=== PATIENT | female | born 1980 | race Caucasian/White ===

== ENCOUNTER 2024-01-09 08:47 | Outpatient (CLI) | payer OTHER, SELFPAY ==
--- NOTE | ~2024-01-09 | XR_ITS ---
XR wrist RT min 3V Ordering provider: Kboe Lyons, REFRIGERATING ENGINEER History: . Pain in right wrist . Comparison: None. FINDINGS: BONES: No acute fracture or dislocation. No definite scaphoid fracture. JOINT SPACES: Normal. SOFT TISSUES: Normal. IMPRESSION: No acute osseous abnormality right wrist. Reviewed, dictated and finalized at location A.
== END 2024-01-09 08:48 ==
LOC: MICIMG 08:50
PROVIDERS: PCP Nurse Practitioner Family; Visit Provider Nurse Practitioner Family
DX: M25.531 Pain in right wrist (principal)
CPT/HCPCS: 73110

== ENCOUNTER 2024-04-14 10:05 | Outpatient (CLI) | payer OTHER, SELFPAY ==
--- NOTE | 2024-04-14 10:20 | NEURO_ITS ---
Impression: # Complains of Right forearm discomfort # Normal Nerve Conduction Study. # Normal needle/EMG exam. # No Carpal Tunnel Syndrome # No Ulnar Neuropathy Nerve Conduction Studies Anti Sensory Summary Table Stim Site NR Peak (ms) P-T Amp (?V) Site1 Site2 Delta-P (ms) Dist (cm) Hari (m/s) Right Median Anti Sensory (2-3nd Digit) Wrist 3.2 57.4 Wrist 2-3nd Digit 3.2 14.0 44 Wrist 3.3 35.0 Wrist 2-3nd Digit 3.2 14.0 44 Right Radial Anti Sensory (Base 1st Digit) Wrist 2.1 28.9 Wrist Base 1st Digit 2.1 0.0 Right Ulnar Anti Sensory (5th Digit) Wrist 2.3 62.3 Wrist 5th Digit 2.3 14.0 61 Motor Summary Table Stim Site NR Onset (ms) O-P Amp (mV) Site1 Site2 Delta-0 (ms) Dist (cm) Hari (m/s) Right Median Motor (Abd Poll Brev) Wrist 3.2 10.0 Elbow Wrist 4.8 26.0 54 Elbow 8.0 8.8 Right Ulnar Motor (Abd Dig Minimi) Wrist 2.7 7.6 A Elbow Wrist 4.8 29.0 60 A Elbow 7.5 6.3 F Wave Studies NR F-Lat (ms) L-R F-Lat (ms) Right Median (Mrkrs) (Abd Poll Brev) 26.77 Right Ulnar (Mrkrs) (Abd Dig Min) 27.18 EMG Side Muscle Nerve Root Ins Act Fibs Amp Dur Recrt Comment Right 1stDorInt Ulnar C8-T1 Nml Nml Nml Nml Nml Right Ext Indicis Radial (Post Int) C7-8 Nml Nml Nml Nml Nml Right Ext Digitorum Radial (Post Int) C7-8 Nml Nml Nml Nml Nml Right BrachioRad Radial C5-6 Nml Nml Nml Nml Nml Right PronatorTeres Median C6-7 Nml Nml Nml Nml Nml Right Abd Poll Brev Median C8-T1 Nml Nml Nml Nml Nml Right ABD Dig Min Ulnar C8-T1 Nml Nml Nml Nml Nml MTDD
== END 2024-04-14 10:06 | disposition home or self-care (01) ==
LOC: ANHNEURO 10:07
PROVIDERS: PCP Nurse Practitioner Family; Visit Provider Nurse Practitioner Family
DX: R20.2 Paresthesia of skin (principal)
CPT/HCPCS: 95886; 95909

== ENCOUNTER 2024-07-08 08:46 | Outpatient (CLI) | payer OTHER, SELFPAY ==
--- NOTE | ~2024-07-08 | XR_ITS ---
XR wrist LT min 3V 07/08/2024 08:59 Indication: Carpal tunnel syndrome. Procedure: 4 views left wrist Comparison: 11/19/2018 Findings: There is a side plate and screws transfixing a healed distal radial fracture. One of the di stal screws extends posterior to the radius into the soft tissue. No acute fracture or traumatic zoey lignment. Impression: 1: No acute bone or joint abnormality. Reviewed, dictated and finalized at location A. A REPORTER Impression: 1: No acute bone or joint abnormality.
--- OUTSIDE RECORDS SUMMARY | 2024-07-09 22:00 | XMS_ITS | Encounter Summary ---
Author Organization [facility] Address [address] [place] [address] Care Team Providers Care Wholesale And Retail Merchant Name Role Phone Nava Mckeon MD Primary Care Prov ider Unavailable Encounter Details Date Type Department Care Team (Late st Contact Info) Description 10/03/2000 Outpatient Historical [facility] Internal Medicine [place] [address] [place] [address] Ruben De LaO MD [address] [place] [address] Social History Tobacco Use Types Packs/Day Years Used Date Smoking Tobacco: Never Assessed Comments Unknown Sex and Gender Information Value Date Recorded Sex Assigned at Not on file Legal Sex Female 4:46 AM SOFTWARE QUALITY 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
--- OUTSIDE RECORDS SUMMARY | 2024-07-09 22:00 | XMS_ITS | Encounter Summary ---
Author Organization [facility] Address [address] [place] [address] Care Team Providers Care Simplex Printer Installer Name Role Phone Nava Mckeon MD Primary Care Prov ider Unavailable Encounter Details Date Type Department Care Team (Late st Contact Info) Description 09/17/2002 Outpatient Historical [facility] Internal Medicine [place] [address] [place] [address] Ruben De La O MD [address] [place] [address] Social History Tobacco Use Types Packs/Day Years Used Date Smoking Tobacco: Never Assessed Comments Unknown Sex and Gender Information Value Date Recorded Sex Assigned at Not on file Legal Sex Female 4:46 AM COMMERCIAL LINES ASSISTANT Gender Identity Not on file Sexual Orientation Not on file documented as of this encounter Plan of Treatment Not on file documented as of this encounter Visit Diagnoses Not on filedocumented in this encounter Care Teams Simplex Printer Installer Relationship Specialty Start Date End Date Naav Mckeon MD PCP - General 11/10/08 06/24/11 documented as of this encounter
--- OUTSIDE RECORDS SUMMARY | 2024-07-09 22:00 | XMS_ITS | Continuity of Care Document ---
Author Organization [facility] Address [address] [place] [address] Phone Care Team Providers Care Toolmaker Helper Name Role Phone Administrative, Provider Unavailable Unavail able Procedures Procedure Date Medical Record Copy Medical Record Copy Per Page Office/outpatient visit,est, mod 2007 Disability Form Office/outpatient visit,new, mod 2007 X-ray exam of pelvis, 1-2 views 008 Advance Directives Directive Yes / No Effective Date File Name No Information Encounters Encounter Description Practice Location Reason(s) For Visit Diagnoses Date Provider Providers Copied on Encounter [facility], [address] [place] [address], [id number], [place] tel:[phone] [employer] No Information [address] [place] [address], [address], [id number], [place]. tel:[phone] Office/outpa tient visit,est, mod [facility], [address] [place] [address], [id number], [place] tel:[phone] [facility] No Information 2 8 Amaury Montez. [address] [facility], [facility] [address], [place], [place], [id number], [place]. tel:[phone] [facility], [address] [place] [address], [id number], [place] tel:[phone] [facility] No Information 0200 8 Amaury Montez. [address] [facility], [address], [place], [place], [id number], [place]. tel:[phone] Office[facility]outpa [facility]ient visit,[facility], [address] [facility] [address], [id number], tel:[phone] [facility] No Information 8 Amaury Montez. [address] [facility], [address], [place], [place], [id number], [place]. tel:[phone] Family History Family Member Type Diagnosis Age At Onset No Information Payers Payer name Insurance type Covered constitution party ID Authoriza tion(s) No Information Social History Type Description Quantity Date Captured Comments Sex Female Smoking Status No Information Chief Complaint And Reason For Visit No Information Reason For Referral Reason For Referral No Information History Of Present Illness Encounter Date Complaint History Of Prese nt Illness No Information Functional Status Date Functional Assessmen t No Information Instructions Date Instruction Additional Infor mation No Information Assessments Type Assessment Date No Information Patient Care Teams Name Effective Dates (start - stop) Status Members No Information
--- OUTSIDE RECORDS SUMMARY | 2024-07-09 22:00 | XMS_ITS | Encounter Summary ---
Author Organization [facility] Address [address] [place] [address] Care Team Providers Care Library Circulation Technician Name Role Phone Unavailable Primary Care Provider Unavailabl e Encounter Details Date Type Department Care Team (Late st Contact Info) Description 07/28/2018 Lab Requisition [facility] Care DermPath Lab [address] [facility], [place] [address] Catalina Rueda MD [address] [facility] [address] [place] [address] Social History Tobacco Use Types Packs/Day Years Used Date Smoking Tobacco: Never Assessed Sex and Gender Information Value Date Recorded Sex Assigned at Not on file Gender Identity Not on file Sexual Orientation Not on file documented as of this encounter Plan of Treatment Not on file documented as of this encounter Procedures Procedure Name Priority Date/Time Associated Diagnosis Comments DERMATOPATH TECHNICAL REPORT Routine 07/25/2018 12:00 AM AIR DRIER MACHINE OPERATOR documented in this encounter Results * DERMATOPATH TECHNICAL REPORT (07/25/2018 12:00 AM AIR DRIER MACHINE OPERATOR) Case Report Dermatopathology Report ? Case: [id number] ? Authorizing Provider: ??Catalina Rueda MD ? Collected: ? 07/25/2018 12:00 AM ? Pathologist: ? Urbano Mac MD ? Received: ?07/28/2018 07:05 AM ? Specimen: ?Skin, right post ear ? 6:14 PM [facility] DERMATOPATHOLOGY [facility]ORATORY Addendum 1 At the request of the diagnosing physician, the technical component for CD3, CD20 and CD68 was performed by [facility] Dermatopathology Laboratory. 6:14 PM [facility] DERMATOPATHOLOGY [facility]OR[facility] Addendum electronically signed by Urbano Mac MD on 07/31/2018 at 6:14 PM Clinical History BCC. Non-healing. Check margins. 6:14 PM [facility] DERMATOPATHOLOGY [facility]ORAT[facility] Gross Description Specimen A: Received is one formalin filled container labeled with the patient's name and designated right post ear. The specimen consists of a shave measuring [id number]. Jar 0. [facility] Dermatopathology Laboratory performed the technical component only. 6:14 PM [facility] DERMATOPATHOLOGY [facility]ORAT[facility] Embedded Images 6:14 PM [facility] DERMATOPATHOLOGY [facility]ORAT[facility] DISCLAIMER An external and internal positive and negative controls are appropriate for the histochemical, immunohistochemical and immunofluorescence stain(s) in this case (if any), except where stated explicitly. The performance characteristics of the stain(s) cited in this report were developed and its performance characteristic determined by the Dermatopathology Laboratory at [facility], directed by Dr. Rima Mac. These tests need not be, and therefore are not, approved by the [place] Food and Drug Administration. The tests are used for clinical purposes. 6:14 PM [facility] DERMATOPATHOLOGY [facility]ORATORY Pathology/Cytolog y TISSUE SPECIMEN FROM SKIN / Unknown 07/25/2018 07/28/2018 7:05 AM AIR DRIER MACHINE OPERATOR Catalina Rueda MD LAB - PATHOLOGY/CYT OLOGY ORDERABLES DERMATOPATHOLOGY LABORATORY [facility] - Department of Dermatology [address] [facility], [address] [place] [address], [facility] [phone] documented in this encounter Visit Diagnoses Not on filedocumented in this encounter
--- OUTSIDE RECORDS SUMMARY | 2024-07-09 22:00 | XMS_ITS | Encounter Summary ---
Author Organization [facility] Address [address] [place] [address] Care Team Providers Care Lamp Shades Supervisor Name Role Phone Nava Mckeon MD Primary Care Prov ider Unavailable Encounter Details Date Type Department Care Team (Late st Contact Info) Description 04/16/2007 Outpatient Historical [facility] Internal Medicine [place] [address] [place] [address] Ruben De La O MD [address] [place] [address] Social History Tobacco Use Types Packs/Day Years Used Date Smoking Tobacco: Never Assessed Comments No Sex and Gender Information Value Date Recorded Sex Assigned at Not on file Legal Sex Female 4:46 AM COMMUNITY EDUCATION SPECIALIST Gender Identity Not on file Sexual Orientation Not on file documented as of this encounter Plan of Treatment Not on file documented as of this encounter Visit Diagnoses Not on filedocumented in this encounter Care Teams Lamp Shades Supervisor Relationship Specialty Start Date End Date Nava Mckeon MD PCP - General 11/10/08 06/24/11 documented as of this encounter
--- OUTSIDE RECORDS SUMMARY | 2024-07-09 22:00 | XMS_ITS | Encounter Summary ---
Author Organization [facility] Address [address] [place] [address] Care Team Providers Care Board Worker Name Role Phone Nava Mckeon MD Primary Care Prov ider Unavailable Encounter Details Date Type Department Care Team (Late st Contact Info) Description 04/20/2005 Outpatient Historical [facility] Internal Medicine [place] [address] [place] [address] Ruben De La O MD [address] [place] [address] Social History Tobacco Use Types Packs/Day Years Used Date Smoking Tobacco: Never Assessed Comments Unknown Sex and Gender Information Value Date Recorded Sex Assigned at Not on file Legal Sex Female 4:46 AM TREASURY SPECIALIST Gender Identity Not on file Sexual Orientation Not on file documented as of this encounter Plan of Treatment Not on file documented as of this encounter Visit Diagnoses Not on filedocumented in this encounter Care Teams Board Worker Relationship Specialty Start Date End Date Nava Mckeon MD PCP - General 11/10/08 06/24/11 documented as of this encounter
--- OUTSIDE RECORDS SUMMARY | 2024-07-09 22:00 | XMS_ITS | Encounter Summary ---
Author Organization [facility] Address [address] [place] [address] Care Team Providers Care Aircraft Ordnance Technician Name Role Phone Nava Mckeon MD Primary Care Prov ider Unavailable Encounter Details Date Type Department Care Team (Late st Contact Info) Description 10/12/2003 Outpatient Historical [facility] Internal Medicine [place] [address] [place] [address] Ruben De La O MD [address] [place] [address] Social History Tobacco Use Types Packs/Day Years Used Date Smoking Tobacco: Never Assessed Comments Unknown Sex and Gender Information Value Date Recorded Sex Assigned at Not on file Legal Sex Female 4:46 AM VA UNDERWRITER Gender Identity Not on file Sexual Orientation Not on file documented as of this encounter Plan of Treatment Not on file documented as of this encounter Visit Diagnoses Not on filedocumented in this encounter Care Teams Aircraft Ordnance Technician Relationship Specialty Start Date End Date Nava Mckeon MD PCP - General 11/10/08 06/24/11 documented as of this encounter
--- OUTSIDE RECORDS SUMMARY | 2024-07-09 22:00 | XMS_ITS | Encounter Summary ---
Author Organization [facility] Address [address] [place] [address] Care Team Providers Care Marine Oiler Name Role Phone Nava Mckeon MD Primary Care Prov ider Unavailable Encounter Details Date Type Department Care Team (Late st Contact Info) Description 12/27/1999 Outpatient Historical [facility] Internal Medicine [place] [address] [place] [address] Ruben De La O MD [address] [place] [address] Social History Tobacco Use Types Packs/Day Years Used Date Smoking Tobacco: Never Assessed Comments Unknown Sex and Gender Information Value Date Recorded Sex Assigned at Not on file Legal Sex Female 4:46 AM CATALOG LIBRARY ASSISTANT Gender Identity Not on file Sexual Orientation Not on file documented as of this encounter Plan of Treatment Not on file documented as of this encounter Visit Diagnoses Not on filedocumented in this encounter Care Teams Marine Oiler Relationship Specialty Start Date End Date Nava Mckeon MD PCP - General 11/10/08 06/24/11 documented as of this encounter
--- OUTSIDE RECORDS SUMMARY | 2024-07-09 22:00 | XMS_ITS | Referral Summary ---
Author Organization [facility] Address [address] [place] [address] Care Team Providers Care Panman Name Role Phone Kobe Lyons NP Primary Care Provider [phone] Encounters Date Type Department Care Team Description 04/09/2024 3:23 PM CDT - 04/09/2024 11:59 PM CDT Hospital Encounter [facility] - Imaging [address] [place] [address] Screening mammogram, encounter for Discharge Disposition: Discharge to home or self care from Last 3 Months Allergies Active Allergy Reactions Criticality Noted Date Comments Adhesive Rash Medium Paper tape is ok Latex Rash Medium 01/19/2015 FROM LATEX BANDAIDS SKIN PEELING Oxycodone Vomiting Low Percocet -vomiting Medications cetirizine (ZyrTEC) 10 mg tabletIndicatio ns:Seasonal Allergic Rhinitis Take 10 mg by mouth nightly Active valACYclovir (VALTREX) 1 gram tablet TK 2 TS PO Q 12 H FOR 1 DAY PRN for cold sores 2 8 Active ipratropium (ATROVENT) 0.03 % nasal spray U 2 SPRAYS IEN TID PRN 5 8 Active PROAIR RESPICLICK 90 mcg/actuation aerosol powdr breath activated INL 2 PFS PO Q 4 H PRN 0 9 Active multivitamin with minerals (HAIR,SKIN AND NAILS ORAL) Take 1 tablet by mouth every morning Active Lactobacillus acidophilus (PROBIOTIC ORAL) Take 1 capsule by mouth nightly Active gluc wheatley/chondro wheatley A/vit C/Mn (GLUCOSAMINE 1500 COMPLEX ORAL)Indication s:arthritis Take 1 tablet by mouth 2 (two) times a day Active levonorgestreL (Mirena) IUD Mirena 20 mcg/24 hours (5 yrs) 52 mg intrauterine device Take by intrauterine route. 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 Dysuria 02/17/2021 Fracture of pelvis (CMS/HCC) 02/17/2021 Lower urinary tract infectious disease Neuropathy 02/17/2021 Otalgia 02/17/2021 Seasonal allergies 02/17/2021 Secondary peripheral neuropathy 02/17/2021 Shoulder pain 02/17/2021 Ulcerative lesion 02/17/2021 Upper respiratory infection 02/17/2021 Injury of left wrist 11/21/2018 Closed fracture of left distal radius 11/21/2018 Overview (11/21/2018): Added automatically from request for surgery [id number] Acne 10/22/2014 Overview (09/20/2016): Acne Immunizations Name Administration Dates Next Due Flucelvax Influenza Quad 03/25/2017,06/08/2013 Influenza, Quadrivalent, Spl it, Preservative Free, Intramuscular 03/28/2018 Influenza, Trivalent, IM (MDV) 04/25/2014,2012,04/25/2010 Influenza, Trivalent, Preser vative Free, Intramuscular 03/22/2016,04/05/2015 Tdap 10/14/2017,11/20/2007 Social History Tobacco Use Types Packs/Day Years Used Date Smoking Tobacco: Never Smokeless Tobacco: Never Alcohol Use Standard Drinks/Week Comments Yes 0 (1 standard drink = 0.6 oz pur e alcohol) SOCIAL Humiliation, Afraid, Rape, and Kick questionnair e Answer Date Recorded Fear of Current or Ex-Partner Patient declined 0 01/14/2019 Emotionally Abused Patient declined 01/14/2019 Physically Abused Patient declined 01/14/2019 Sexually Abused Patient declined 01/14/2019 Social Connection and Isolation Panel [NHANES] A nswer Date Recorded Frequency of Communication with Friends and Fami ly Patient declined 01/14/2019 Frequency of Social Gatherings with Friends and Family Patient declined 01/14/2019 Attends Buddhist Services Patient declined 12/17 Active Member of Clubs or Organizations Patient declined 01/14/2019 Attends Club or Organization Meetings Patient de clined 01/14/2019 Marital Status Patient declined 01/14/2019 AUDIT-C Answer Date Recorded Frequency of Alcohol Consumption Monthly or less 11/24/2018 Average Number of Drinks Not on file 019 Frequency of Binge Drinking Not on file 11/15 Overall Financial Resource Strain (CARDIA) Answe r Date Recorded Difficulty of Paying Living Expenses Patient dec lined 01/14/2019 [facility] - Occupational Stress Questionnaire Answer Date Recorded Feeling of Stress Patient declined 01/14/2019 Exercise Vital Sign Answer Date Recorde d Days of Exercise per Week Patient declined 01/14 Minutes of Exercise per Session Patient declined 01/14/2019 Hunger Vital Sign Answer Date Recorded Worried About Running Out of Food in the Last Ye ar Patient declined 01/14/2019 Ran Out of Food in the Last Year Patient decline d 01/14/2019 PRAPARE - Transportation Answer Date Re corded Lack of Transportation (Medical) Patient decline d 01/14/2019 Lack of Transportation (Non-Medical) Patient dec lined 01/14/2019 Comments No Sex and Gender Information Value Date Recorded Sex Assigned at Not on file Legal Sex Female 2:09 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 Gender Identity Female 02/16/2020 7:54 PM CDT Sexual Orientation Straight 02/16/2020 7: 54 PM CDT Last Filed Vital Signs Vital Sign Reading Time Taken Comments Blood Pressure 114/70 02/17/2021 1:22 PM CDT Pulse 82 11/27/2018 2:30 PM CDT Temperature 36.7 ??C (98.1 ??F) 11/27/2018 2:17 PM CD T Respiratory Rate 16 11/27/2018 2:17 PM CDT Oxygen Saturation 95% 11/27/2018 2:30 PM CDT Inhaled Oxygen Concentration - - Weight 54.9 kg (121 lb) 02/17/2021 1:22 PM CDT Height 160 cm (5' 3 ) 02/17/2021 1:22 PM CDT Body Mass Index 21.43 02/17/2021 1:22 PM CDT Plan of Treatment Not on file Medical Devices Implanted Type Area Electrical Maintenance Mechanic Device Identifier Shelf Expiration Date Model / Serial / Lot Trimed 3 Hole Bearing - Left Implanted:Qty: 1 on 11/27/2018 by Ro Mcdowell MD at [facility] Plate Left: [employer] Description:Ref#[id number] [employer] Trx2.3-18 2.3mm 18mm Ankle Cortical Screw Bone - [id number] Implanted:Qty: 2 on 11/27/2018 by Ro Mcdowell MD at [facility] Left: [employer] TRX2.3-18 / / [employer] Tpeg-16 16mm Thread Lock Torx Wrist Volar Peg Fixation - [id number] Implanted:Qty: 3 on 11/27/2018 by Ro Mcdowell MD at [facility] Left: [employer] TPEG-16 / / [employer] Tpeg-18 18mm Thread Lock Torx Wrist Volar Peg Fixation - [id number] Implanted:Qty: 2 on 11/27/2018 by Ro Mcdowell MD at [facility] Left: [employer] TPEG-18 / / [employer] Hex3.2-10 3.2mm 10mm Hexagonal Cortical Screw Bone Ankle Fixation System - [id number] Implanted:Qty: 2 on 11/27/2018 by Ro Mcdowell MD at [facility] Left: [employer] HEX3.2-10 / / [employer] Hex 3212 3.2mm 12mm Hexagonal Cortical Screw Bone Ankle Fixation System - [id number] Implanted:Qty: 1 on 11/27/2018 by Ro Mcdowell MD at [facility] Left: [employer] HEX 3212 / / Explanted Type Area Electrical Maintenance Mechanic Device Identifier Shelf Expiration Date Model / Serial / Lot Trim[employer] Trx2.3-18 2.3mm 18mm Ankle Cortical Screw Bone - [id number] Explanted:Qty: 1 on 11/27/2018 at [facility] [employer] TRX2.3-18 / / [employer] Hex 3214 3.2mm 14mm Hexagonal Cortical Screw Bone Ankle Fixation System - [id number] Implanted:Qty: 1 Explanted:Qty: 1 on 11/27/2018 at [facility] Left: [employer] HEX 3214 / / Procedures Procedure Name Priority Date/Time Associated Diagnosis Comments SCREENING MAMMOGRAM BILATERAL W ANTOINE Schedule Routine, Read Routine (OP Routine) 04/09/2024 3:45 PM CDT Screening mammogram, encounter for PAP WITH REFLEX TO HIGH RISK HPV Routine 02/17/2021 5:34 PM CDT Screening for malignant neoplasm of the cervix from Last 3 Months or Most Recently Relevant to Health Maintenance Results * Screening Mammogram Bilateral W Antoine (04/09/2024 3:45 PM CDT) Anatomical Region Laterality Modality Breast Bilateral Mammography Narrative 04/09/2024 5:20 PM CDT Examination: Screening Mammogram Bilateral W Antoine: 04/09/24 Clinical: Screening mammogram, encounter for. Prior Study Comparisons: Comparison was made to the prior available relevant studies at the time of interpretation. Findings: Screening Mammogram Bilateral W Antoine Bilateral No significant masses, malignant type calcifications, skin thickening, nipple retraction, or significant lymphadenopathy is noted in either breast. Computer Aided Detection was utilized for the interpretation of this study. The breasts are extremely dense, which lowers the sensitivity of mammography. The patient will be notified of results by letter. Impression: BI-RADS?? ATLAS category (overall): 2 - Benign ?? There is no mammographic evidence of malignancy. Routine Screening Mammogram in 1 Yr is recommended for bilateral Overall Assessment: 2 - Benign us Self Screening Mammogram IMG MAMMO PROCEDURES Fi nal Result * Pap with reflex to High Risk HPV (02/17/2021 5:34 PM CDT) Swab (Pap test) 02/17/2021 5 :34 PM CDT 02/25/2021 12:12 PM CDT Narrative PATHOLOGY [facility] - 03/02/2021 10:19 AM CDT EPIC results best viewed via link to PDF [address] ??[id number] Tele: ?? Tiarra Grigsby MD - Oral Surgery Physician CYTOLOGY REPORT Note to Patients: This report may contain a detailed description of human tissue sent by a health care provider to the laboratory for pathologic evaluation. The content of this report is essential for diagnosis and may provide important critical findings. This information may be unfamiliar to patients to review without a medical professional present. It is advised that the patient review this report in the presence of a health care provider who can answer questions and explain the details. Patient Name: ??RONEY SEWELL Address: ??[address] [place] [address] Gender: ??F : ??1980 (Age: 40) Service: ?? Location: ?? Hospital #: ??[id number] Patient Type: ??[facility] SPECIMEN Taken: ??02/17/2021 Reported: ??03/02/2021 Physician(s): ? Kirsten Zazueta M.D. FINAL DIAGNOSIS: Specimen Type: ?- ThinPrep Pap w/ reflex HPV Statement of Specimen Adequacy: Source: ??Cervical/Endocervical ?- Satisfactory for interpretation ?- Endocervical /Transformation Zone component present ?- Case screened using computer assisted imaging technology General Categorization: ?- Negative for intraepithelial lesion or malignancy ?? tgates/03/02/2021 10:19 GINGER Wolff (ASCP) ?? Report Reviewed and Electronically Signed By ??GINGER Wolff (ASCP) Clerical Data Follow A; [id number] CLINICAL DIAGNOSIS AND HISTORY Menstrual History: Amenorrhea Contraceptive History: IUD REPORT IMAGES AND/OR SCANNED DOCUMENTS ONLY VIEWABLE IN PDF FORMAT The Pap test is a screening test used to aid in the detection of cervical cancer and its precursors. It should not be the sole means by which malignant and premalignant lesions are diagnosed. ??Both false negative and false positive results may occur. ??It also has poor sensitivity for the detection of endometrial lesions and should not be used to evaluate suspected endometrial abnormalities. ??For these reasons it is most important to obtain Pap tests at regular intervals, as recommended by your physician or nurse practitioner. us Kirsten Zazueta MD LAB CYTOLOGY ORDERABLES Fin al Result PATHOLOGY [facility] Laboratory Receiving [address] [place] [address] from Last 3 Months or Most Recently Relevant to Health Maintenance Insurance [facility] HMO/PPO Address: [address] [address] [place] [address] [facility] CHOICE PLUS [facility] HMO/PPO Address: [address] [address] [place] [address] Advance Directives For more information, please contact: [phone] Documents on File Type Date Recorded Patient Poured Wall Foreman Expl anation ADVANCE DIRECTIVE 12/03/2018 1:32 PM POWER OF HOSPITAL AIDE-FINANCIAL/MEDICAL ADVANCE DIRECTIVE 11/28/2018 8:05 PM ADVANCE DIRECTIVE 11/27/2018 9:53 AM POWER OF HOSPITAL AIDE-MEDICAL ADVANCE DIRECTIVE 11/27/2018 9:50 AM POWER OF HOSPITAL AIDE-MEDICAL ADVANCE DIRECTIVE 01/21/2015 12:00 AM POWER OF HOSPITAL AIDE FINANCIAL/MEDICAL Care Teams Panman Relationship Specialty Start Date End Date Kobe Lyons, SHIPPING TECHNICIAN [address] [place] [address] PCP - General Family Medicine 01/22/24
--- OUTSIDE RECORDS SUMMARY | 2024-07-09 22:00 | XMS_ITS | Encounter Summary ---
Author Organization [facility] Address 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 Gender Identity Not on file Sexual Orientation Not on file documented as of this encounter Plan of Treatment Not on file documented as of this encounter Procedures Procedure Name Priority Date/Time Associated Diagnosis Comments TSH REFLEXIVE Routine 03/15/2006 12:40 PM CDT CBC WITH DIFFERENTIAL Routine 03/15/2006 12:40 PM CDT CBC WITH DIFFERENTIAL Routine 03/15/2006 12:40 PM CDT BASIC METABOLIC PANEL Routine 03/15/2006 12:40 PM CDT documented in this encounter Results * (ABNORMAL) CBC WITH DIFFERENTIAL (03/15/2006 12:40 PM CDT) NEUTROPHILS 40(L) 45 - 70 % INTERFAC E SYSTEM LYMPHOCYTES 48(H) 16 - 45 % INTERFAC E SYSTEM MONOCYTES 8 3 - 13 % INTERFACE SYSTEM EOSINOPHILS 3 0 - 7 % INTERFAC E SYSTEM BASOPHILS 1 0 - 2 % INTERFACE SYSTEM NEUTROPHIL ABSOLUTE 1.98 1.90 - 7.00 K/uL INTERFACE SYSTEM LYMPHOCYTE ABSOLUTE 2.41 0.70 - 4.50 K/uL INTERFACE SYSTEM MONOCYTE ABSOLUTE 0.41 0.10 - 1.30 K/uL INTERFACE SYSTEM EOSINOPHIL ABSOLUTE 0.14 0.00 - 0.70 K/uL INTERFACE SYSTEM BASOPHILS ABSOLUTE 0.04 0.00 - 0.20 K/uL INTERFACE SYSTEM 03/15/2006 12:4 0 PM CDT Ruben De La O MD HEMATOLOGY ORDERABLES Final R esult Performing Organization Address [facility] de Phone Number INTERFACE SYSTEM Refer to clinic/hospital department * (ABNORMAL) CBC WITH DIFFERENTIAL (03/15/2006 12:40 PM CDT) [facility] WBC 5.0 4.0 - 9.8 K/uL INTERFACE SYSTEM RBC 4.63 3.90 - 4.90 M/uL INTERFACE SYSTEM HEMOGLOBIN 13.4 11.8 - 14.8 g/dL INTERFACE SYSTEM HEMATOCRIT 39.6 35.5 - 44.0 % INTERFACE SYSTEM MCV 85.5 82.0 - 99.0 fL INTERFACE SYSTEM MCH 28.9 27.2 - 32.6 pg INTERFACE SYSTEM MCHC 33.8 31.5 - 35.5 % INTERFACE SYSTEM RDW 11.7 11.5 - 14.5 % INTERFACE SYSTEM RDW-STDEV 36.3(L) 37.1 - 48.7 fL INTERFACE SYSTEM PLATELETS 239 140 - 350 K/uL INTERFACE SYSTEM MPV 11.0 9.3 - 12.4 fL INTERFACE SYSTEM 03/15/2006 12:4 0 PM CDT Ruben De La O MD HEMATOLOGY ORDERABLES Final R esult Performing Organization Address [facility] Co de Phone Number INTERFACE SYSTEM Refer to clinic/hospital department * TSH REFLEXIVE (03/15/2006 12:40 PM CDT) TSH 1.02 0.27 - 4.20 uU/mL INTERFACE SYSTEM 03/15/2006 12:4 0 PM CDT Ruben De La O MD CHEMISTRY ORDERABLES Final Re sult Performing Organization Address [facility] de Phone Number INTERFACE SYSTEM Refer to clinic/hospital department * BASIC METABOLIC PANEL (03/15/2006 12:40 PM CDT) GLUCOSE 88 65 - 99 mg/dL INTERFACE SYSTEM CREATININE 0.8 0.4 - 1.2 mg/dL INTERFACE SYSTEM CALCIUM 9.2 8.4 - 10.2 mg/dL INTERFACE SYSTEM BUN 12 6 - 20 mg/dL INTERFACE SYSTEM SODIUM 140 135 - 145 mmol/L INTERFACE SYSTEM POTASSIUM 4.0 3.5 - 4.9 mmol/L INTERFACE SYSTEM CHLORIDE 103 96 - 108 mmol/L INTERFACE SYSTEM CO2 26 22 - 30 mmol/L INTERFACE SYSTEM 03/15/2006 12:4 0 PM CDT Ruben De La O MD CHEMISTRY ORDERABLES Final Re sult Performing Organization Address [place]/[facility] Phone Number INTERFACE SYSTEM Refer to clinic/hospital department documented in this encounter Visit Diagnoses Diagnosis Routine general medical examination at a health care facility- Primary documented in this encounter Care Teams Research Recruiter Relationship Specialty Start Date End Date Nava Mckeon MD PCP - General 11/10/08 06/24/11 documented as of this encounter
--- OUTSIDE RECORDS SUMMARY | 2024-07-09 22:00 | XMS_ITS | Encounter Summary ---
Author Organization [facility] Address 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
--- OUTSIDE RECORDS SUMMARY | 2024-07-09 22:00 | XMS_ITS | Encounter Summary ---
Author Organization Address 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
--- OUTSIDE RECORDS SUMMARY | 2024-07-09 22:00 | XMS_ITS | Encounter Summary ---
Author Organization [facility] Address 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
--- OUTSIDE RECORDS SUMMARY | 2024-07-09 22:00 | XMS_ITS | Encounter Summary ---
Author Organization [facility] Address 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
--- OUTSIDE RECORDS SUMMARY | 2024-07-09 22:00 | XMS_ITS | Encounter Summary ---
Author Organization [facility] Address 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
--- OUTSIDE RECORDS SUMMARY | 2024-07-09 22:00 | XMS_ITS | Encounter Summary ---
Author Organization [facility] Address [address] [place] [address] Care Team Providers Care Thumb Sewer Name Role Phone Nava Mckeon MD Primary Care Prov ider Unavailable Encounter Details Date Type Department Care Team (Late st Contact Info) Description 03/29/1998 Outpatient Historical [facility] Internal Medicine [place] [address] [place] [address] Ruben De La O MD [address] [place] [address] Social History Tobacco Use Types Packs/Day Years Used Date Smoking Tobacco: Never Assessed Comments Unknown Sex and Gender Information Value Date Recorded Sex Assigned at Not on file 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
--- OUTSIDE RECORDS SUMMARY | 2024-07-09 22:00 | XMS_ITS | Encounter Summary ---
Author Organization [facility] Address 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
--- OUTSIDE RECORDS SUMMARY | 2024-07-09 22:00 | XMS_ITS | Encounter Summary ---
Author Organization [facility] Address 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
--- OUTSIDE RECORDS SUMMARY | 2024-07-09 22:00 | XMS_ITS | Encounter Summary ---
Author Organization [facility] Address [address] [place] [address] Care Team Providers Care Community Center Coordinator Name Role Phone Nava Mckeon MD Primary Care Prov ider Unavailable Encounter Details Date Type Department Care Team (Late st Contact Info) Description 04/02/2008 Outpatient Historical [facility] Ruben De La O MD [address] [place] [address] Other Malaise and Fatigue Social History Tobacco Use Types Packs/Day Years Used Date Smoking Tobacco: Never Alcohol Use Standard Drinks/Week Comments Not Asked 0 (1 standard drink = 0.6 oz pur e alcohol) Comments No Sex and Gender Information Value Date Recorded Sex Assigned at Not on file 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
--- OUTSIDE RECORDS SUMMARY | 2024-07-09 22:00 | XMS_ITS | Encounter Summary ---
Author Organization [email or web address] Address 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
--- OUTSIDE RECORDS SUMMARY | 2024-07-09 22:00 | XMS_ITS | Encounter Summary ---
Author Organization [facility] Address [address] [place] [address] Care Team Providers Care Electrician Constructor Supervisor Name Role Phone Nava Mckeon MD Primary Care Prov ider Unavailable Encounter Details Date Type Department Care Team (Late st Contact Info) Description 09/24/2001 Outpatient Historical [facility] Internal Medicine [place] [address] [place] [address] Ruben De La O MD [address] [place] [address] Social History Tobacco Use Types Packs/Day Years Used Date Smoking Tobacco: Never Assessed Comments Unknown Sex and Gender Information Value Date Recorded Sex Assigned at Not on file 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
--- OUTSIDE RECORDS SUMMARY | 2024-07-09 22:00 | XMS_ITS | Encounter Summary ---
Author Organization [facility] Address [address] [place] [address] Care Team Providers Care Battery Assembler Plastic Name Role Phone Nava Mckeon MD Primary Care Prov ider Unavailable Encounter Details Date Type Department Care Team (Late st Contact Info) Description 12/11/2002 Outpatient Historical [facility] Internal Medicine [place] [address] [place] [address] Ruben De La O MD [address] [place] [address] Social History Tobacco Use Types Packs/Day Years Used Date Smoking Tobacco: Never Assessed Comments Unknown Sex and Gender Information Value Date Recorded Sex Assigned at Not on file 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
--- OUTSIDE RECORDS SUMMARY | 2024-07-09 22:00 | XMS_ITS | Referral Summary ---
Author Organization [facility] Address [address] [place] [address] Care Team Providers Care Rn Advice Name Role Phone Unavailable Primary Care Provider Unavailabl e Source Comments [facility],non-owned Affiliates and Associated Physician Practices is amultiple site organization consisting of ambulatory clinics and hospital sitesin [place], [place], [place] and [place]. This disclosure is being madepursuant to the Care Everywhere program and may not contain all information available regarding this patient. Last updated 18.[facility] Social History Tobacco Use Types Packs/Day Years Used Date Smoking Tobacco: Never Assessed Sex and Gender Information Value Date Recorded Sex Assigned at Not on file Gender Identity Not on file Sexual Orientation Not on file Plan of Treatment [place] [address]
--- OUTSIDE RECORDS SUMMARY | 2024-07-09 22:00 | XMS_ITS | Encounter Summary ---
Author Organization [facility] Address 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
--- OUTSIDE RECORDS SUMMARY | 2024-07-09 22:00 | XMS_ITS | Encounter Summary ---
Author Organization [facility] Address 

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
--- OUTSIDE RECORDS SUMMARY | 2024-07-09 22:00 | XMS_ITS | Encounter Summary ---
Author Organization [facility] Address 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
--- OUTSIDE RECORDS SUMMARY | 2024-07-09 22:00 | XMS_ITS | Encounter Summary ---
Author Organization [facility] Address [address] [place] [address] Care Team Providers Care Manager Immunology Name Role Phone Nava Mckeon MD Primary Care Prov ider Unavailable Encounter Details Date Type Department Care Team (Late st Contact Info) Description 10/04/[address] 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
--- OUTSIDE RECORDS SUMMARY | 2024-07-09 22:00 | XMS_ITS | Encounter Summary ---
Author Organization [facility] Address [address] [place] [address] Care Team Providers Care On Site Construction Superintendent Name Role Phone Nava Mckeon MD Primary Care Prov ider Unavailable Encounter Details Date Type Department Care Team (Late st Contact Info) Description 12/30/2003 Outpatient Historical [facility] Internal Medicine [place] [address] [place] [address] Ruben De La O MD [address] [place] [address] Social History Tobacco Use Types Packs/Day Years Used Date Smoking Tobacco: Never Assessed Comments Unknown Sex and Gender Information Value Date Recorded Sex Assigned at Not on file 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
--- OUTSIDE RECORDS SUMMARY | 2024-07-09 22:00 | XMS_ITS | Clinical Summary ---
Author Organization [facility] Address [address] [place] [address] Care Team Providers Care Second Rigger Name Role Phone Unavailable Primary Care Provider Unavailabl e Source Comments [facility],non-owned Affiliates and Associated Physician Practices is amultiple site organization consisting of ambulatory clinics and hospital sitesin [place], [place], [place] and [place]. This disclosure is being madepursuant to the Care Everywhere program and may not contain all information available regarding this patient. Last updated 18.[facility] [employer] Social History Tobacco Use Types Packs/Day Years Used Date Smoking Tobacco: Never Assessed Sex and Gender Information Value Date Recorded Sex Assigned at Not on file Gender Identity Not on file Sexual Orientation Not on file Plan of Treatment Health Maintenance Due Date Last Done Comments LIPID TESTING 1979 MAMMOGRAM 1979 PAP SMEAR 1979 HIV SCREENING 1994 HEPATITIS C SCREENING 08/09/1997 DTAP/TDAP/TD VACCINES (1 - Tdap) 1998 HEPATITIS B VACCINE (1 of 3 - 19+ 3-dose series) 1998 COVID-19 VACCINE (2023-2 5 season) 2024 INFLUENZA VACCINE (#1) 2024 DEPRESSION SCREENING 06/17/2024 ZOSTER VACCINE (1 of 2) 2029 HIB VACCINE Aged Out No longer eligi ble based on patient's age to complete this topic HPV VACCINE Aged Out No longer eligi ble based on patient's age to complete this topic MENINGOCOCCAL (Group B) VACCINE Aged Out No longer eligible based on patient's age to complete this topic MENINGOCOCCAL VACCINE Aged Out No patricia nithya eligible based on patient's age to complete this topic PNEUMOCOCCAL VACCINE Aged Out No long er eligible based on patient's age to complete this topic
--- OUTSIDE RECORDS SUMMARY | 2024-07-09 22:00 | XMS_ITS | Encounter Summary ---
Author Organization [facility] Address 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
--- OUTSIDE RECORDS SUMMARY | 2024-07-09 22:00 | XMS_ITS | Encounter Summary ---
Author Organization [facility] Address 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
--- OUTSIDE RECORDS SUMMARY | 2024-07-09 22:00 | XMS_ITS | Patient Health Summary ---
Author Organization [facility] Address [address] [place] [address] Care Team Providers Care Supervisor Winding Department Name Role Phone Unavailable Primary Care Provider Unavailabl e Note from [facility],non-owned Affiliates and Associated Physician Practices is amultiple site organization consisting of ambulatory clinics and hospital sitesin [place], [place] and [place]. This disclosure is being madepursuant to the Care Everywhere program and may not contain all information available regarding this patient. Last updated 18.[facility] Social History Tobacco Use Types Packs/Day Years Used Date Smoking Tobacco: Never Assessed Sex and Gender Information Value Date Recorded Sex Assigned at Not on file Gender Identity Not on file Sexual Orientation Not on file Procedures * DERMATOPATH TECHNICAL REPORT(Performed 07/25/2018) Results * DERMATOPATH TECHNICAL REPORT (07/25/2018 12:00 AM SENIOR RISK ANALYST) Case Report Dermatopathology Report ? Case: [id number] ? Authorizing Provider: ??Catalina Rueda MD ? Collected: ? 07/25/2018 12:00 AM ? Pathologist: ? Urbano Mac MD ? Received: ?07/28/2018 07:05 AM ? Specimen: ?Skin, right post ear ? 6:14 PM [facility] Addendum 1 At the request of the diagnosing physician, the technical component for CD3, CD20 and CD68 was performed by [facility] Dermatopathology [facility]. 6:14 PM [facility] Addendum electronically signed by Urbano Mac MD on 07/31/2018 at 6:14 PM Clinical History BCC. Non-healing. Check margins. 6:14 PM [facility] Gross Description Specimen A: Received is one formalin filled container labeled with the patient's name and designated right post ear. The specimen consists of a shave measuring [id number]. Jar 0. [facility]at[facility] performed the technical component only. 6:14 PM [facility] Embedded Images 6:14 PM [facility] DISCLAIMER An external and internal positive and negative controls are appropriate for the histochemical, immunohistochemical and immunofluorescence stain(s) in this case (if any), except where stated explicitly. The performance characteristics of the stain(s) cited in this report were developed and its performance characteristic determined by the Dermatopathology Laboratory at [facility], directed by Dr. Rima Mac. These tests need not be, and therefore are not, approved by the [place] Food and Drug Administration. The tests are used for clinical purposes. 6:14 PM [facility] Pathology/Cytolog y TISSUE SPECIMEN FROM SKIN / Unknown 07/25/2018 07/28/2018 7:05 AM SENIOR RISK ANALYST Catalian Rueda MD LAB - PATHOLOGY/CYT OLOGY ORDERABLES DERMATOPATHOLOGY LABORATORY [facility] - Department of Dermatology [address] [place] [address] 5th Floor Lab [address] [place], [place] [id number] [place] [address]
--- OUTSIDE RECORDS SUMMARY | 2024-07-09 22:00 | XMS_ITS | Clinical Summary ---
Author Organization [facility] Address [address] [place] [address] Care Team Providers Care Manager Placement Name Role Phone Kobe Lyons NP Primary Care Provider Allergies Active Allergy Reactions Criticality Noted Date [...] Take by intrauterine route. Active vit D3-vit Y-rtkedizcy-dgp s [id number] klfc-pju-ju-mg tablet Take by mouth Active pregabalin (LYRICA) [...] (11/21/2018): Added automatically from request for surgery [id number] Acne 10/22/2014 Overview (09/20/2016): Acne Encounters Date Type Department Care Team Description 04/09/2024 3:23 PM CDT - 04/09/2024 11:59 PM CDT Hospital Encounter [facility] - Imaging [address] [place] [address] Screening mammogram, encounter for Discharge Disposition: Discharge to home or self care from Last 3 Months Immunizations Name Administration Dates Next Due Flucelvax Influenza Quad 03/25/2017,06/08/2013 Influenza, Quadrivalent, Spl it, Preservative Free, Intramuscular 03/28/2018 Influenza, Trivalent, IM (MDV) 04/25/2014,2012,04/25/2010 Influenza, Trivalent, Preser vative Free, Intramuscular 03/22/2016,04/05/2015 Tdap 10/14/2017,11/20/2007 Surgical History Surgery Date Site/Laterality Comments TONSILLECTOMY OTHER SURGICAL HISTORY [place] Correction PILONIDAL CYSTECTOMY WISDOM TOOTH EXTRACTION Medical History Medical History Date Comments Hx Other Medical Acne; Comments: 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 sores Asthma Bronchitis Family History Medical History Relation Name Comments No Known Problems Father Breast cancer Maternal Grandmother recurr ed same breast Breast cancer Mother Cancer, breast ; Hypertension Mother Hypertension; Anesthesia problems Sister Relation Name Status Comments Father Father's Sister (Age 57) Maternal Grandmother Alive Mother Alive Mother's Sister 1 Alive Mother's Sister 2 Alive Mother's Sister 3 Alive Paternal Grandmother (Age 70) Sister Alive Social History Tobacco Use Types Packs/Day Years [...] Friends and Family Patient declined 01/14/2019 Attends Gnostic[employer] Services Patient declined 12/17 Active Member of [...] Paying Living Expenses Patient dec lined 01/14/2019 [facility] [place] [facility] Occupat ional Health - Occupational Stress [...] on file Legal Sex Female 2:[address] 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 Gender Identity Female 02/16/2020 7:54 PM CDT Sexual Orientation Straight 02/16/2020 7: 54 PM CDT Obstetrics History Last Filed Vital Signs Vital Sign Reading [...] 02/17/2021 1:22 PM CDT Plan of Treatment Health Maintenance Due Date Last Done Comments Depression Screening 1980 Hepatitis C Screening 1980 Varicella Vaccines (1 of 2 - 13+ 2-dose series) 1992 Hepatitis B Screening 1997 Cervical Cancer Screening 02/17/20222020, 02/17/2020, 02/08/2017, Additional history exists Regular Well Visit/Exam 18-64 02/17/2022 02/17/2021, 02/17/2020, 02/13/2019, Additional history exists Influenza Vaccine (#1) 2024 , 03/28/2018, 03/25/2017, Additional history exists Breast Cancer Screening-Mammogram 04/09/2025 04/09/2024, 02/28/2023, 02/20/2022, Additional history exists DTaP/Tdap/Td Vaccine (3 - Td or Tdap) 10/15/2027 10/14/2017, 11/20/2007 HPV Vaccines Aged Out No longer eligi ble based on patient's age to complete this topic Pneumococcal vaccine <65 Aged Out No longer eligible based on patient's age to complete this topic Medical Devices Implanted Type Area Machine Carton Marker Device Identifier Shelf Expiration Date Model / Serial / Lot Trimed 3 Hole Bearing - Left Implanted:Qty: 1 on 11/27/2018 by Ro Mcdowell MD at [facility] Plate Left: [employer] Description:Ref#[id number] [employer] Trx2.3-18 2.3mm 18mm Ankle Cortical Screw Bone - [id number] Implanted:Qty: 2 on 11/27/2018 by Ro Mcdowell MD at [facility] Left: [employer] TRX2.3-18 / / [employer] Tpeg-16 16mm Thread Lock Torx Wrist Volar Peg Fixation - [id number] Implanted:Qty: 3 on 11/27/2018 by Ro Mcdowell MD at [facility] Left: [employer] TPEG-16 / / [employer] Tpeg-18 18mm Thread Lock Torx Wrist Volar Peg Fixation - [id number] Implanted:Qty: 2 on 11/27/2018 by Ro Mcdowell MD at [facility] Left: [employer] TPEG-18 / / [employer] Hex3.2-10 3.2mm 10mm Hexagonal Cortical Screw Bone Ankle Fixation System - [id number] Implanted:Qty: 2 on 11/27/2018 by Ro Mcdowell MD at [facility] Left: [employer] HEX3.2-10 / / [employer] Hex 3212 3.2mm 12mm Hexagonal Cortical Screw Bone Ankle Fixation System - [id number] Implanted:Qty: 1 on 11/27/2018 by Ro Mcdowell MD at [facility] Left: [employer] HEX 3212 / / Explanted Type Area Machine Carton Marker Device Identifier Shelf Expiration Date Model / Serial / Lot Trimed Inc Trx2.3-18 2.3mm 18mm Ankle Cortical Screw Bone - [id number] Explanted:Qty: 1 on 11/27/2018 at [facility] [employer] TRX2.3-18 / / [employer] Hex 3214 3.2mm 14mm Hexagonal Cortical Screw Bone Ankle Fixation System - [id number] Implanted:Qty: 1 Explanted:Qty: 1 on 11/27/2018 at [facility] Left: [employer] HEX 3214 / / Procedures Procedure [...] CDT 02/25/2021 12:12 PM CDT Narrative PATHOLOGY [facility] - 03/02/2021 10:19 AM CDT EPIC results best viewed via link to PDF [address] ??[id number] Tele: ?? Tiarra Grigsby MD - Central Processing Technician CYTOLOGY REPORT Note to Patients: This report [...] the details. Patient Name: ??RONEY SEWELL Address: ??[address] [place] [address], [place], [place] [address] Gender: ??F : ??1980 (Age: 40) Service: ?? Location: ?? Hospital #: ??[id number] Patient Type: ??[facility] SPECIMEN Taken: ??02/17/2021 Reported: ??03/02/2021 Physician(s): ? [...] LAB CYTOLOGY ORDERABLES Fin al Result PATHOLOGY [facility] Laboratory Receiving [address] [place] [address] from Last 3 Months or Most Recently Relevant to Health Maintenance Insurance [employer] [place] [facility] CHOICE PLUS [facility] CHOICE PLUS Advance Directives For more information, please contact: [phone] Documents on File Type Date Recorded Patient Business Analyst Project Manager Expl anation ADVANCE DIRECTIVE 12/03/2018 1:32 PM POWER OF TEXTILE CHEMIST-FINANCIAL/MEDICAL ADVANCE DIRECTIVE 11/28/2018 8:05 PM ADVANCE DIRECTIVE 11/27/2018 9:53 AM POWER OF TEXTILE CHEMIST-MEDICAL ADVANCE DIRECTIVE 11/27/2018 9:50 AM POWER OF TEXTILE CHEMIST-MEDICAL ADVANCE DIRECTIVE 01/21/2015 12:00 AM POWER OF TEXTILE CHEMIST FINANCIAL/MEDICAL Care Teams Manager Placement Relationship Specialty Start Date End Date Kobe Lyons NP [address] [place] [id number] PCP - General Family Medicine 01/22/24
--- OUTSIDE RECORDS SUMMARY | 2024-07-09 22:00 | XMS_ITS | Encounter Summary ---
Author Organization [facility] Address [address] [place] [address] Care Team Providers Care Juvenile Detention Officer Name Role Phone Nava Mckeon MD Primary Care Prov ider Unavailable Encounter Details Date Type Department Care Team (Late st Contact Info) Description 12/25/1999 Outpatient Historical [facility] Internal Medicine [place] [address] [place] [address] Ruben De La O MD [address] [place] [address] Social History Tobacco Use Types Packs/Day Years Used Date Smoking Tobacco: Never Assessed Comments Unknown Sex and Gender Information Value Date Recorded Sex Assigned at Not on file Legal Sex Female 4:46 AM SLAG DUMPER Gender Identity Not on file Sexual Orientation Not on file documented as of this encounter Plan of Treatment Not on file documented as of this encounter Visit Diagnoses Not on filedocumented in this encounter Care Teams Juvenile Detention Officer Relationship Specialty Start Date End Date Nava Mckeon MD PCP - General 11/10/08 06/24/11 documented as of this encounter
--- OUTSIDE RECORDS SUMMARY | 2024-07-09 22:00 | XMS_ITS | Encounter Summary ---
Author Organization [facility] Address [address] [place] [address] Care Team Providers Care Special Agent Name Role Phone Nava Mckeon MD Primary Care Prov ider Unavailable Encounter Details Date Type Department Care Team (Late st Contact Info) Description 03/18/2000 Outpatient Historical [facility] Internal Medicine [place] [address] [place] [address] Ruben De La O MD [address] [place] [address] Social History Tobacco Use Types Packs/Day Years Used Date Smoking Tobacco: Never Assessed Comments Unknown Sex and Gender Information Value Date Recorded Sex Assigned at Not on file Legal Sex Female 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
== END 2024-07-08 08:47 | disposition home or self-care (01) ==
PROVIDERS: PCP Nurse Practitioner Family; Visit Provider Plastic Surgery
DX: G56.02 Carpal tunnel syndrome, left upper limb (principal)
CPT/HCPCS: 73110

== ENCOUNTER 2024-10-05 07:22 | Outpatient (CLI) | payer OTHER, SELFPAY ==
--- NOTE | ~2024-10-05 | XR_ITS ---
Lumbosacral Spine: AP and lateral views Clinical History: Pain Findings: The normal lordotic curve is maintained. The vertebral bodies and posterior elements are i ntact. The intervertebral disc spaces are preserved. The sacroiliac joints are normally outlined. Impression: No significant abnormality. Reviewed, dictated and finalized at [facility]. Impression: No significant abnormality.
== END 2024-10-05 07:23 | disposition home or self-care (01) ==
PROVIDERS: PCP Nurse Practitioner Family; Visit Provider Nurse Practitioner Family
DX: M54.50 Low back pain, unspecified (principal)
CPT/HCPCS: 72100

== ENCOUNTER 2024-10-06 10:47 | Outpatient (CLI) | payer OTHER, SELFPAY ==
--- NOTE | 2024-10-06 12:00 | NEURO_ITS ---
Impression: # Complains of numbness of left hand. Non-diabetic. ? # Ulnar neuropathy across the elbow. ? # No Carpal Tunnel Syndrome. ? # Needle/EMG exam mildly abnormal in 1st DI. Nerve Conduction Studies Anti Sensory Summary Table ?Stim Site NR Peak (ms) P-T Amp (?V) Site1 Site2 Delta-P (ms) Dist (cm) Hari (m/s) Left Median Anti Sensory (2-3nd Digit) Wrist ? 3.0 59.1 Wrist 2-3nd Digit 3.0 14.0 47 Wrist ? 3.3 65.8 Wrist 2-3nd Digit 3.0 14.0 47 Left Radial Anti Sensory (Base 1st Digit) Wrist ? 2.1 35.6 Wrist Base 1st Digit 2.1 0.0 Left Ulnar Anti Sensory (5th Digit) Wrist ? 2.8 39.4 Wrist 5th Digit 2.8 14.0 50 Motor Summary Table ?Stim Site NR Onset (ms) O-P Amp (mV) Site1 Site2 Delta-0 (ms) Dist (cm) Hari (m/s) Left Median Motor (Abd Poll Brev) Wrist ? 3.4 3.8 Elbow Wrist 4.8 28.0 58 Elbow ? 8.2 8.3 Left Ulnar Motor (Abd Dig Minimi) Wrist ? 2.8 6.0 A Elbow Wrist 5.4 28.0 52 A Elbow ? 8.2 5.5 B Elbow Wrist 3.1 20.0 65 B Elbow ? 5.9 5.5 F Wave Studies ?NR F-Lat (ms) L-R F-Lat (ms) Left Median (Mrkrs) (Abd Poll Brev) ? 27.72 Left Ulnar (Mrkrs) (Abd Dig Min) ? 27.13 EMG ?Side Muscle Nerve Root Ins Act Fibs Amp Dur Recrt Comment Left 1stDorInt Ulnar C8-T1 Nml Nml Incr >12ms +1 Left Ext Indicis Radial (Post Int) C7-8 Nml Nml Nml Nml Nml Left Ext Digitorum Radial (Post Int) C7-8 Nml Nml Nml Nml Nml Left BrachioRad Radial C5-6 Nml Nml Nml Nml Nml Left PronatorTeres Median C6-7 Nml Nml Nml Nml Nml Left Abd Poll Brev Median C8-T1 Nml Nml Nml Nml Nml Left ABD Dig Min Ulnar C8-T1 Nml Nml Nml Nml Nml Left FlexPolLong Median (Ant Int) C7-8 Nml Nml Nml Nml Nml Left Abd Poll Long Radial (Post Int) C7-8 Nml Nml Nml Nml Nml ? MTDD
--- OUTSIDE RECORDS SUMMARY | 2024-10-06 12:28 | XMS_ITS | Encounter Summary ---
Author Organization [facility] Address [address] [place] [address] Care Team Providers Care Residential Gas Heat Technician Name Role Phone Nava Mckeon MD Primary Care Prov ider Unavailable Encounter Details Date Type Department Care Team (Late st Contact Info) Description 12/25/1999 Outpatient Historical [facility] Internal Medicine [place] [address] [place] [address] Ruben De La O MD [address] [place] [address] Social History Tobacco Use Types Packs/Day Years Used Date Smoking Tobacco: Never Assessed Comments Unknown Sex and Gender Information Value Date Recorded Sex Assigned at Not on file Legal Sex Female 4:46 AM 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
--- OUTSIDE RECORDS SUMMARY | 2024-10-06 12:28 | XMS_ITS | Encounter Summary ---
Author Organization [facility] Address [address] [place] [address] Care Team Providers Care Traffic Control Officer Name Role Phone Nava Mckeon MD Primary Care Prov ider Unavailable Encounter Details Date Type Department Care Team (Late st Contact Info) Description 03/06/2000 Outpatient Historical [facility] Internal Medicine [place] [address] [place] [address] Ruben De La O MD [address] [place] [address] Social History Tobacco Use Types Packs/Day Years Used Date Smoking Tobacco: Never Assessed Comments Unknown Sex and Gender Information Value Date Recorded Sex Assigned at Not on file Legal Sex Female 4:46 AM PRODUCT DEVELOPMENT CARPENTER Gender Identity Not on file Sexual Orientation Not on file documented as of this encounter Plan of Treatment Not on file documented as of this encounter Visit Diagnoses Not on filedocumented in this encounter Care Teams Traffic Control Officer Relationship Specialty Start Date End Date Nava Mckeon MD PCP - General 11/10/08 06/24/11 documented as of this encounter
--- OUTSIDE RECORDS SUMMARY | 2024-10-06 12:28 | XMS_ITS | Encounter Summary ---
Author Organization [facility] Address [address] [place] [address] Care Team Providers Care Substation Operator Transforming Name Role Phone Nava Mckeon MD Primary Care Prov ider Unavailable Encounter Details Date Type Department Care Team (Late st Contact Info) Description 08/24/2005 Outpatient Historical [facility] Internal Medicine [place] [address] [place] [address] Ruben De La O MD [address] [place] [address] Social History Tobacco Use Types Packs/Day Years Used Date Smoking Tobacco: Never Assessed Comments Unknown Sex and Gender Information Value Date Recorded Sex Assigned at Not on file Legal Sex Female 4:46 AM EMAIL MARKETER Gender Identity Not on file Sexual Orientation Not on file documented as of this encounter Plan of Treatment Not on file documented as of this encounter Visit Diagnoses Not on filedocumented in this encounter Care Teams Substation Operator Transforming Relationship Specialty Start Date End Date Nava Mckeon MD PCP - General 11/10/08 06/24/11 documented as of this encounter
--- OUTSIDE RECORDS SUMMARY | 2024-10-06 12:28 | XMS_ITS | Encounter Summary ---
Author Organization [email or web address] Address [address] [place] [address] Care Team Providers Care Gas Operation Manager Name Role Phone Nava Mckeon MD Primary Care Prov ider Unavailable Encounter Details Date Type Department Care Team (Late st Contact Info) Description 03/15/2006 Outpatient Historical [facility] Ruben De La O MD [address] [place] [address] Routine General Medical Examination at a Health Care Facility (Primary Dx) Social History Tobacco Use Types Packs/Day Years Used Date Smoking Tobacco: Never Assessed Comments Unknown Sex and Gender Information Value Date Recorded Sex Assigned at Not on file Legal Sex Female 4:46 AM RECEPTION MANAGER Gender Identity Not on file Sexual Orientation [...] ORDERABLES Final R esult Performing Organization Address [facility] de Phone Number INTERFACE SYSTEM Refer to clinic/hospital department * (ABNORMAL) CBC WITH DIFFERENTIAL (03/15/2006 12:40 PM CDT) [facility] WBC 5.0 4.0 - 9.8 K/uL [...] ORDERABLES Final R esult Performing Organization Address [facility] Co de Phone Number INTERFACE SYSTEM Refer to clinic/hospital department * TSH REFLEXIVE (03/15/2006 12:40 PM CDT) TSH 1.02 0.27 - 4.20 uU/mL INTERFACE SYSTEM 03/15/2006 12:4 0 PM CDT Ruben De La O MD CHEMISTRY ORDERABLES Final Re sult Performing Organization Address [facility] de Phone Number INTERFACE SYSTEM Refer to [...] ORDERABLES Final Re sult Performing Organization Address [facility] Phone Number INTERFACE SYSTEM Refer to clinic/hospital department documented in this encounter Visit Diagnoses Diagnosis Routine general medical examination at a health care facility- Primary documented in this encounter Care Teams Gas Operation Manager Relationship Specialty Start Date End Date Nava Mckeon MD PCP - General 11/10/08 06/24/11 documented as of this encounter
--- OUTSIDE RECORDS SUMMARY | 2024-10-06 12:28 | XMS_ITS | Encounter Summary ---
Author Organization [facility] Address [address] [place] [address] Care Team Providers Care Ballistician Name Role Phone Nava Mckeon MD Primary Care Prov ider Unavailable Encounter Details Date Type Department Care Team (Late st Contact Info) Description 03/29/1998 Outpatient Historical [facility] Internal Medicine [place] [address] [place] [address] Ruben De La O MD [address] [place] [address] Social History Tobacco Use Types Packs/Day Years Used Date Smoking Tobacco: Never Assessed Comments Unknown Sex and Gender Information Value Date Recorded Sex Assigned at Not on file Legal Sex Female 4:46 AM TAPPER HAND Gender Identity Not on file Sexual Orientation Not on file documented as of this encounter Plan of Treatment Not on file documented as of this encounter Visit Diagnoses Not on filedocumented in this encounter Care Teams Ballistician Relationship Specialty Start Date End Date Nava Mckeon MD PCP - General 11/10/08 06/24/11 documented as of this encounter
--- OUTSIDE RECORDS SUMMARY | 2024-10-06 12:28 | XMS_ITS | Encounter Summary ---
Author Organization [facility] Address [address] [place] [address] Care Team Providers Care Motion Picture Equipment Supervisor Name Role Phone Nava Mckeon MD Primary Care Prov ider Unavailable Encounter Details Date Type Department Care Team (Late st Contact Info) Description 02/15/2000 Outpatient Historical [facility] Internal Medicine [place] [address] [place] [address] Ruben De La O MD [address] [place] [address] Social History Tobacco Use Types Packs/Day Years Used Date Smoking Tobacco: Never Assessed Comments Unknown Sex and Gender Information Value Date Recorded Sex Assigned at Not on file Legal Sex Female 4:46 AM 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
--- OUTSIDE RECORDS SUMMARY | 2024-10-06 12:28 | XMS_ITS | Encounter Summary ---
Author Organization [facility] Address [address] [place] [address] Care Team Providers Care Banquet Steward Name Role Phone Nava Mckeon MD Primary Care Prov ider Unavailable Encounter Details Date Type Department Care Team (Late st Contact Info) Description 04/25/1999 Outpatient Historical [facility] Internal Medicine [place] [address] [place] [address] Ruben De La O MD [address] [place] [address] Social History Tobacco Use Types Packs/Day Years Used Date Smoking Tobacco: Never Assessed Comments Unknown Sex and Gender Information Value Date Recorded Sex Assigned at Not on file Legal Sex Female 4:46 AM SPEECH AND LANGUAGE CLINICIAN Gender Identity Not on file Sexual Orientation Not on file documented as of this encounter Plan of Treatment Not on file documented as of this encounter Visit Diagnoses Not on filedocumented in this encounter Care Teams Banquet Steward Relationship Specialty Start Date End Date Nava Mckeon MD PCP - General 11/10/08 06/24/11 documented as of this encounter
--- OUTSIDE RECORDS SUMMARY | 2024-10-06 12:28 | XMS_ITS | Encounter Summary ---
Author Organization [facility] Address [address] [place] [address] Care Team Providers Care Proc Tech Name Role Phone Nava Mckeon MD Primary Care Prov ider Unavailable Encounter Details Date Type Department Care Team (Late st Contact Info) Description 03/15/[address] 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
--- OUTSIDE RECORDS SUMMARY | 2024-10-06 12:28 | XMS_ITS | Encounter Summary ---
Author Organization [facility] Address [address] [place] [address] Care Team Providers Care Commercial Construction Project Manager Name Role Phone Nava Mckeon MD Primary Care Prov ider Unavailable Encounter Details Date Type Department Care Team (Late st Contact Info) Description 11/18/2000 Outpatient Historical [facility] Internal Medicine [place] [address] [place] [address] Ruben De La O MD [address] [place] [address] Social History Tobacco Use Types Packs/Day Years Used Date Smoking Tobacco: Never Assessed Comments Unknown Sex and Gender Information Value Date Recorded Sex Assigned at Not on file Legal Sex Female 4:46 AM STICK WELDER Gender Identity Not on file Sexual Orientation Not on file documented as of this encounter Plan of Treatment Not on file documented as of this encounter Visit Diagnoses Not on filedocumented in this encounter Care Teams Commercial Construction Project Manager Relationship Specialty Start Date End Date Nava Mckeon MD PCP - General 11/10/08 06/24/11 documented as of this encounter
--- OUTSIDE RECORDS SUMMARY | 2024-10-06 12:28 | XMS_ITS | Encounter Summary ---
Author Organization [facility] Address [address] [place] [address] Care Team Providers Care Stock Tracer Name Role Phone Nava Mckeon MD Primary Care Prov ider Unavailable Encounter Details Date Type Department Care Team (Late st Contact Info) Description 12/27/1999 Outpatient Historical [facility] Internal Medicine [place] [address] [place] [address] Ruben De La O MD [address] [place] [address] Social History Tobacco Use Types Packs/Day Years Used Date Smoking Tobacco: Never Assessed Comments Unknown Sex and Gender Information Value Date Recorded Sex Assigned at Not on file Legal Sex Female 4:46 AM SOCIAL WORK FACULTY MEMBER Gender Identity Not on file Sexual Orientation Not on file documented as of this encounter Plan of Treatment Not on file documented as of this encounter Visit Diagnoses Not on filedocumented in this encounter Care Teams Stock Tracer Relationship Specialty Start Date End Date Nava Mckeon MD PCP - General 11/10/08 06/24/11 documented as of this encounter
--- OUTSIDE RECORDS SUMMARY | 2024-10-06 12:28 | XMS_ITS | Encounter Summary ---
Author Organization [facility] Address [address] [place] [address] Care Team Providers Care Superintendent Production Name Role Phone Nava Mckeon MD Primary Care Prov ider Unavailable Encounter Details Date Type Department Care Team (Late st Contact Info) Description 07/11/1998 Outpatient Historical [facility] Internal Medicine [place] [address] [place] [address] Ruben De La O MD [address] [place] [address] Social History Tobacco Use Types Packs/Day Years Used Date Smoking Tobacco: Never Assessed Comments Unknown Sex and Gender Information Value Date Recorded Sex Assigned at Not on file Legal Sex Female 4:46 AM 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
--- OUTSIDE RECORDS SUMMARY | 2024-10-06 12:28 | XMS_ITS | Encounter Summary ---
Author Organization [facility] Address 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
--- OUTSIDE RECORDS SUMMARY | 2024-10-06 12:28 | XMS_ITS | Encounter Summary ---
Author Organization [facility] Address [address] [place] [address] Care Team Providers Care Stock Shaper Name Role Phone Nava Mckeon MD Primary Care Prov ider Unavailable Encounter Details Date Type Department Care Team (Late st Contact Info) Description 04/02/2008 Outpatient Historical [facility] Ruben De La O MD [address] [place] [address] Other Malaise and Fatigue Social History Tobacco Use Types Packs/Day Years Used Date Smoking Tobacco: Never Alcohol Use Standard Drinks/Week Comments Not Asked 0 (1 standard drink = 0.6 oz pur e alcohol) Comments No Sex and Gender Information Value Date Recorded Sex Assigned at Not on file Legal Sex Female 4:46 AM SCHOOL EXAMINER Gender Identity Not on file Sexual Orientation Not on file documented as of this encounter Plan of Treatment Not on file documented as of this encounter Visit Diagnoses Diagnosis Other malaise and fatigue documented in this encounter Care Teams Stock Shaper Relationship Specialty Start Date End Date Nava Mckeon MD PCP - General 11/10/08 06/24/11 documented as of this encounter
--- OUTSIDE RECORDS SUMMARY | 2024-10-06 12:28 | XMS_ITS | Continuity of Care Document ---
[facility] Address [address] [place] [address] Organization Unknown Address [address] [place] [address] Medications No known medications Problems No known problems
--- OUTSIDE RECORDS SUMMARY | 2024-10-06 12:28 | XMS_ITS | Encounter Summary ---
Author Organization [facility] Address 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
--- OUTSIDE RECORDS SUMMARY | 2024-10-06 12:28 | XMS_ITS | Encounter Summary ---
Author Organization [facility] Address [address] [place] [address] Care Team Providers Care Care Professional Name Role Phone Nava Mckeon MD Primary Care Prov ider Unavailable Encounter Details Date Type Department Care Team (Late st Contact Info) Description 03/18/2000 Outpatient Historical [facility] Internal Medicine [place] [address] [place] [address] Ruben De La O MD [address] [place] [address] Social History Tobacco Use Types Packs/Day Years Used Date Smoking Tobacco: Never Assessed Comments Unknown Sex and Gender Information Value Date Recorded Sex Assigned at Not on file Legal Sex Female 4:46 AM DENTAL INTERN Gender Identity Not on file Sexual Orientation Not on file documented as of this encounter Plan of Treatment Not on file documented as of this encounter Visit Diagnoses Not on filedocumented in this encounter Care Teams Care Professional Relationship Specialty Start Date End Date Nava Mckeon MD PCP - General 11/10/08 06/24/11 documented as of this encounter
--- OUTSIDE RECORDS SUMMARY | 2024-10-06 12:28 | XMS_ITS | Referral Summary ---
Author Organization [facility] Address [address] [place] [address] Care Team Providers Care Manager Call Name Role Phone Kobe Lyons NP Primary [...] Take by intrauterine route. 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/17/2021 Shoulder pain 02/17/2021 Ulcerative lesion 02/17/2021 Upper respiratory infection 02/17/2021 Injury of left wrist 11/21/2018 Closed fracture of left distal radius 11/21/2018 Overview (11/21/2018): Added automatically from request for surgery [id number] Acne 10/22/2014 Overview (09/20/2016): Acne Immunizations Immunization Administration Dates Next Due Flucelvax Influenza Quad [...] Friends and Family Patient declined 01/14/2019 Attends [employer] [facility] Patient declined 12/17 Active Member of [...] Paying Living Expenses Patient dec lined 01/14/2019 [facility] Occup[facility] - Occupational Stress [...] on file Legal 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 Female 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 Gender Identity Female 02/16/2020 7:54 PM CDT Sexual Orientation Straight 02/16/2020 7: 54 PM CDT Last Filed Vital Signs Vital Sign Reading Time Taken Comments Blood Pressure 114/70 02/17/2021 1:22 PM CDT Pulse 82 11/27/2018 2:30 PM CDT Temperature 36.7 C (98.1 F) 11/27/2018 2:17 PM CDT Respiratory Rate 16 11/27/2018 2:17 PM CDT Oxygen Saturation 95% 11/27/2018 2:30 PM CDT Inhaled Oxygen Concentration - - Weight 54.9 kg (121 lb) 02/17/2021 1:22 PM CDT Height 160 cm (5' 3 ) 02/17/2021 1:22 PM CDT Body Mass Index 21.43 02/17/2021 1:22 PM CDT Plan of Treatment Not on file Medical Devices Implanted Type Area Draughtsman Device Identifier Shelf Expiration Date Model / Serial / Lot Trimed 3 Hole Bearing - Left Implanted:Qty: 1 on 11/27/2018 by Ro Mcdowell MD at [facility] Plate Left: [employer] Description:Ref#[id number] Tr[employer] Trx2.3-18 2.3mm 18mm Ankle Cortical Screw Bone - [id number] Implanted:Qty: 2 on 11/27/2018 by Ro Mcdowell MD at [facility] Left: [employer] TRX2.3-18 / / Tr[employer] Tpeg-16 16mm Thread Lock Torx Wrist Volar Peg Fixation - [id number] Implanted:Qty: 3 on 11/27/2018 by Ro Mcdowell MD at [facility] Left: [employer] TPEG-16 / / [employer] Tpeg-18 18mm Thread Lock Torx Wrist Volar Peg Fixation - [id number] Implanted:Qty: 2 on 11/27/2018 by Ro Mcdowell MD at [facility] Left: [employer] TPEG-18 / / [employer] Hex3.2-10 3.2mm 10mm Hexagonal Cortical Screw Bone Ankle Fixation System - [id number] Implanted:Qty: 2 on 11/27/2018 by Ro Mcdowell MD at [facility] Left: [employer] HEX3.2-10 / / [employer] Hex 3212 3.2mm 12mm Hexagonal Cortical Screw Bone Ankle Fixation System - [id number] Implanted:Qty: 1 on 11/27/2018 by Ro Mcdowell MD at [facility] Left: [employer] HEX 3212 / / Explanted Type Area Draughtsman Device Identifier Shelf Expiration Date Model / Serial / Lot Trimed Inc Trx2.3-18 2.3mm 18mm Ankle Cortical Screw Bone - [id number] Explanted:Qty: 1 on 11/27/2018 at [facility] Tr[employer] TRX2.3-18 / / [employer] Hex 3214 3.2mm 14mm Hexagonal Cortical Screw Bone Ankle Fixation System - [id number] Implanted:Qty: 1 Explanted:Qty: 1 on 11/27/2018 at [facility] Left: [employer] HEX 3214 [...] be notified of results by letter. Impression: BI-RADS ATLAS category (overall): 2 - Benign There is no mammographic evidence of malignancy. Routine Screening Mammogram in 1 Yr is recommended for bilateral Overall Assessment: 2 - Benign us Self Screening Mammogram IMG MAMMO PROCEDURES Fi nal Result * Pap with reflex to High Risk HPV (02/17/2021 5:34 PM CDT) Swab (Pap test) 02/17/2021 5 :34 PM CDT 02/25/2021 12:12 PM CDT Narrative PATHOLOGY [facility] - 03/02/2021 10:19 AM CDT EPIC results best viewed via link to PDF [address] [address] Tele: Tiarra Grigsby MD - Electric Operator CYTOLOGY REPORT Note to Patients: This report [...] questions and explain the details. Patient Name: RONEY SEWELL Address: [address] [place] [address] Gender: F : 1980 (Age: 40) Service: Location: N : [id number] [facility] #: [id number] Patient Type: [facility] SPECIMEN Taken: 02/17/2021 Reported: 03/02/2021 Physician(s): Kirsten Zazueta M.D. FINAL DIAGNOSIS: Specimen Type: - ThinPrep Pap w/ reflex HPV Statement of Specimen Adequacy: Source: Cervical/Endocervical - Satisfactory for interpretation - Endocervical /Transformation Zone component present - Case screened using computer assisted imaging technology General Categorization: - Negative for intraepithelial lesion or malignancy tgates/03/02/2021 10:19 GINGER Wolff (ASCP) Report Reviewed and Electronically Signed By GINGER Wolff (ASCP) Clerical Data Follow A; G0145 CLINICAL DIAGNOSIS AND HISTORY Menstrual History: Amenorrhea Contraceptive History: IUD REPORT IMAGES AND/OR SCANNED DOCUMENTS ONLY VIEWABLE IN PDF FORMAT The Pap test is a screening test used to aid in the detection of cervical cancer and its precursors. It should not be the sole means by which malignant and premalignant lesions are diagnosed. Both false negative and false positive results may occur. It also has poor sensitivity for the detection of endometrial lesions and should not be used to evaluate suspected endometrial abnormalities. For these reasons it is most important to obtain Pap tests at regular intervals, as recommended by your physician or nurse practitioner. us Kirsten Zazueta MD LAB CYTOLOGY ORDERABLES Fin al Result PATHOLOGY [facility] Laboratory Receiving [address] [place] [address] from Last 3 Months or Most Recently Relevant to Health Maintenance Insurance BLUE [facility] CHOICE [facility]US [facility] HMO/PPO Address: [address] [address] [place] [address] [place] [facility] CHOICE PLUS [facility] H[facility]/PPO Address: [address] [address] [place] [address] Advance Directives For more information, please contact: [phone] Documents on File Type Date Recorded Patient General Matcher Expl anation ADVANCE DIRECTIVE 12/03/2018 1:32 PM POWER OF FRONT DESK RECEPTIONIST-FINANCIAL/MEDICAL ADVANCE DIRECTIVE 11/28/2018 8:05 PM ADVANCE DIRECTIVE 11/27/2018 9:53 AM POWER OF FRONT DESK RECEPTIONIST-MEDICAL ADVANCE DIRECTIVE 11/27/2018 9:50 AM POWER OF FRONT DESK RECEPTIONIST-MEDICAL ADVANCE DIRECTIVE 01/21/2015 12:00 AM POWER OF FRONT DESK RECEPTIONIST FINANCIAL/MEDICAL Care Teams Manager Call Relationship Specialty Start Date End Date Kobe [place]ons NP [address] [place] [address] PCP - General Family Medicine 01/22/24
--- OUTSIDE RECORDS SUMMARY | 2024-10-06 12:28 | XMS_ITS | Encounter Summary ---
Author Organization [facility] Address 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
--- OUTSIDE RECORDS SUMMARY | 2024-10-06 12:28 | XMS_ITS | Continuity of Care Document ---
Author Organization [facility] Address [address] [place] [address] Phone Care Team Providers Care Paperback Machine Operator Name Role Phone Administrative, Provider Unavailable Unavail [...] Date Provider Providers Copied on Encounter [facility], [address] [place] [address], [id number], [place] tel:[phone] [place] No Information 9 Administrative Provider. [address] [place] [address], [address], [id number], [place]. tel:[phone] Office/outpa tient visit,est, mod [facility], [address] [place] [address], [id number], [place] tel:[phone] [facility] No Information 2 8 Amaury Montez. [address] [facility], [facility], [place], [place], [id number], [place]. tel:[phone] [facility], [address] [place] [address], [id number], [place] tel:[phone] [facility] No Information 0200 8 Amaury Montez. [address] [facility], [address], [place], [place], [id number], [place]. tel:[phone] Office/outpa tient visit,[facility], [address], [id number], tel:[phone] [facility] No Information 8 Amaury Montez. [address] [facility], [address], [place], [place], [id number], [place]. tel:[phone] Family History Family Member Type Diagnosis Age At Onset No Information Payers Payer name Insurance type Covered libertarian ID Authoriza tion(s) No Information Social History [...]
--- OUTSIDE RECORDS SUMMARY | 2024-10-06 12:28 | XMS_ITS | Clinical Summary ---
Author Organization [facility] Address [address] [place] [address] Care Team Providers Care Yarn Tester Name Role Phone Kobe Lyons NP Primary Care Provider [phone] Allergies Active Allergy Reactions Criticality Noted Date [...] Take by intrauterine route. Active vit D3-vit H-khklaiohr-oxb s [id number] wxzc-jdd-xb-mg tablet Take by mouth Active pregabalin (LYRICA) [...] (11/21/2018): Added automatically from request for surgery [id number] Acne 10/22/2014 Overview (09/20/2016): Acne Immunizations Immunization [...] Friends and Family Patient declined 01/14/2019 Attends [employer] Patient declined 12/17 Active Member of [...] Paying Living Expenses Patient dec lined 01/14/2019 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 Gender Identity Female 02/16/2020 7:54 PM CDT [...] Health Maintenance Due Date Last Done Comments Colon Cancer Screening-Colonoscopy 1979 Depression Screening 1979 Hepatitis C Screening 1979 [...] this topic Medical Devices Implanted Type Area Cant Hooker Device Identifier Shelf Expiration Date Model / Serial / Lot Trimed 3 Hole Bearing - Left Implanted:Qty: 1 on 11/27/2018 by Ro Mcdowell MD at [facility] Plate Left: [employer] Description:Ref#[id number] [employer] Trx2.3-18 2.3mm 18mm Ankle Cortical Screw Bone - [id number] Implanted:Qty: 2 on 11/27/2018 by Ro Mcdowell MD at [facility] Left: [employer] TRX2.3-18 / / [employer] Tpeg-16 16mm Thread Lock Torx Wrist Volar Peg Fixation - [id number] Implanted:Qty: 3 on 11/27/2018 by Ro Mcdowell MD at [facility] Left: [employer] TPEG-16 / / [employer] Tpeg-18 18mm Thread Lock Torx Wrist Volar Peg Fixation - [id number] Implanted:Qty: 2 on 11/27/2018 by Ro Mcdowell MD at [facility] Left: [employer] TPEG-18 / / [employer] Hex3.2-10 3.2mm 10mm Hexagonal Cortical Screw Bone Ankle Fixation System - [id number] Implanted:Qty: 2 on 11/27/2018 by Ro Mcdowell MD at [facility] Left: [employer] HEX3.2-10 / / [employer] Hex 3212 3.2mm 12mm Hexagonal Cortical Screw Bone Ankle Fixation System - [id number] Implanted:Qty: 1 on 11/27/2018 by Ro Mcdowell MD at [facility] Left: [employer] HEX 3212 / / Explanted Type Area Cant Hooker Device Identifier Shelf Expiration Date Model / Serial / Lot Trimed Inc Trx2.3-18 2.3mm 18mm Ankle Cortical Screw Bone - [id number] Explanted:Qty: 1 on 11/27/2018 at [facility] [employer] TRX2.3-18 / / [employer] Hex 3214 3.2mm 14mm Hexagonal Cortical Screw Bone Ankle Fixation System - [id number] Implanted:Qty: 1 Explanted:Qty: 1 on 11/27/2018 at [facility] Left: [employer] HEX 3214 / [...] CDT 02/25/2021 12:12 PM CDT Narrative PATHOLOGY [facility] - 03/02/2021 10:19 AM CDT EPIC results best viewed via link to PDF [address] [address] Tele: Tiarra Grigsby MD - Wafer Cleaner CYTOLOGY REPORT Note to Patients: This report [...] the details. Patient Name: RONEY SEWELL Address: [address] [place] [address] 61 Gender: F : 1980 (Age: 40) Service: Location: Hospital #: [id number] Patient Type: [facility] [place] Taken: 02/17/2021 Reported: 03/02/2021 Physician(s): Kirsten [...] recommended by your physician or nurse practitioner. Kirsten Zazueta MD LAB CYTOLOGY ORDERABLES [facility] al Result PATHOLOGY [facility] Laboratory Receiving [address] [place] [address] from Last 3 Months or Most Recently Relevant to Health Maintenance Insurance [place] [place] [facility] CHO[facility] PLUS Advance Directives For more information, please contact: [phone] Documents on File Type Date Recorded Patient Phlebotomist Medical Lab Assistant Expl anation ADVANCE DIRECTIVE 12/03/2018 1:32 PM POWER OF ELEMENTARY SUBSTITUTE TEACHER-FINANCIAL/MEDICAL ADVANCE DIRECTIVE 11/28/2018 8:05 PM ADVANCE DIRECTIVE 11/27/2018 9:53 AM POWER OF ELEMENTARY SUBSTITUTE TEACHER-MEDICAL ADVANCE DIRECTIVE 11/27/2018 9:50 AM POWER OF ELEMENTARY SUBSTITUTE TEACHER-MEDICAL ADVANCE DIRECTIVE 01/21/2015 12:00 AM POWER OF ELEMENTARY SUBSTITUTE TEACHER FINANCIAL/MEDICAL Care Teams Yarn Tester Relationship Specialty Start Date End Date Kobe Lyons NP [address] [place] [address] [place] [address] PCP - General Family Medicine 01/22/24
--- OUTSIDE RECORDS SUMMARY | 2024-10-06 12:28 | XMS_ITS | Encounter Summary ---
Author Organization [facility] Address 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
--- OUTSIDE RECORDS SUMMARY | 2024-10-06 12:28 | XMS_ITS | Encounter Summary ---
Author Organization [facility] Address 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
--- OUTSIDE RECORDS SUMMARY | 2024-10-06 12:29 | XMS_ITS | Encounter Summary ---
Author Organization [facility] Address [address] [place] [address] Care Team Providers Care Final Inspector Name Role Phone Unavailable Primary Care Provider Unavailabl e Encounter Details Date Type Department Care Team (Late st Contact Info) Description 07/28/2018 Lab Requisition [facility] [address] [facility], [place] [address] Catalina Rueda MD [address] [facility] [address] [place] [address] Social History Tobacco Use Types Packs/Day Years Used Date Smoking Tobacco: Never Assessed Comments Unknown Sex and Gender Information Value Date Recorded Sex Assigned at Not on file Legal Sex Female 5:28 AM EXTRACORPOREAL TECHNICIAN Gender Identity Not on file Sexual Orientation Not on file documented as of this encounter Plan of Treatment Not on file documented as of this encounter Procedures Procedure Name Priority Date/Time Associated Diagnosis Comments DERMATOPATH TECHNICAL REPORT Routine 07/25/2018 12:00 AM EXTRACORPOREAL TECHNICIAN documented in this encounter Results * DERMATOPATH TECHNICAL REPORT (07/25/2018 12:00 AM EXTRACORPOREAL TECHNICIAN) Case Report Dermatopathology Report Case: [id number] Authorizing Provider: Catalina Rueda MD Collected: 07/25/2018 12:00 AM Pathologist: Urbano Mac MD Received: 07/28/2018 07:05 AM Specimen: Skin, right post ear 9 6:14 PM EXTRACORPOREAL TECHNICIAN DERMATOPATHOLOGY LABORATORY Addendum 1 At the request of the diagnosing physician, the technical component for CD3, CD20 and CD68 was performed by [facility] Dermatopathology Laboratory. 9 6:14 PM EXTRACORPOREAL TECHNICIAN DERMATOPATHOLOGY LABORATORY Addendum electronically signed by Urbano Mac MD on 07/31/2018 at 6:14 PM Clinical History BCC. Non-healing. Check margins. 9 6:14 PM [facility] DERMATOPATHOLOGY LABORATORY Gross Description Specimen A: Received is one formalin filled container labeled with the patient's name and designated right post ear. The specimen consists of a shave measuring [id number]. Jar 0. [facility] Dermatopathology Laboratory performed the technical component only. 9 6:14 PM [facility] DERMATOPATHOLOGY LABORATORY Embedded Images 6:14 PM [facility] DERMATOPATHOLOGY LABORATORY DISCLAIMER An external and internal positive and negative controls are appropriate for the histochemical, immunohistochemical and immunofluorescence stain(s) in this case (if any), except where stated explicitly. The performance characteristics of the stain(s) cited in this report were developed and its performance characteristic determined by the Dermatopathology Laboratory at [facility], directed by Dr. Rima Mac. These tests need not be, and therefore are not, approved by the [place] Food and Drug Administration. The tests are used for clinical purposes. 9 6:14 PM [facility] DERMATOPATHOLOGY LABORATORY Pathology/Cytolog y TISSUE SPECIMEN FROM SKIN / Unknown 07/25/2018 07/28/2018 7:05 AM EXTRACORPOREAL TECHNICIAN Catalina Rueda MD LAB - PATHOLOGY/CYTOLOGY OR DERABLES Edited Result - Final DERMATOPATHOLOGY LABORATORY [facility] - Department of Dermatology [address] [place] [address] 5th [place] [address], [facility] [phone] documented in this encounter Visit Diagnoses Not on filedocumented in this encounter
--- OUTSIDE RECORDS SUMMARY | 2024-10-06 12:29 | XMS_ITS | Encounter Summary ---
Author Organization [facility] Address [address] [place] [address] Care Team Providers Care Target Aircraft Technician Name Role Phone Nava Mckeon MD Primary Care Prov ider Unavailable Encounter Details Date Type Department Care Team (Late st Contact Info) Description 11/07/2001 Outpatient Historical [facility] Internal Medicine [place] [address] [place] [address] Ruben De La O MD [address] [place] [address] Social History Tobacco Use Types Packs/Day Years Used Date Smoking Tobacco: Never Assessed Comments Unknown Sex and Gender Information Value Date Recorded Sex Assigned at Not on file Legal Sex Female 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
--- OUTSIDE RECORDS SUMMARY | 2024-10-06 12:29 | XMS_ITS | Encounter Summary ---
Author Organization [facility] Address [address] [place] [address] Care Team Providers Care Sql Consultant Name Role Phone Nava Mckeon MD Primary Care Prov ider Unavailable Encounter Details Date Type Department Care Team (Late st Contact Info) Description 12/11/2002 Outpatient Historical [facility] Internal Medicine [place] [address] [place] [address] Ruben De La O MD [address] [place] [address] Social History Tobacco Use Types Packs/Day Years Used Date Smoking Tobacco: Never Assessed Comments Unknown Sex and Gender Information Value Date Recorded Sex Assigned at Not on file Legal Sex Female 4:46 AM IMAGING SPECIALIST Gender Identity Not on file Sexual Orientation Not on file documented as of this encounter Plan of Treatment Not on file documented as of this encounter Visit Diagnoses Not on filedocumented in this encounter Care Teams Sql Consultant Relationship Specialty Start Date End Date Nava Mckeon MD PCP - General 11/10/08 06/24/11 documented as of this encounter
--- OUTSIDE RECORDS SUMMARY | 2024-10-06 12:29 | XMS_ITS | Encounter Summary ---
Author Organization [facility] Address [address] [place] [address] Care Team Providers Care Go Go Dancer Name Role Phone Nava Mckeon MD Primary Care Prov ider Unavailable Encounter Details Date Type Department Care Team (Late st Contact Info) Description 10/12/2003 Outpatient Historical [facility] Internal Medicine [place] [address] [place] [address] Ruben De La O MD [address] [place] [address] Social History Tobacco Use Types Packs/Day Years Used Date Smoking Tobacco: Never Assessed Comments Unknown Sex and Gender Information Value Date Recorded Sex Assigned at Not on file Legal Sex Female 4:46 AM QUILTER FIXER Gender Identity Not on file Sexual Orientation Not on file documented as of this encounter Plan of Treatment Not on file documented as of this encounter Visit Diagnoses Not on filedocumented in this encounter Care Teams Go Go Dancer Relationship Specialty Start Date End Date Nvaa Mckeon MD PCP - General 11/10/08 06/24/11 documented as of this encounter
--- OUTSIDE RECORDS SUMMARY | 2024-10-06 12:29 | XMS_ITS | Encounter Summary ---
Author Organization [facility] Address [address] [place] [address] Care Team Providers Care Choir Leader Name Role Phone Nava Mckeon MD Primary Care Prov ider Unavailable Encounter Details Date Type Department Care Team (Late st Contact Info) Description 04/20/2005 Outpatient Historical [facility] Internal Medicine [place] [address] [place] [address] Ruben De La O MD [address] [place] [address] Social History Tobacco Use Types Packs/Day Years Used Date Smoking Tobacco: Never Assessed Comments Unknown Sex and Gender Information Value Date Recorded Sex Assigned at Not on file Legal Sex Female 4:46 AM LARD MIXER Gender Identity Not on file Sexual Orientation Not on file documented as of this encounter Plan of Treatment Not on file documented as of this encounter Visit Diagnoses Not on filedocumented in this encounter Care Teams Choir Leader Relationship Specialty Start Date End Date Nava Mckeon MD PCP - General 11/10/08 06/24/11 documented as of this encounter
--- OUTSIDE RECORDS SUMMARY | 2024-10-06 12:29 | XMS_ITS | Encounter Summary ---
Author Organization [facility] Address [address] [place] [address] Care Team Providers Care Furnace Attendant Name Role Phone Nava Mckeon MD Primary Care Prov ider Unavailable Encounter Details Date Type Department Care Team (Late st Contact Info) Description 09/17/2002 Outpatient Historical [facility] Internal Medicine [place] [address] [place] [address] Ruben De La O MD [address] [place] [address] Social History Tobacco Use Types Packs/Day Years Used Date Smoking Tobacco: Never Assessed Comments Unknown Sex and Gender Information Value Date Recorded Sex Assigned at Not on file Legal Sex Female 4:46 AM CONTINUITY MANAGER Gender Identity Not on file Sexual Orientation Not on file documented as of this encounter Plan of Treatment Not on file documented as of this encounter Visit Diagnoses Not on filedocumented in this encounter Care Teams Furnace Attendant Relationship Specialty Start Date End Date Nava Mckeon MD PCP - General 11/10/08 06/24/11 documented as of this encounter
--- OUTSIDE RECORDS SUMMARY | 2024-10-06 12:29 | XMS_ITS | Clinical Summary ---
Author Organization [facility] Address [address] [place] [address] Care Team Providers Care Circuit Manager Name Role Phone Unavailable Primary Care Provider [...] 1 Tab by mouth daily. Active Calcium Czsn-T4-Uimwkeaf m jostin (CORAL CALCIUM) 133 mg(calcium) -133 [...] Provider: Kirsten Zazueta MD [address] [facility] [address] [place] [address] Other: Problem Noted Date Diagnosed Date Chronic [...] on file Legal Sex Female 4:46 AM VEST MAKER Gender Identity Not on file Sexual Orientation Not on file Occupation Industry Job Start Date Job End Date Not on file Not on file Not on file Not on file Last Filed Vital Signs Vital Sign Reading Time Taken Comments Blood Pressure 110/60 12/24/2011 2:18 PM CDT Pulse 72 12/22/2009 8:07 AM CDT Temperature 37.2 C (99 F) 12/22/2009 8:07 AM CDT Respiratory Rate 20 [...] of 3 - 19+ 3-dose series) 1998 HPV/Cotest (21-29) 2000 HPV/Cotest (30-65) 2009 CERVICAL CANCER SCREENING 09/15/2012 PAP SMEAR 09/15/2012 09/15/2009, 09/15/2008, 10/01/2007 DTAP/TDAP/TD VACCINES (2 - T d or Tdap) 11/19/2017 11/20/2007 BREAST CANCER SCREENING 2019 06/30/19 11, 09/20/2009, 09/08/2009 INFLUENZA VACCINE (#1) 2024 3, 04/25/2010 COLORECTAL SCREENING 2024 Colorectal Cancer Screening 2024 FIT-DNA Q 3 years 2024 FIT/FOBT Q 1 year 2024 Flex Sig/CT Colonography Q 5 years 2024 HPV VACCINES Aged Out No longer eligi [...]
--- OUTSIDE RECORDS SUMMARY | 2024-10-06 12:29 | XMS_ITS | Encounter Summary ---
Author Organization [facility] Address [address] [place] [address] Care Team Providers Care Burn Center Nurse Name Role Phone Nava Mckeon MD Primary Care Prov ider Unavailable Encounter Details Date Type Department Care Team (Late st Contact Info) Description 12/30/2003 Outpatient Historical [facility] Internal Medicine [place] [address] [place] [address] Ruben De La O MD [address] [place] [address] Social History Tobacco Use Types Packs/Day Years Used Date Smoking Tobacco: Never Assessed Comments Unknown Sex and Gender Information Value Date Recorded Sex Assigned at Not on file Legal Sex Female 4:46 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
--- OUTSIDE RECORDS SUMMARY | 2024-10-06 12:29 | XMS_ITS | Encounter Summary ---
Author Organization [facility] Address [address] [place] [address] Care Team Providers Care Advanced Seal Delivery System Name Role Phone Nava Mckeon MD Primary Care Prov ider Unavailable Encounter Details Date Type Department Care Team (Late st Contact Info) Description 12/22/2001 Outpatient Historical [facility] Internal Medicine [place] [address] [place] [address] Ruben De La O MD [address] [place] [address] Social History Tobacco Use Types Packs/Day Years Used Date Smoking Tobacco: Never Assessed Comments Unknown Sex and Gender Information Value Date Recorded Sex Assigned at Not on file Legal Sex Female 4:46 AM PVC LOADER Gender Identity Not on file Sexual Orientation Not on file documented as of this encounter Plan of Treatment Not on file documented as of this encounter Visit Diagnoses Not on filedocumented in this encounter Care Teams Advanced Seal Delivery System Relationship Specialty Start Date End Date Nava Mckeon MD PCP - General 11/10/08 06/24/11 documented as of this encounter
--- OUTSIDE RECORDS SUMMARY | 2024-10-06 12:29 | XMS_ITS | Encounter Summary ---
Author Organization [facility] Address [address] [place] [address] Care Team Providers Care Convenience Store Clerk Name Role Phone Nava Mckeon MD Primary Care Prov ider Unavailable Encounter Details Date Type Department Care Team (Late st Contact Info) Description 01/03/2004 Outpatient Historical [facility] Internal Medicine [place] [address] [place] [address] Ruben De La O MD [address] [place] [address] Social History Tobacco Use Types Packs/Day Years Used Date Smoking Tobacco: Never Assessed Comments Unknown Sex and Gender Information Value Date Recorded Sex Assigned at Not on file Legal Sex Female 4:46 AM CHICKEN SEXER Gender Identity Not on file Sexual Orientation Not on file documented as of this encounter Plan of Treatment Not on file documented as of this encounter Visit Diagnoses Not on filedocumented in this encounter Care Teams Convenience Store Clerk Relationship Specialty Start Date End Date Nava Mckeon MD PCP - General 11/10/08 06/24/11 documented as of this encounter
--- OUTSIDE RECORDS SUMMARY | 2024-10-06 12:29 | XMS_ITS | Clinical Summary ---
Author Organization [facility] Address [address] [place] [address] Care Team Providers Care Security Guard Name Role Phone Unavailable Primary Care Provider Unavailabl e Source Comments [facility],non-owned Affiliates and Associated Physician Practices is amultiple site organization consisting of ambulatory clinics and hospital sitesin [place], [place], [place] and [place]. This disclosure is being madepursuant to the Care Everywhere program and may not contain all information available regarding this patient. 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 CUTTER Gender Identity Not on file Sexual Orientation Not on file Plan of Treatment Health Maintenance Due Date Last Done Comments COLOGUARD (AGES 45-75) - COL ON CA SCREENING 1979 COLON MONITORING 1979 COLONOSCOPY - COLON CA SCREENING 1979 CT COLONOGRAPHY - COLON CA SCREENING 1979 Colorectal Cancer Screening 1979 FIT - COLON CA SCREENING 1979 FLEX SIG - COLON CA SCREENING 1979 LIPID TESTING 1979 MAMMOGRAM 1979 HIV SCREENING 1994 HEPATITIS C SCREENING 08/09/1997 DTAP/TDAP/TD VACCINES (1 - Tdap) 1998 HEPATITIS B VACCINE (1 of 3 - 19+ 3-dose series) 1998 COVID-19 VACCINE ( - 2023-2 5 season) 2024 DEPRESSION SCREENING 06/17/2024 INFLUENZA VACCINE (Season Ended) 2025 ZOSTER VACCINE (1 of 2) 2029 HIB VACCINE Aged Out No longer eligi ble based on patient's age to complete this topic HPV VACCINE Aged Out No longer eligi ble based on patient's age to complete this topic MENINGOCOCCAL (Group B) VACC INE SHARED DECISION-MAKING Aged Out No longer eligibl e based on patient's age to complete this topic MENINGOCOCCAL GROUPS A/C/Y/W VACCINE Aged Out No longer eligible b ased on patient's age to complete this topic PNEUMOCOCCAL VACCINE Aged Out No long er eligible based on patient's age to complete this topic Insurance [employer]
--- OUTSIDE RECORDS SUMMARY | 2024-10-06 12:29 | XMS_ITS | Encounter Summary ---
Author Organization [facility] Address [address] [place] [address] Care Team Providers Care Clinical Quality Analyst Name Role Phone Nava Mckeon MD Primary [...] on file Legal Sex Female 4:46 AM CABLE SPLICER Gender Identity Not on file Sexual Orientation Not on file documented as of this encounter Plan of Treatment Not on file documented as of this encounter Visit Diagnoses Diagnosis Pilonidal cyst with abscess- Primary documented in this encounter Care Teams Clinical Quality Analyst Relationship Specialty Start Date End Date Nava Mckeon MD PCP - General 11/10/08 06/24/11 documented as of this encounter
--- OUTSIDE RECORDS SUMMARY | 2024-10-06 12:29 | XMS_ITS | Encounter Summary ---
Author Organization [facility] Address [address] [place] [address] Care Team Providers Care Trumpet Teacher Name Role Phone Nava Mckeon MD Primary Care Prov ider Unavailable Encounter Details Date Type Department Care Team (Late st Contact Info) Description 03/27/2004 Outpatient Historical [facility] Internal Medicine [place] [address] [place] [address] Ruben De La O MD [address] [place] [address] Social History Tobacco Use Types Packs/Day Years Used Date Smoking Tobacco: Never Assessed Comments Unknown Sex and Gender Information Value Date Recorded Sex Assigned at Not on file Legal Sex Female 4:46 AM AIR ANALYST Gender Identity Not on file Sexual Orientation Not on file documented as of this encounter Plan of Treatment Not on file documented as of this encounter Visit Diagnoses Not on filedocumented in this encounter Care Teams Trumpet Teacher Relationship Specialty Start Date End Date Nava Mckeon MD PCP - General 11/10/08 06/24/11 documented as of this encounter
== END 2024-10-06 10:48 | disposition home or self-care (01) ==
LOC: ANHNEURO 10:48
PROVIDERS: PCP Nurse Practitioner Family; Visit Provider Plastic Surgery
DX: G56.22 Lesion of ulnar nerve, left upper limb (principal)
CPT/HCPCS: 95886; 95909

== ENCOUNTER 2024-12-17 05:59 | Day surgery (SDC) | payer OTHER, SELFPAY ==
--- OUTSIDE RECORDS SUMMARY | 2024-12-17 06:27 | XMS_ITS | Clinical Summary ---
Author Organization [facility] Address [address] [place] [address] Care Team Providers Care Car Mechanic Helper Name Role Phone Unavailable Primary Care Provider Unavailabl e Source Comments [facility] [employer],non-owned Affiliates and Associated Physician Practices is amultiple site organization consisting of ambulatory clinics and hospital sitesin [place], [place] and [place]. This disclosure is being madepursuant to the Care Everywhere program and may not contain all information available regarding this patient. Last updated 18.[facility] [employer] Social History Tobacco Use Types Packs/Day Years Used Date Smoking Tobacco: Never Assessed Comments Unknown Sex and Gender Information Value Date Recorded Sex Assigned at Not on file Legal Sex Female 5:28 AM MANAGER ADOBE Gender Identity Not on file Sexual Orientation [...]
--- OUTSIDE RECORDS SUMMARY | 2024-12-17 06:27 | XMS_ITS | Encounter Summary ---
Author Organization [facility] Address [address] [place] [address] Care Team Providers Care Patient Navigator Name Role Phone Nava Mckeon MD Primary Care Prov ider Unavailable Encounter Details Date Type Department Care Team (Late st Contact Info) Description 10/04/2006 Outpatient Historical [facility] Internal Medicine [place] [address] [place] [address] Ruben De La O MD [address] [place] [address] Social History Tobacco Use Types Packs/Day Years Used Date Smoking Tobacco: Never Assessed Comments Unknown Sex and Gender Information Value Date Recorded Sex Assigned at Not on file Legal Sex Female 4:46 AM ORACLE IDENTITY MANAGEMENT CONSULTANT Gender Identity Not on file Sexual Orientation Not on file documented as of this encounter Plan of Treatment Not on file documented as of this encounter Visit Diagnoses Not on filedocumented in this encounter Care Teams Patient Navigator Relationship Specialty Start Date End Date Nava Mckeon MD PCP - General 11/10/08 06/24/11 documented as of this encounter
--- OUTSIDE RECORDS SUMMARY | 2024-12-17 06:27 | XMS_ITS | Clinical Summary ---
Author Organization [facility] Address [address] [place] [address] Care Team Providers Care Business Analyst Manager Name Role Phone Kobe Lyons NP Primary Care Provider [phone] Allergies Active Allergy Reactions Criticality Noted Date [...] Take by intrauterine route. Active vit D3-vit X-cpddlhsgl-xfh s [id number] buzr-wqm-fo-mg tablet Take by mouth Active pregabalin (LYRICA) [...] (11/21/2018): Added automatically from request for surgery [id number] Acne 10/22/2014 Overview (09/20/2016): Acne Immunizations Immunization [...] Friends and Family Patient declined 01/14/2019 Attends Religion Services Patient declined 12/17 Active Member of [...] Paying Living Expenses Patient dec lined 01/14/2019 [facility] - Occupational Stress [...] on file Legal Sex Female 2:09 AM SHEET TAILER Gender Identity Female 02/16/2020 7:54 PM CDT [...] 1:22 PM CDT Height 160 cm (5' 3) 02/17/2021 1:22 PM CDT Body Mass Index [...] 02/17/2020, 02/13/2019, Additional history exists Influenza Vaccine (Season Ended) 2025 03/23/2021, 03/28/2018, 03/25/2017, Additional history exists Breast Cancer Screening-Mammogram 04/09/2025 04/09/2024, 02/28/2023, 02/20/2022, Additional history exists DTaP/Tdap/Td Vaccine (3 - Td or Tdap) 10/15/2027 10/14/2017, 11/20/2007 HPV Vaccines Aged Out No longer eligi ble based on patient's age to complete this topic Pneumococcal vaccine <65 Aged Out No longer eligible based on patient's age to complete this topic Medical Devices Implanted Type Area Urgent Care Nurse Practitioner Device Identifier Shelf Expiration Date Model / Serial / Lot Trimed 3 Hole Bearing - Left Implanted:Qty: 1 on 11/27/2018 by Ro Mcdowell MD at [facility] Plate Left: [employer] Description:Ref#[id number] [employer] Trx2.3-18 2.3mm 18mm Ankle Cortical Screw Bone - [id number] Implanted:Qty: 2 on 11/27/2018 by Ro Mcdowell MD at [facility] Left: [employer] TRX2.3-18 / / [employer] Tpeg-16 16mm Thread Lock Torx Wrist Volar Peg Fixation - [id number] Implanted:Qty: 3 on 11/27/2018 by Ro Mcdowell MD at [facility] Left: [employer] TPEG-16 / / [employer] Tpeg-18 18mm Thread Lock Torx Wrist Volar Peg Fixation - [id number] Implanted:Qty: 2 on 11/27/2018 by Ro Mcdowell MD at [facility] Left: [employer] TPEG-18 / / [employer] Hex3.2-10 3.2mm 10mm Hexagonal Cortical Screw Bone Ankle Fixation System - [id number] Implanted:Qty: 2 on 11/27/2018 by Ro Mcdowell MD at [facility] Left: [employer] HEX3.2-10 / / [employer] Hex 3212 3.2mm 12mm Hexagonal Cortical Screw Bone Ankle Fixation System - [id number] Implanted:Qty: 1 on 11/27/2018 by Ro Mcdowell MD at [facility] Left: [employer] HEX 3212 / / Explanted Type Area Urgent Care Nurse Practitioner Device Identifier Shelf Expiration Date Model / Serial / Lot Tr[employer] Trx2.3-18 2.3mm 18mm Ankle Cortical Screw Bone - [id number] Explanted:Qty: 1 on 11/27/[address] [facility] [employer] TRX2.3-18 / / [employer] Hex 3214 3.2mm 14mm Hexagonal Cortical Screw Bone Ankle Fixation System - [id number] Implanted:Qty: 1 Explanted:Qty: 1 on 11/27/[address] [facility] Left: [employer] HEX 3214 / [...] CDT 02/25/2021 12:12 PM CDT Narrative PATHOLOGY [facility] - 03/02/2021 10:19 AM CDT EPIC results best viewed via link to PDF [address] [address] Tele: Tiarra Grigsby MD - Office Aide CYTOLOGY REPORT Note to Patients: This report [...] the details. Patient Name: RONEY SEWELL Address: [address] [place] [address] Gender: F : 1980 (Age: 40) Service: Location: [facility] #: [id number] Patient Type: MBC SPECIMEN Taken: 02/17/2021 Reported: 03/02/2021 Physician(s): Kirsten Zazueta M.D. FINAL DIAGNOSIS: Specimen Type: - ThinPrep Pap w/ reflex HPV Statement of Specimen Adequacy: Source: Cervical/Endocervical - Satisfactory for interpretation - Endocervical /Transformation Zone component present - Case screened using computer assisted imaging technology General Categorization: - Negative for intraepithelial lesion or malignancy tgates/03/02/2021 10:19 GINGER Woflf (ASCP) Report Reviewed and Electronically Signed By [...] practitioner. Kirsten Zazueta MD LAB CYTOLOGY ORDERABLES [facility] al Result PATHOLOGY [facility] Laboratory Receiving [address] [place] [address] from Last 3 Months or Most Recently Relevant to Health Maintenance Insurance [facility] Advance Directives For more information, please contact: [phone] Documents on File Type Date Recorded Patient Bushing Press Operator Expl anation ADVANCE DIRECTIVE 12/03/2018 1:32 PM POWER OF DIRECTOR MARKETING COMMUNICATIONS-FINANCIAL/MEDICAL ADVANCE DIRECTIVE 11/28/2018 8:05 PM ADVANCE DIRECTIVE 11/27/2018 9:53 AM POWER OF DIRECTOR MARKETING COMMUNICATIONS-MEDICAL ADVANCE DIRECTIVE 11/27/2018 9:50 AM POWER OF DIRECTOR MARKETING COMMUNICATIONS-MEDICAL ADVANCE DIRECTIVE 01/21/2015 12:00 AM POWER OF DIRECTOR MARKETING COMMUNICATIONS FINANCIAL/MEDICAL Care Teams Business Analyst Manager Relationship Specialty Start Date End Date Kobe Lyons NP [address] [place] [address] PCP - General Family Medicine 01/22/24
--- OUTSIDE RECORDS SUMMARY | 2024-12-17 06:27 | XMS_ITS | Encounter Summary ---
Author Organization [facility] Address [address] [place] [address] Care Team Providers Care Associate Professor Of Kinesiology Name Role Phone Nava Mckeon MD Primary Care Prov ider Unavailable Encounter Details Date Type Department Care Team (Late st Contact Info) Description 09/24/2001 Outpatient Historical [facility] Internal Medicine [place] [address] [place] [address] Ruben De La O MD [address] [place] [address] Social History Tobacco Use Types Packs/Day Years Used Date Smoking Tobacco: Never Assessed Comments Unknown Sex and Gender Information Value Date Recorded Sex Assigned at Not on file Legal Sex Female 4:46 AM TRADE ANALYST Gender Identity Not on file Sexual Orientation Not on file documented as of this encounter Plan of Treatment Not on file documented as of this encounter Visit Diagnoses Not on filedocumented in this encounter Care Teams Associate Professor Of Kinesiology Relationship Specialty Start Date End Date Nava Mckeon MD PCP - General 11/10/08 06/24/11 documented as of this encounter
--- OUTSIDE RECORDS SUMMARY | 2024-12-17 06:27 | XMS_ITS | Encounter Summary ---
Author Organization [facility] Address 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
--- OUTSIDE RECORDS SUMMARY | 2024-12-17 06:27 | XMS_ITS | Encounter Summary ---
Author Organization [facility] Address [address] [place] [address] Care Team Providers Care Burial Vault Deliverer And Installer Name Role Phone Nava Mckeon MD Primary Care Prov ider Unavailable Encounter Details Date Type Department Care Team (Late st Contact Info) Description 09/17/2002 Outpatient Historical [facility] Internal Medicine [place] [address] [place] [address] Ruben De La O MD [address] [place] [address] Social History Tobacco Use Types Packs/Day Years Used Date Smoking Tobacco: Never Assessed Comments Unknown Sex and Gender Information Value Date Recorded Sex Assigned at Not on file 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
--- OUTSIDE RECORDS SUMMARY | 2024-12-17 06:27 | XMS_ITS | Encounter Summary ---
Author Organization [employer] Address 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
--- OUTSIDE RECORDS SUMMARY | 2024-12-17 06:27 | XMS_ITS | Encounter Summary ---
Author Organization [facility] Address 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
--- OUTSIDE RECORDS SUMMARY | 2024-12-17 06:27 | XMS_ITS | Clinical Summary ---
Author Organization [facility] Address [address] [place] [address] Care Team Providers Care Rag Production Worker Name Role Phone Unavailable Primary Care Provider [...] 1 Tab by mouth daily. 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
--- OUTSIDE RECORDS SUMMARY | 2024-12-17 06:27 | XMS_ITS | Encounter Summary ---
Author Organization [facility] Address 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
--- OUTSIDE RECORDS SUMMARY | 2024-12-17 06:27 | XMS_ITS | Encounter Summary ---
Author Organization [facility] Address 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
--- OUTSIDE RECORDS SUMMARY | 2024-12-17 06:27 | XMS_ITS | Encounter Summary ---
Author Organization [facility] Address 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
--- OUTSIDE RECORDS SUMMARY | 2024-12-17 06:27 | XMS_ITS | Data Portability ---
Author Organization [place] - [facility] [employer], Main Office Address [address] [place] [address] Assessment No assessment recorded. Plan of Treatment Reminders Order Date Submit Date Provider Last Modified By Organization Details Last Modified Time Details Appointments None recorded. Lab lipid panel, serum [email or web address] [facility], [address], [address], [place], [address], 5 08:08:00 CBC w/ auto diff [email or web address] [facility], [address], [address], [place], [address], 5 08:08:00 CMP, serum or plasma [address]24 [email or web address] [facility], [address], [address], [place], [address], 5 08:08:00 vitamin D, 1,25-dihydr oxy, serum 2024 025 [email or web address] 7 [facility], [address], [address], [place], [address], 5 08:08:00 TSH, serum or plasma 2024 [email or web address] [facility], [address], [address], [place], [address], 5 08:08:00 HbA1c (hemoglobin A1c), blood 2024 025 [email or web address] 477 [facility], [address], [address], [place], [address], 5 08:08:00 urinalysis, dipstick 2023 024 [email or web address] [facility], [address] [facility] [address], [place], [address], 4 16:36:56 urinalysis, dipstick 2023 024 YELENA [facility] [address], [place], [address], 4 09:41:20 urinalysis complete, reflex culture 2023 024 [email or web address] [facility] ([facility]), [address] [facility], [place], [address], 4 09:40:41 pap, IG + HR HPV 2022 023 [email or web address] 477 Not available 3 07:55:44 Referral gastroenter ologist referral - Please call patient to schedule an appointment . Thank you. 2024 025 [email or web address] Aydin Martino MD, [address] [place], [address], 5 09:12:51 hand surgeon referral - Please call patient to schedule an appointment . Thank you. 2024 025 [email or web address] Chad Youssef MD, [address] [facility] [address], [address], [place], [address], 5 09:11:26 urologist referral - Please call patient to schedule an appointment . Thank you. 2023 024 [email or web address] 5 Rock Womack, [address] [facility], [address], [place], [address], 4 10:12:16 Procedures None recorded. Surgeries None recorded. Imaging XR, lumbar spine - Please call pt to schedule 2024 025 [email or web address] [facility], [address], [place], [address], 5 09:36:12 XR, wrist, 3 or more view - Please call pt to schedule 2023 024 [facility], [address], [facility] [address], [place], [address], 4 12:09:55 Medication Orders pregabalin 75 mg capsule 2024 025 [id number], [address], [place], [place], [id number], 5 09:07:37 Patient TargetsNo targets recorded. Patient Instructions Encounter Date Encounter Id Patient Instructions Last Modified By Organization Details Last Modified Time 02/21/2024 [id number] 1. I honestly do not think there is anything that I need to do at this standpoint 2. If she has pressure in the bladder area and just use azo as needed 3. I think this will resolve itself without any treatment I just gave her reassurance [email or web address] Not available 02/21/2024 16:56:21 Reason for Referral Urologist Referral for Delay when starting to pass urine feelings of UTI without clinical evidence, low abd pressure, trouble initiating, occ burning Please call patient to schedule an appointment. Thank you. Referring Physician: Kobe Lyons, Family Medicine, Encounter Date: 01/09/2024 Hand Surgeon Referral for Bi lateral carpal tunnel syndrome Please call patient to schedule an appointment. Thank you. Referring Physician: Rachel Griffin Family [facility], Encounter Date: 07/06/2024 [employer] Referral for Screening colonoscopy Please call patient to schedule an appointment. Thank you. Referring Physician: Rachel Griffin, Family Medicine, Encounter Date: 07/06/2024 Results Created Date Observation Date Name Description Value Unit Range Abnormal Flag Note LastModifiedBy Organization Detail LastModifiedTime 05/14/20 23 05/16/2023 IGP, APTIM A HPV HPV aptima Negati ve negati ve This nucle ic acid ampli ficat ion test detec ts fourt een high- risk HPV types (16,1 8,31, 33,35 ,39,4 5,51, 52,56 ,58,5 9,66, 68) witho ut diffe renti ation . Not Available Not Available 05/20/2023 10:39:41 05/14/20 23 05/17/2023 IGP, APTIM A HPV diagnosis: Aj stahl NEGAT WIL FOR INTRA EPITH ELIAL LESIO N OR STEW LANDON . Not Available Not Available 05/20/2023 10:39:41 05/14/20 23 05/17/2023 IGP, APTIM A HPV specimen adequacy: Aj stahl Satis facto ry for evalu ation . No endoc ervic al compo nent is ident ified . Not Available Not Available 05/20/2023 10:39:41 05/14/20 23 05/17/2023 IGP, APTIM A HPV performed by: Aj Garcia th, Cytot echnichol boo t (ASCP ) Not Available Not Available 05/20/2023 10:39:41 05/14/20 23 05/17/2023 IGP, APTIM A HPV . . Not Available Not Availa ble 05/20/2023 10:39:41 05/14/20 23 05/17/2023 IGP, APTIM A HPV note: Commen t The Pap smear is a scree naldo test desig isaac to aid in the detec tion of shelli ligna nt and malig nant condi tions of the uteri ne cervi x. It is not a diagn ostic proce dure and shoul d not be used as the sole means of detec ting cervi krystal cance r. Both false -posi tive and false -nega tive repor ts do occur . Not Available Not Available 05/20/2023 10:39:41 05/14/20 23 05/17/2023 IGP, APTIM A HPV test methodology: Jorgeen t This liqui d based ThinP rep(R ) pap test was quinn gray with the use of an image guide olivia fernandez Not Available Not Available 05/20/2023 10:39:41 01/09/2001/10/2024 UA/M W/RFL X CULTU RE ROUTCharmaine NE specific gravity 1.005 1.005- 1.030 normal Not Available [facility] ([facility]) [address] [place], [address], 01/10/2024 06:20:03 01/09/20 24 01/10/2024 UA/M W/RFL X CULTU RE ROUTCharmaine NE pH 6.5 5.0-7. 5 normal Not Available [facility] ([facility]) [address] [place], [address], 01/10/2024 06:20:03 01/09/20 24 01/10/2024 UA/M W/RFL X CULTU RE ROUTCharmaine NE urine-color YELLOW yellow Not Available [facility] ([facility]) [address] [facility], [place], [address], 01/10/2024 06:20:03 01/09/20 24 01/10/2024 UA/M W/RFL X CULTXander RE ROUTCharmaine NE appearance CLEAR clear Not Available [facility] ([facility]) [address] [place], [address], 01/10/2024 06:20:03 01/09/20 24 01/10/2024 UA/M W/RFL X CULTU RE ROUTCharmaine NE WBC esterase NEGATI VE negati ve Not Available [facility] ([facility]) [address] [place], [address], 01/10/2024 06:20:03 01/09/20 24 01/10/2024 UA/M W/RFL X CULTU RE, ROUTI NE protein NEGATI VE negati ve/tra ce Not Available [facility] ([facility]) [address] [place], [address], 01/10/2024 06:20:03 01/09/20 24 01/10/2024 UA/M W/RFL X CULTU RE, ROUTI NE glucose NEGATI VE negati ve Not Available [facility] ([facility]) [address] [place], [address], 01/10/2024 06:20:03 01/09/2001/10/2024 UA/M W/RFL X CULTU RE, ROUTI NE ketones NEGATI VE negati ve Not Available [facility] ([facility]) [address] [facility], [place], [address], 01/10/2024 06:20:03 01/09/20 24 01/10/2024 UA/M W/RFL X CULTU RE, ROUTI NE occult blood NEGATI VE negati ve Not Available [facility] ([facility]) [address] [place], [address], 01/10/2024 06:20:03 01/09/20 24 01/10/2024 UA/M W/RFL X CULTU RE, ROUTI NE bilirubin NEGATI VE negati ve Not Available [facility] ([facility]) [address] [place], [address], 01/10/2024 06:20:03 01/09/20 24 01/10/2024 UA/M W/RFL X CULTU RE, ROUTI NE urobilinogen ,semi-qn 0.2 mg/dL 0.2-1. 0 normal Not Available [facility] ([facility]) [address] [place], [address], 01/10/2024 06:20:03 01/09/20 24 01/10/2024 UA/M W/RFL X CULTU RE, ROUTI NE nitrite, urine NEGATI VE negati ve Not Available [facility] ([facility]) [address] [facility], [place], [address], 01/10/2024 06:20:03 01/09/20 24 01/10/2024 UA/M W/RFL X CULTU RE, ROUTI NE microscopic examination COMMEN T Micro scopi c follo ws if indic ated. Not Available [facility] ([facility]) [address] [facility], [place], [address], 01/10/2024 06:20:03 01/09/20 24 01/10/2024 UA/M W/RFL X CULTU RE, ROUTI NE microscopic examination SEE BELOW: Micro scopi c was indic ated and was perfo rmed. Not Available [facility] ([facility]) [address] [facility], [place], [address], 01/10/2024 06:20:03 01/09/20 24 01/10/2024 UA/M W/RFL X CULTU RE, ROUTI NE WBC NONE SEEN /hpf 0 - 5 Not Available [facility] ([facility]) [address] [facility], [place], [address], 01/10/2024 06:20:03 01/09/20 24 01/10/2024 UA/M W/RFL X CULTU RE, ROUTI NE RBC NONE SEEN /hpf 0 - 2 Not Available [facility] ([facility]) [address] [facility], [place], [address], 01/10/2024 06:20:03 01/09/20 24 01/10/2024 UA/M W/RFL X CULTU RE, ROUTI NE epithelial cells (non renal) 0-10 /hpf 0 - 10 Not Available [facility] ([facility]) [address] [facility], [place], [address], 01/10/2024 06:20:03 01/09/20 24 01/10/2024 UA/M W/RFL X CULTU RE, ROUTI NE epithelial cells (renal) COMPOUNDER FLAVORINGS Not Available [facility] ([facility]) [address] [facility], [place], [address], 01/10/2024 06:20:03 01/09/20 24 01/10/2024 UA/M W/RFL X CULTU RE, ROUTI NE casts NONE SEEN /lpf none seen Not Available [facility] ([facility]) [address] [facility], [place], [address], 01/10/2024 06:20:03 01/09/20 24 01/10/2024 UA/M W/RFL X CULTU RE, ROUTI NE cast type COMPOUNDER FLAVORINGS Not Available [facility] ([facility]) [address] [place], [address], 01/10/2024 06:20:03 01/09/20 24 01/10/2024 UA/M W/RFL X CULTU RE, ROUTI NE crystals COMPOUNDER FLAVORINGS Not Available [facility] ([facility]) [address] [place], [address], 01/10/2024 06:20:03 01/09/20 24 01/10/2024 UA/M W/RFL X CULTU RE, ROUTI NE crystal type COMPOUNDER FLAVORINGS Not Available [facility] ([facility]) [address] [place], [address], 01/10/2024 06:20:03 01/09/20 24 01/10/2024 UA/M W/RFL X CULTU RE, ROUTI NE mucus threads COMPOUNDER FLAVORINGS Not Available [facility] ([facility]) [address] [place], [address], 01/10/2024 06:20:03 01/09/20 24 01/10/2024 UA/M W/RFL X CULTU RE, ROUTI NE bacteria NONE SEEN none seen/f ew Not Available [facility] ([facility]) [address] [place], [address], 01/10/2024 06:20:03 01/09/20 24 01/10/2024 UA/M W/RFL X CULTU RE, ROUTI NE yeast COMPOUNDER FLAVORINGS Not Available [facility] ([facility]) [address] [facility], [place], [address], 01/10/2024 06:20:03 01/09/20 24 01/10/2024 UA/M W/RFL X CULTU RE, ROUTI NE trichomonas COMPOUNDER FLAVORINGS Not Available [facility] ([facility]) [address] [facility], [place], [address], 01/10/2024 06:20:03 01/09/20 24 01/10/2024 UA/M W/RFL X CULTU RE, ROUTI NE comment COMPOUNDER FLAVORINGS Not Available [facility] ([facility]) [address] [facility], [place], [address], 01/10/2024 06:20:03 01/09/20 24 01/10/2024 UA/M W/RFL X CULTU RE, ROUTI NE urinalysis reflex COMMEN T This speci men will not refle x to a Urine Cultu re. Not Available [facility] ([facility]) [address] [facility], [place], [address], 01/10/2024 06:20:03 01/09/20 24 01/09/2024 urina lysis , dipst ick Leukocytes (reference range: negative chato/ l) Negati ve Not Available [facility] [address], [place], [address], 01/09/2024 09:11:38 01/09/20 24 01/09/2024 urina lysis , dipst ick Nitrite (reference rage: negative mg/dl) negati ve Not Available [facility] [address], [place], [address], 01/09/2024 09:11:38 01/09/20 24 01/09/2024 urina lysis , dipst ick Urobilinogen (reference range: 0.2-1 mg/dl) 0.2 Not Available [address], [place], [address], 01/09/2024 09:11:38 01/09/2001/09/2024 urina lysis , dipst ick Protein (reference range: negative mg/dl) Negati ve Not Available [address], [place], [address], 01/09/2024 09:11:38 01/09/2001/09/2024 urina lysis , dipst ick pH (reference range: 5-7) 6.5 Not Available [address], [place], [address], 01/09/2024 09:11:38 01/09/2001/09/2024 urina lysis , dipst ick Blood (reference range: negative Tuan/ l) Negati ve Not Available [address], [place], [address], 01/09/2024 09:11:38 01/09/2001/09/2024 urina lysis , dipst ick Specific [place] (reference range: 1.005-1.030) 1.030 Not Available [address], [place], [address], 01/09/2024 09:11:38 01/09/20 24 01/09/2024 urina lysis , dipst ick Ketone (reference range: negative mg/dl) Negati ve Not Available [address], [place], [address], 01/09/2024 09:11:38 01/09/20 24 01/09/2024 urina lysis , dipst ick Bilirubin (reference range: negative mg/dl) Negati ve Not Available [address], [place], [address], 01/09/2024 09:11:38 01/09/20 24 01/09/2024 urina lysis , dipst ick Glucose (reference range: negative mg/dl) Negati ve Not Available [address], [place], [address], 01/09/2024 09:11:38 01/09/20 24 01/09/2024 urina lysis , dipst ick Appearance Clear Not Available [address], [place], [address], 01/09/2024 09:11:38 01/09/20 24 01/09/2024 urina lysis , dipst ick Color Pale Yellow Not Available [address], [place], [address], 01/09/2024 09:11:38 02/21/20 24 02/21/2024 urina lysis , dipst ick Leukocytes (reference range: negative chato/ l) Negati ve Not Available [facility] [address], [place], [address], 02/21/2024 16:29:15 02/21/20 24 02/21/2024 urina lysis , dipst ick Nitrite (reference rage: negative mg/dl) negati ve Not Available [facility] [address], [place], [address], 02/21/2024 16:29:15 02/21/20 24 02/21/2024 urina lysis , dipst ick Urobilinogen (reference range: 0.2-1 mg/dl) 0.2 Not Available [facility] [address] [place] [address] [address], [place], [address], 02/21/2024 16:29:15 02/21/20 24 02/21/2024 urina lysis , dipst ick Protein (reference range: negative mg/dl) Trace Not Available [facility] [address] [place] [address] [address], [place], [address], 02/21/2024 16:29:15 02/21/20 24 02/21/2024 urina lysis , dipst ick pH (reference range: 5-7) 8.0 Not Available [facility] [address] [place] [address] [address], [place], [address], 02/21/2024 16:29:15 02/21/20 24 02/21/2024 urina lysis , dipst ick Blood (reference range: negative Tuan/ l) Negati ve Not Available [facility] [address] [place] [address] [address], [place], [address], 02/21/2024 16:29:15 02/21/20 24 02/21/2024 urina lysis , dipst ick Specific [place] (reference range: 1.005-1.030) 1.020 Not Available s _[facility] [address] [place] [address] [address], [place], [address], 02/21/2024 16:29:15 02/21/20 24 02/21/2024 urina lysis , dipst ick Ketone (reference range: negative mg/dl) Negati ve Not Available [facility] [address], [place], [address], 02/21/2024 16:29:15 02/21/20 24 02/21/2024 urina lysis , dipst ick Bilirubin (reference range: negative mg/dl) Negati ve Not Available [facility] [address], [place], [address], 02/21/2024 16:29:15 02/21/20 24 02/21/2024 urina lysis , dipst ick Glucose (reference range: negative mg/dl) Negati ve Not Available [facility] [address], [place], [address], 02/21/2024 16:29:15 02/21/20 24 02/21/2024 urina lysis , dipst ick Appearance Clear Not Available [facility] [address] [place] [address] [address], [place], [address], 02/21/2024 16:29:15 02/21/20 24 02/21/2024 urina lysis , dipst ick Color Yellow Not Available [facility] [address] [place] [address] [address], [place], [address], 02/21/2024 16:29:15 07/28/19 25 07/28/2024 CBC WITH DIFFE RENTI AL/PL ATELE T WBC 4.6 x10e3 /uL 3.4-10 .8 normal Not Available [facility] ([facility]) [address] [place], [address], 08/05/2024 03:08:13 07/28/19 25 07/28/2024 CBC WITH DIFFE RENTI AL/PL ATELE T RBC 4.25 x10e6 /uL 3.77-5 .28 normal Not Available [facility] ([facility]) [address] [place], [address], 08/05/2024 03:08:13 07/28/19 25 07/28/2024 CBC WITH DIFFE RENTI AL/PL ATELE T hemoglobin 11.4 g/dL 11.1-1 5.9 normal Not Available [facility] ([facility]) [address] [place], [address], 08/05/2024 03:08:13 07/28/19 25 07/28/2024 CBC WITH DIFFE RENTI AL/PL ATELE T hematocrit 36.8 % 34.0-4 6.6 normal Not Available [facility] ([facility]) [address] [place], [address], 08/05/2024 03:08:13 07/28/19 25 07/28/2024 CBC WITH DIFFE RENTI AL/PL ATELE T MCV 87 fL 79-97 normal Not Available [facility] ([facility]) [address] [place], [address], 08/05/2024 03:08:13 07/28/19 25 07/28/2024 CBC WITH DIFFE RENTI AL/PL ATELE T MCH 26.8 pg 26.6-3 3.0 normal Not Available [facility] ([facility]) [address] [place], [address], 08/05/2024 03:08:13 07/28/19 25 07/28/2024 CBC WITH DIFFE RENTI AL/PL ATELE T MCHC 31.0 g/dL 31.5-3 5.7 below low normal Not Available [facility] ([facility]) [address] [place], [address], 08/05/2024 03:08:13 07/28/19 25 07/28/2024 CBC WITH DIFFE RENTI AL/PL ATELE T RDW 14.4 % 11.7-1 5.4 Not Available [facility] ([facility]) [address] [place], [address], 08/05/2024 03:08:13 07/28/19 25 07/28/2024 CBC WITH DIFFE RENTI AL/PL ATELE T platelets 243 x10e3 /uL 150-45 0 normal Not Available [facility] ([facility]) [address] [facility], [place], [address], 08/05/2024 03:08:13 07/28/19 25 07/28/2024 CBC WITH DIFFE RENTI AL/PL ATELE T neutrophils 50 % not estab. normal Not Available [facility] ([facility]) [address] [facility], [place], [address], 08/05/2024 03:08:13 07/28/19 25 07/28/2024 CBC WITH DIFFE RENTI AL/PL ATELE T lymphs 33 % not estab. normal Not Available [facility] ([facility]) [address] [facility], [place], [address], 08/05/2024 03:08:13 07/28/19 25 07/28/2024 CBC WITH DIFFE RENTI AL/PL ATELE T monocytes 10 % not estab. normal Not Available [facility] ([facility]) [address] [place], [address], 08/05/2024 03:08:13 07/28/19 25 07/28/2024 CBC WITH DIFFE RENTI AL/PL ATELE T eos 6 % not estab. normal Not Available [facility] ([facility]) [address] [facility], [place], [address], 08/05/2024 03:08:13 07/28/19 25 07/28/2024 CBC WITH DIFFE RENTI AL/PL ATELE T basos 1 % not estab. normal Not Available [facility] ([facility]) [address] [facility], [place], [address], 08/05/2024 03:08:13 07/28/19 25 07/28/2024 CBC WITH DIFFE RENTI AL/PL ATELE T immature cells COMPOUNDER FLAVORINGS Not Available [facility] ([facility]) [address] [facility], [place], [address], 08/05/2024 03:08:13 07/28/19 25 07/28/2024 CBC WITH DIFFE RENTI AL/PL ATELE T neutrophils (absolute) 2.3 x10e3 /uL 1.4-7. 0 normal Not Available [facility] ([facility]) [address] [place], [address], 08/05/2024 03:08:13 07/28/19 25 07/28/2024 CBC WITH DIFFE RENTI AL/PL ATELE T lymphs (absolute) 1.5 x10e3 /uL 0.7-3. 1 normal Not Available [facility] ([facility]) [address] [place], [address], 08/05/2024 03:08:13 07/28/19 25 07/28/2024 CBC WITH DIFFE RENTI AL/PL ATELE T monocytes(ab solute) 0.5 x10e3 /uL 0.1-0. 9 normal Not Available [facility] ([facility]) [address] [place], [address], 08/05/2024 03:08:13 07/28/19 25 07/28/2024 CBC WITH DIFFE RENTI AL/PL ATELE T eos (absolute) 0.3 x10e3 /uL 0.0-0. 4 normal Not Available [facility] ([facility]) [address] [place], [address], 08/05/2024 03:08:13 07/28/19 25 07/28/2024 CBC WITH DIFFE RENTI AL/PL ATELE T baso (absolute) 0.1 x10e3 /uL 0.0-0. 2 normal Not Available [facility] ([facility]) [address] [place], [address], 08/05/2024 03:08:13 07/28/19 25 07/28/2024 CBC WITH DIFFE RENTI AL/PL ATELE T immature granulocytes 0 % not estab. Not Available [facility] ([facility]) [address] [facility], [place], [address], 08/05/2024 03:08:13 07/28/19 25 07/28/2024 CBC WITH DIFFE RENTI AL/PL ATELE T immature grans (abs) 0.0 x10e3 /uL 0.0-0. 1 Not Available [facility] ([facility]) [address] [facility], [place], [address], 08/05/2024 03:08:13 07/28/19 25 07/28/2024 CBC WITH DIFFE RENTI AL/PL ATELE T NRBC COMPOUNDER FLAVORINGS Not Available [facility] ([facility]) [address] [facility], [place], [address], 08/05/2024 03:08:13 07/28/19 25 07/28/2024 CBC WITH DIFFE RENTI AL/PL ATELE T hematology comments: COMPOUNDER FLAVORINGS Not Available [facility] ([facility]) [address] [facility], [place], [address], 08/05/2024 03:08:13 07/28/19 25 07/29/2024 COMP. METAB OLIC PANEL (14) glucose 86 mg/dL 70-99 normal Not Available [facility] ([facility]) [address] [facility], [place], [address], 08/05/2024 03:08:14 07/28/19 25 07/29/2024 COMP. METAB OLIC PANEL (14) BUN 15 mg/dL 6-24 normal Not Available [facility] ([facility]) [address] [facility], [place], [address], 08/05/2024 03:08:14 07/28/19 25 07/29/2024 COMP. METAB OLIC PANEL (14) creatinine 0.74 mg/dL 0.57-1 .00 normal Not Available [facility] ([facility]) [address] [facility], [place], [address], 08/05/2024 03:08:14 07/28/19 25 07/29/2024 COMP. METAB OLIC PANEL (14) eGFR 102 mL/mi n/1.7 3 >59 normal Not Available [facility] ([facility]) [address] [place], [address], 08/05/2024 03:08:14 07/28/19 25 07/29/2024 COMP. METAB OLIC PANEL (14) BUN/creatini ne ratio 20 9-23 normal Not Available [facility] ([facility]) [address] [place], [address], 08/05/2024 03:08:14 07/28/19 25 07/29/2024 COMP. METAB OLIC PANEL (14) sodium 142 mmol/ L 134-14 4 normal Not Available [facility] ([facility]) [address] [facility], [place], [address], 08/05/2024 03:08:14 07/28/19 25 07/29/2024 COMP. METAB OLIC PANEL (14) potassium 4.3 mmol/ L 3.5-5. 2 normal Not Available [facility] ([facility]) [address] [place], [address], 08/05/2024 03:08:14 07/28/19 25 07/29/2024 COMP. METAB OLIC PANEL (14) chloride 107 mmol/ L 96-106 above high normal Not Available [facility] ([facility]) [address] [place], [address], 08/05/2024 03:08:14 07/28/19 25 07/29/2024 COMP. METAB OLIC PANEL (14) carbon dioxide, total 24 mmol/ L 20-29 normal Not Available [facility] ([facility]) [address] [place], [address], 08/05/2024 03:08:14 07/28/19 25 07/29/2024 COMP. METAB OLIC PANEL (14) calcium 9.1 mg/dL 8.7-10 .2 normal Not Available [facility] ([facility]) [address] [place], [address], 08/05/2024 03:08:14 07/28/19 25 07/29/2024 COMP. METAB OLIC PANEL (14) protein, total 6.0 g/dL 6.0-8. 5 normal Not Available [facility] ([facility]) [address] [place], [address], 08/05/2024 03:08:14 07/28/19 25 07/29/2024 COMP. METAB OLIC PANEL (14) albumin 4.2 g/dL 3.9-4. 9 normal Not Available [facility] ([facility]) [address] [place], [address], 08/05/2024 03:08:14 07/28/19 25 07/29/2024 COMP. METAB OLIC PANEL (14) globulin, total 1.8 g/dL 1.5-4. 5 Not Available [facility] ([facility]) [address] [place], [address], 08/05/2024 03:08:14 07/28/19 25 07/29/2024 COMP. METAB OLIC PANEL (14) bilirubin, total 0.3 mg/dL 0.0-1. 2 normal Not Available [facility] ([facility]) [address] [place], [address], 08/05/2024 03:08:14 07/28/19 25 07/29/2024 COMP. METAB OLIC PANEL (14) alkaline phosphatase 49 IU/L 44-121 normal Not Available [facility] ([facility]) [address] [place], [address], 08/05/2024 03:08:14 07/28/19 25 07/29/2024 COMP. METAB OLIC PANEL (14) AST (SGOT) 20 IU/L 0-40 normal Not Available [facility] ([facility]) [address] [place], [address], 08/05/2024 03:08:14 07/28/19 25 07/29/2024 COMP. METAB OLIC PANEL (14) ALT (SGPT) 13 IU/L 0-32 normal Not Available [facility] ([facility]) [address] [place], [address], 08/05/2024 03:08:14 07/28/19 25 07/29/2024 LIPID PROFI LE cholesterol, total 129 mg/dL 100-19 9 normal Not Available [facility] ([facility]) [address] [place], [address], 08/05/2024 03:08:15 07/28/19 25 07/29/2024 LIPID PROFI LE triglyceride s 34 mg/dL 0-149 normal Not Available [facility] ([facility]) [address] [place], [address], 08/05/2024 03:08:15 07/28/19 25 07/29/2024 LIPID PROFI LE HDL cholesterol 70 mg/dL >39 normal Not Available [facility] ([facility]) [address] [place], [address], 08/05/2024 03:08:15 07/28/19 25 07/29/2024 LIPID PROFI LE VLDL cholesterol krystal 9 mg/dL 5-40 Not Available [facility] ([facility]) [address] [place], [address], 08/05/2024 03:08:15 07/28/19 25 07/29/2024 LIPID PROFI LE LDL chol calc ([facility]) 50 mg/dL 0-99 Not Available [facility] ([facility]) [address] [facility], [place], [address], 08/05/2024 03:08:15 07/28/19 25 07/29/2024 LIPID PROFI LE LDL calc comment: COMPOUND[employer] FLAVORINGS Not Available [facility] ([facility]) [address] [facility], [place], [address], 08/05/2024 03:08:15 07/28/19 25 08/04/2024 1,25- DIHYD ANANDA, VITAM IN D BY MS total 1,25-dihydro xy,vitamin D 34 pg/mL Refer ence Range : Adult s: 21 - 65 Not Available [facility] [address] [place], [address], 08/05/2024 03:08:16 07/28/19 25 08/04/2024 1,25- DIHYD ANANDA, VITAM IN D BY MS 1,25-dihydro xy, vitamin D-2 <10 pg/mL This test was devel oped and its perfo rmanc e john cteri stics deter mined by [facility]. It has not been clear ed or appro amparo by the Food and Drug Admin istra tion. Not Available [facility] [address] [facility], [place], [address], 08/05/2024 03:08:16 07/28/1908/04/2024 1,25- DIHYD ANANDA, VITAM IN D BY MS 1,25-dihydro xy, vitamin D-3 34 pg/mL This test was devel oped and its perfo rmanc e john cteri stics deter mined by [facility]. It has not been clear ed or appro amparo by the Food and Drug Admin istra tion. Not Available [facility] [address] [place], [address], 08/05/2024 03:08:16 07/28/19 25 08/03/2024 THYRO ID STIMU LATIN G HORMO NE TSH-icma 1.7 uu/mL Refer ence Range : Non-P regna nt Adult 0.450 -4.50 0 Pregn jer First Trime ster 0.100 -4.00 0 Secon d Trime ster 0.200 -4.00 0 Third Trime ster 0.300 -4.50 0 Not Available [facility] [address] [facility], [place], [address], 08/05/2024 03:08:17 07/28/19 25 07/28/2024 HEMOG LOBIN A1C hemoglobin A1C 5.6 % 4.8-5. 6 normal Predi abete s: 5.7 - 6.4 Diabe morris: >6.4 Glyce olivia contr ol for adult s with diabe morris: <7.0 Not Available [facility] ([facility]) [address] [facility], [place], [address], 08/05/2024 03:08:18 01/10/20 24 01/09/2024 XR, wrist , 3 or more view No observ ation record ed. [email or web address] [facility] [address], [place], [address], 01/30/2024 10:19:14 07/07/19 25 04/14/2024 elect romyo gram + nerve condu ction study No observ ation record ed. [email or web address] [address], [place], [address], 07/08/2024 21:51:53 07/08/19 25 07/08/2024 XR, wrist No observ ation record ed. [email or web address] [address], [place], [address], 07/08/2024 12:28:28 10/06/19 25 10/05/2024 XR, lumba r spine No observ ation record ed. [email or web address] [place] [id number] [facility] [address], [place], [address], 10/05/2024 14:22:32 Result Notes None recorded. 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 Active Not Available [facility] 3 02:55:43 Secondary peripheral neuropathy 186611 Active Not Available [facility] 3 02:55:43 Neuropathy 814760751 Active Not Available [facility] 3 02:55:43 Lower urinary tract infectious disease 8468656 Active Not Available [facility] 3 02:55:43 Ulcer 655891230 Active Not Available [facility] 3 02:55:43 Seasonal allergy 181495779 Active Not Available [facility] 3 02:55:43 Pain of shoulder region 83569321 Active Not Available [facility] 3 02:55:44 Dysuria 84737084 Active Not Available [facility] 3 02:55:44 Upper respirator y infection 15738496 Active Not Available [facility] 3 02:55:44 Fracture of pelvis 06628772 Active 2008 Not Available [facility] 3 02:55:44 Pain of right wrist 1586356581605 00 Active 2023 SHERYL Soto [address], [place], [address] , [employer] [facility] [employer] 4 09:05:38 Delay when starting to pass urine 1625463 Active 2023 SHERYL Soto [address], [place], [address] , [employer] [facility] [employer] 4 09:50:55 Paresthesi a of upper limb 60289234 Active 2023 SHERYL Soto [address], [place], [address] , [employer] 4 17:03:55 Bilateral carpal tunnel syndrome 8548896907361 9101 Active 2024 YOSELIN Fraga-C [address], [place], [address] , [employer] 5 15:15:27 Low back pain 475790073 Active 2024 [facility]L Fraga [address] [facility], [place] [address], [place], [address] , [employer] 5 15:17:16 Acute upper respirator y infection 35954219 Active 2024 SHERYL Fraga [address] [facility], [place] [address], [place], [address] , [employer] 5 15:32:16 Problem Notes None recorded. Medical Equipment None Reported. Allergies Allergen ID Allergen Name Allergen Category Reaction Reaction Severity Criticality Documentation Date Start Date Code Code System Note Provider Name and Address Organization Details Recorded Time 4874 adhesive environme nt,medica tion Not available Not available Not available 08/15/2022 72919 UNK tape alexander ids Not Available [employer] 3 03:04:09 79533 azithromy [facility] n diarrhea Not available low 09/08/20242024 74301 RxNorm TERRY Jeffrey, [facility] [employer] [facility] 5 11:50:32 Medications Name Sig Start Date Stop Date Status Note LastModified by Organization Details LastModified Time Mirena 21 mcg/24 hr (up to 8 years) 52 mg intrauterin e device Take by intrauter ine route. 2019 active Not Available Not Available Not Avai lable cetirizine 10 mg tablet TK 1 T PO QD active Not Available Not Available No t Available azithromyci n 250 mg tablet TAKE 2 TABLETS (500 MG) BY ORAL ROUTE ONCE DAILY FOR 1 DAY THEN 1 TABLET (250 MG) BY ORAL ROUTE ONCE DAILY FOR 4 DAYS 10/12 completed Not Available Not Available Not Available ibuprofen 800 mg tablet 03/22 completed Not Available Not Available Not Available valacyclovi r 1 gram tablet TAKE 2 TABLETS BY MOUTH EVERY 12 HOURS active Not Available Not Available No t Available hydrocodone 5 mg-acetamin ophen 325 mg tablet 09/14 completed Not Available Not Available Not Available meloxicam 15 mg tablet 04/28 completed Not Available Not Available Not Available ondansetron HCl 4 mg tablet TK 1 T PO Q 6 H PRN N 01/24 completed Not Available Not Available Not Available metronidazo le 500 mg tablet active Not Available Not Available Not Available ciprofloxac in 500 mg tablet Take 1 tablet every 12 hours by oral route as directed for 5 days. 04/01 completed Not Available Not Available Not Available sulfamethox azole 800 mg-trimetho prim 160 mg tablet Take 1 tablet every 12 hours by oral route for 3 days. active Not Available Not Available No t Available peg-electro lyte solution 420 gram oral solution TAKE DIRECTED BY OFFICE 10/12 completed Not Available Not Available Not Available cefadroxil 500 mg capsule 03/22 completed Not Available Not Available Not Available oxycodone-a cetaminophe n 5 mg-325 mg tablet 01/24 completed Not Available Not Available Not Available terbinafine HCl 250 mg tablet Take 1 tablet every day by oral route. active Not Available Not Available No t Available amoxicillin 875 mg tablet Take 1 tablet every 12 hours by oral route for 7 days. active Not Available Not Available No t Available promethazin e 25 mg tablet TAKE 1/2 TABLET BY MOUTH EVERY 6 HOURS NEEDED 10/12 completed Not Available Not Available Not Available Drysol Dab-O-Matic 20 % topical solution APPLY TO UNDERARMS TWICE WEEKLY AT NEEDED 10/12 completed Not Available Not Available Not Available diclofenac sodium 75 mg tablet,dina yed release TK 1 T PO BID PRN 02/20 completed Not Available Not Available Not Available hydrocortis one 2.5 % topical cream MIX WITH KETOCONAZ OLE CREAM AND APPLY 2 TIMES DAILY NEEDED TO AFFECTED AREAS. LIMIT USE TO NO LONGER THEN 2 CONSECUTI VE WEEKS active Not Available Not Available No t Available gabapentin 100 mg capsule TK 1 C PO TID 09/10 completed Not Available Not Available Not Available ibuprofen 600 mg tablet 09/14 completed Not Available Not Available Not Available oxycodone-a cetaminophe n 7.5 mg-325 mg tablet 01/24 completed Not Available Not Available Not Available albuterol sulfate HFA 90 mcg/actuati on aerosol inhaler INHALE 2 PUFFS BY MOUTH EVERY 4 HOURS NEEDED active Not Available Not Available No t Available SSD 1 % topical cream KAPIL EXT AA D 09/14 completed Not Available Not Available Not Available ketoconazol e 2 % topical cream MIX WITH HYDROCORT ISONE CREAM AND APPLY 2 TIMES DAILY NEEDED TO AFFECTED AREAS active Not Available Not Available No t Available ondansetron 4 mg disintegrat ing tablet 09/14 completed Not Available Not Available Not Available fluticasone propionate 50 mcg/actuati on nasal spray,suspe nsion Inhale 1 spray(s) every day by intranasa l route as directed. 01/24 completed Not Available Not Available Not Available ipratropium bromide 21 mcg (0.03 %) nasal spray USE 2 SPRAYS IN EACH NOSTRIL THREE TIMES DAILY NEEDED active Not Available Not Available No t Available amoxicillin 875 mg-potassiu m clavulanate 125 mg tablet TAKE 1 TABLET BY MOUTH EVERY 12 HOURS 10/12 completed Not Available Not Available Not Available nitrofurant oin monohydrate /macrocryst als 100 mg capsule 03/22 completed Not Available Not Available Not Available pregabalin 75 mg capsule 1 po bid 2024 active Not Available Not Available Not Avai lable Lyrica 150 mg capsule 09/14 completed Not Available Not Available Not Available calcium 2014 active Not Available Not Available Not Avai lable Calcium 500 2014 active Not Available Not Available Not Avai lable sodium fluoride 1.1 %-potassium nitrate 5 % dental paste USE DIRECTED TWICE DAILY 02/20 completed Not Available Not Available Not Available Calcium 500 + D (D3) 01/24 completed OTC Not Available Not Available Not Available Probiotic 01/24 completed Not Available Not Available Not Available Vitamin D3 50 mcg (2,000 unit) capsule Take 1 capsule every day by oral route. active Not Available Not Available No t Available Glucosamine Chondroitin PLUS 2014 active Not Available Not Available Not Avai lable Fluvirin 45 mcg (15 mcg x 3)/0.5 mL intramuscul ar suspension INJECT 0.5 ML INTRAMUSC ULARLY DIRECTED. 03/22 completed Not Available Not Available Not Available ProAir RespiClick 90 mcg/actuati on breath activated INL 2 PFS PO Q 4 H PRN 02/20 completed Not Available Not Available Not Available Fluvirin 45 mcg (15 mcg x 3)/0.5 mL intramuscul ar suspension active Not Available Not Available N ot Available Fluvirin 45 mcg (15 mcg x 3)/0.5 mL intramuscul ar suspension ADM 0.5ML IM UTD 02/20 completed Not Available Not Available Not Available Flucelvax Quad (PF) 60 mcg (15 mcg x 4)/0.5 mL IM syringe ADM 0.5ML IM UTD 07/06 completed Not Available Not Available Not Available Afluria Quad (PF) 60 mcg (15 mcg x 4)/0.5 mL IM syringe ADM 0.5ML IM UTD 02/20 completed Not Available Not Available Not Available COVID-19 test specimen collection TEST DIRECTED TODAY 02/20 completed Not Available Not Available Not Available Flublok Quad (PF) 180 mcg (45 mcg x 4)/0.5 mL IM syringe PHARMACIS T ADMINISTE RED IMMUNIZAT ION ADMINISTE RED AT TIME OF DISPENSIN G 02/20 completed Not Available Not Available Not Available [employer] COVID-19 Ag Self Test kit TEST DIRECTED TODAY 02/20 completed Not Available Not Available Not Available Vitals Date Recorded Body height Body mass index (BMI) Body weight Body temperature Heart rate Oxygen saturation Oxygen saturation in Arterial blood by Pulse oximetry Systolic blood pressure Diastolic blood pressure Provider Name and Address Organization Details Last Updated DateTime 162.56 cm 22.3 kg/m2 34815.0 1 g 97.8 [degF] 80 /min 98 % 98 % 120 mm[Hg] 76 mm[Hg] Dylon Napier RN [place] [facility] 14:59:49 Date Recorded Body height Body mass index (BMI) Body weight Body temperature Heart rate Oxygen saturation Oxygen saturation in Arterial blood by Pulse oximetry Systolic blood pressure Diastolic blood pressure Provider Name and Address Organization Details Last Updated DateTime 5 162.56 cm 22.1 kg/m2 04084.4 2 g 98.2 [degF] 65 /min 98 % 98 % 118 mm[Hg] 68 mm[Hg] Milagros Baxter MA [facility] [employer] [facility] 5 08:38:15 Date Recorded Body height Body mass index (BMI) Body weight Body temperature Heart rate Oxygen saturation Oxygen saturation in Arterial blood by Pulse oximetry Systolic blood pressure Diastolic blood pressure Provider Name and Address Organization Details Last Updated DateTime 4 162.56 cm 22 kg/m2 06079.8 2 g 98.1 [degF] 79 /min 100 % 100 % 118 mm[Hg] 78 mm[Hg] Cristine Menchaca RN [facility] [employer] [facility] 4 09:02:38 Date Recorded Body height Body mass index (BMI) Body weight Body temperature Heart rate Oxygen saturation Oxygen saturation in Arterial blood by Pulse oximetry Provider Name and Address Organization Details Last Updated DateTime 4 162.56 cm 22 kg/m2 72158.8 2 g 98.2 [degF] 64 /min 99 % 99 % Ritika Barger [facility] [employer] [facility] 4 16:33:27 Date Recorded Body mass index (BMI) Body height Provider Name and Address Organization Details Last Updated DateTime 05/13/2023 22.8 kg/m2 162.56 cm Danna Sorensen MD [address] [place] [address], [address], [facility] [employer] [facility] 05/13/2023 16:30:43 Date Recorded Body weight Body temperature Heart rate Oxygen saturation Oxygen saturation in Arterial blood by Pulse oximetry Systolic blood pressure Diastolic blood pressure Provider Name and Address Organization Details Last Updated DateTime 3 62585.7 9 g 97.7 [degF] 66 /min 98 % 98 % 116 mm[Hg] 74 mm[Hg] Dylon Napier RN [facility] [employer] [facility] 3 16:14:39 Social History Question Answer Notes LastModified by Organization Details LastModified Time Tobacco Smoking Status Never Smoker Not Available [facility] 08/15/2022 02:48:16 Do You Have An Advance Directive? No [id number] Information not available 08/15/2022 What Is Your Level Of Caffeine Consumption? Moderate [id number] Information not available 08/15/2022 In The 14 Days Before Symptom Onset, Have You Had Close Contact With A Laboratory-conf irmed COVID-19 While That Case Was Ill? No [id number] Information not available 08/15/2022 In The 14 Days Before Symptom Onset, Have You Had Close Contact With A Person Who Is Under Investigation For COVID-19 While That Person Was Ill? No [id number] Information not available 08/15/2022 What Type Of Diet Are You Following? REGULAR Lactose Intolerant Information not available 10/12/2024 Have There Been Any Changes To Your Family Or Social Situation? No Information not available 10/12/2024 Are There Any Guns Present In Your Home? No [id number] Information not available 08/15/2022 Do You Use Insect Repellent Routinely? Yes Information not available 10/12/2024 Where Do You Live? [facility] Information not available 10/12/2024 What Was The Date Of Your Most Recent Tobacco Screening? 10/12/2024 Information not available 10/12/2024 How Many Children Do You Have? 0 Information not available 10/12/2024 Do You Have Any Pets? Yes Information not available 10/12/2024 What Is Your Relationship Status? Information not available 10/12/2024 Do You Use Your Seat Belt Or Car Seat Routinely? Yes Information not available 10/12/2024 Do You Have Smoke And Carbon Monoxide Detectors In Your Home? Yes Information not available 10/12/2024 Are You Passively Exposed To Smoke? No Information not available 10/12/2024 Are There Any Smokers In Your House? No Information not available 10/12/2024 Do You Participate In Social Media? No Information not available 10/12/2024 Do You Use Sunscreen Routinely? Yes [id number] [id number] Information not available 08/15/2022 Have You Recently Traveled Abroad? No Information not available 10/12/2024 Are You Currently In School? No Information not available 10/12/2024 Do You Have Any Dietary Restrictions? No Information not available 10/12/2024 Sex: Unknown Functional Status Question Answer Note LastModified by Organizat ion Details LastModified Time Do you use any illicit or recreational drugs? No Information not available 10/12/2024 Do you or have you ever used any other forms of tobacco or nicotine? No Information not available 10/12/2024 What is your level of alcohol consumption? None [id number] Information not available 08/15/2022 Are you currently employed? 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 Moderate Information not available 10/12/2024 Mental Status Question Answer Note LastModified by Organization D etails LastModified Time Do you feel stressed (tense, restless, nervous, or anxious, or unable to sleep at night)? [id number] Information not available 10/12/2024 Family History Relationship Description Onset Age of this Age Resolved Age Notes LastModified by Organization Details LastModified Time Mother Malignant tumor of breast [id number] Not available 08/15/2022 02:48:36 Mother Wernicke's disease [id number] Not available 08/15/2022 02:48:36 Mother Rheumatoid arthritis [id number] Not available 08/15/2022 02:48:36 Maternal Grandmother Malignant tumor of breast recurr ed in her 80s [id number] Not available 08/15/2022 02:48:36 Maternal Uncle Rheumatoid arthritis [id number] Not available 08/15/2022 02:48:36 Notes:2 maternal great aunts breast cancer Medical History Condition Response BLINDNESS N RHEUMATIC FEVER N KIDNEY STONES N BLADDER PROBLEMS N MRSA N OTHER # 1 N POLIO N LUNG DISEASE/DISORDER N RADIATION / CHEMOTHERAPY N COPD N Other # 2 N BLOOD DISEASES N SURGERY N EAR OR HEARING PROBLEMS N MUMPS N FEMALE PROBLEMS / INFECTIONS N DEPRESSION (INCLUDING POST ) N BOWEL PROBLEMS N STROKE/TIA N THYROID DISEASE N ULCERS N BENIGN PROSTATIC HYPERPLASIA N MEASLES N CERVICALGIA N TB SKIN TEST N MYOCARDIAL INFARCTION N PARAPELGIA N OBESITY N GERD/NAUSEA N ANEURYSM N URINARY/BLADDER/KIDNEY PROBLEMS N CORONARY ARTERY DISEASE (CAD) N MENIERE'S DISEASE N ADDICTION CONCERNS N ENDOMETRIOSIS N USE OF BLOOD THINNERS N SKIN PROBLEMS N EMPHYSEMA N GASTROINTESTINAL DISORDER N MUSCLE,JOINT OR BONE PROBLEMS N GASTROINTESTINAL BLEEDING N BLOOD CLOTS N ASTHMA N CATARACTS N ERECTILE DYSFUNCTION N GI PROBLEMS N CHF N Low Testosterone N NEUROPATHY N INFERTILITY N AIDS/HIV N FRACTURES N CHEMOTHERAPY / RADIATION N VISION/EYE PROBLEMS N LIVER DISEASE N MALE HYPOGONADISM N HYPERTENSION N ANXIETY DISORDER N BLOOD TRANSFUSION N ANEMIA/BLOOD DISORDER N CHRONIC EAR INFECTIONS N BRONCHITIS N TUBERCULOSIS N GLAUCOMA N FOOT PROBLEM N DIVERTICULITIS N SLEEP APNEA N CHICKENPOX N ALLERGIES/HAYFEVER N INFECTIOUS DISEASE N PROSTATE N HEART ARRHYTHMIA N INSOMNIA N HIGH CHOLESTEROL / HYPERLIPIDEMIA N EYE PROBLEMS N HYPERTHYROIDISM N EATING DISORDER N NEUROLOGICAL PROBLEMS N EDEMA N CHRONIC PAIN SYNDROME N HYPOTHYROIDISM N CAROTID BLOCKAGE N CONSTIPATION N BACK / NECK PROBLEMS N HAVE YOU BEEN HOSPITALIZED OR SEEN IN [facility] IN THE PAST YEAR ? N ATHEROSCLEROSIS N BREAST PROBLEMS N DIALYSIS N ECZEMA N FIBROMYALGIA N OSTEOPOROSIS N ARTHRITIS N NO SIGNIFICANT PAST MEDICAL HISTORY N APPENDICITIS N DIABETES, TYPE N BAD TEETH N HEARTBURN / REFLUX N ADD/ADHD N AUTISM SPECTRUM DISORDER (ASD) N HEPATITIS / LIVER DISEASE N PULMONARY DISEASE N GOUT N SLEEP DISORDER N ALZHEIMER'S DISEASE N PAIN N DEMENTIA N HERPES N SEIZURES/EPILEPSY N HEADACHES/MIGRAINES N VASCULAR DISEASE N PACEMAKER N DIZZINESS N HEART DISEASE/HEART PROBLEMS N KIDNEY DISEASE N SCARLET FEVER N MULTIPLE SCLEROSIS N DEVELOPMENTAL OR BEHAVIORAL DISORDERS N MENTAL DISORDER/ILLNESS N CANCER: SPECIFY N CARDIAC ARRHYTHMIA N PNEUMONIA N ATRIAL FIBRILLATION N Gall Stones N PULMONARY EMBOLISM N AUTOIMMUNE DISEASE N Gynecological History Statement/Question Response How many live births 0 Date of Last Colonoscopy Date of LMP Date of Last Pap Smear Current Control Method IUD Most Recent Mammogram Breast Problems no Obstetrics History GPAL:G 0 P 0 0 0 0 Type Value Multiple Births 0 Full Term 0 Induced 0 Spontaneous 0 Premature 0 Living 0 Ectopics 0 Total 0 Immunizations Vaccine Type Date Status Note Provider Nam e and Address Organization Details Recorded Time COVID-19, mRNA, LNP-S, PF, 30 mcg/0.3 mL dose 09/09/2020 completed Not Available [facility] 3 03:04:03 COVID-19, mRNA, LNP-S, PF, 100 mcg/0.5mL dose or 50 mcg/0.25mL dose 08/19/2020 completed Not Available [facility] 3 03:04:03 Tdap 10/14/2017 completed Not Available [facility] 08/15/2022 03:04:03 Influenza, split virus, quadrivalent, PF 03/23/2021 completed Not Available [facility] 3 03:04:03 Past Encounters Encounter ID Performer Location Encounter Start Date Encounter Closed Date Diagnosis/Indication Diagnosis SNOMED-CT Code Diagnosis ICD10 Code Diagnosis Note [id number] Danna Sorensen MD [facility] Primary Care [place] [address] [facility] [address] [place] [address] 09/14/2020 00:00:00 09/14/2020 13:40:14 [id number] Danna Sorensen MD [facility] Primary Care [place] [address] [place] [address] 03/23/2021 00:00:00 03/23/2021 09:04:03 [id number] Danna Sorensen MD [facility] Primary [place] [address] [place] [address] 10/09/2021 00:00:00 10/09/2021 08:56:05 [id number] Danna Sorensen MD [facility] Primary Care [place] [address] [place] [address] 05/07/2022 00:00:00 05/07/2022 08:33:25 [id number] Danna Sorensen MD [facility] Primary [place] [address] [facility] [address] [place] [address] 05/13/2023 16:08:23 05/13/2023 16:49:06 Adult health examination [id number] Z00.00 Mammogram with f/u US and diagnostic done 04/08Fasti ng labs done through work were excellentP ap todayScree naldo DEXA through work at low end of normal-she takes calcium + D 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, plan to check DEXA post menopauseM mansoor in placeColon cancer screen age 44 [id number] LAMAR Warren S[facility] Primary Care [facility] [address] [facility] [facility] [address] [place] [address] 01/09/2024 08:53:41 01/09/2024 09:19:04 Pain of right wrist [id number] 63881 M25.531 tingling to right finger tips with tinel testpain rated at 4/10 on averagedRO M intact, weakness noted with grippingun able to sleep comfortabl e d/t the right hand, she is a side sleepernot es right hand going to sleep when she is riding her bikexray obtained Dysuria [id number] R30.0 low abd discomfort , some burning (resolved) , frequency, trouble initiating went to UC, dip performed/ pelvic exam negativewi ll obtainif urine negative, will give referral to urologyuri ne dip found to be negative Delay when starting to pass urine [id number] R39.11 [id number] Rock Womack MD [facility] [address] [facility] [address] [place] [address] 02/21/2024 16:09:22 02/21/2024 16:48:03 Delay when starting to pass urine [id number] R39.11 [id number] SENAIT FragaP-Shannan [facility] Primary Care [facility] [address] [facility] [address] [place] [address] 07/06/2024 14:50:51 07/06/2024 17:04:28 Neuropathy [id number] G62.9 Bilateral carpal tunnel syndrome [id number] G56.03 Low back pain [id number] M54.50 Adult heal th examination [id number] Z00.00 Discussed medication compliance and routine follow up.Discuss ed healthy diet and routine exercise.Taz medranoiewed vaccine records and made recommenda tions as needed.Enc ouraged annual eye and dental exams, as well as twice yearly dental cleanings. Will check screening labs as listed below. Screening colonoscopy 44 [id number] Z12.11 [id number] SHERYL Fraga [facility] Primary [facility] [place] [address] [facility] [address] [place] [address] 10/12/2024 08:30:55 10/12/2024 09:12:27 Neuropathy [id number] G62.[address] refill: 08/15/2024 UDS UTDlast appt: 10/12/24ne xt appt: 3 months, sooner if needed. 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 Danna Sorensen MD [address], [place], [address], [employer] [facility] [employer] 05/15/2023 18:54:42 01/09/2024 text/html pt is here for f/u SHERYL Khalil [address], [place], [address], [employer] [facility] [employer] 01/09/2024 11:03:31 02/21/2024 text/html this patient had just a few episodes of where she felt as if she had some hesitancy where it took her a while to get started voiding but when she did she voided with a good stream. She has never had children has never want to have children so she has never had any pregnancies or deliveries She exercises a lot She does not have a history of urinary tract infections She has no history of gross hematuria Rock Womack MD [address], [place], [address], [employer] 02/21/2024 16:57:42 07/06/2024 text/html Patient is a 43 year old female that presents to the office for annual wellness. Patient reports she had a nerve conduction study completed in March 2024 at [facility] and was told it's not that bad, it shouldn't be that big of a deal. Patient reports she continues to have issues even with wearing the braces at night. Patient reports she still wakes up several mornings with her right hand completely asleep. low back pain on the left side, no radiation of pain, started after shoveling snow, no evaluation or treatment, symptoms improved after a few days. Patient reports previous injury several years ago. labs-ordered ([facility])WWE- (03/2024)Mammogram - (03/2024)Colonosco py-age 50Rrl-HLHEhjow-vmi linesTdap- UTD 2018Shingles-age 49 SHERYL Fraga [address], [place], [address], [employer] 07/06/2024 16:55:22 10/12/2024 text/html Patient is a 44 year old female that presents to the office for 3 month follow up. SHERYL Fraga [address], [place], [address], [employer] 10/12/2024 09:08:32 OBGyn Episode No OBEpisode recorded.
--- OUTSIDE RECORDS SUMMARY | 2024-12-17 06:27 | XMS_ITS | Encounter Summary ---
Author Organization [facility] Address [address] [place] [address] Care Team Providers Care Program Director/Morning Show Host Name Role Phone Nava Mckeon MD Primary Care Prov ider Unavailable Encounter Details Date Type Department Care Team (Late st Contact Info) Description 11/18/2000 Outpatient Historical [facility] Internal Medicine [place] [address] [place] [address] Ruben De La O MD [address] [place] [address] Social History Tobacco Use Types Packs/Day Years Used Date Smoking Tobacco: Never Assessed Comments Unknown Sex and Gender Information Value Date Recorded Sex Assigned at Not on file Legal Sex Female 4:46 AM CONCRETE PANEL INSTALLER Gender Identity Not on file Sexual Orientation Not on file documented as of this encounter Plan of Treatment Not on file documented as of this encounter Visit Diagnoses Not on filedocumented in this encounter Care Teams Program Director/Morning Show Host Relationship Specialty Start Date End Date Nava Mckeon MD PCP - General 11/10/08 06/24/11 documented as of this encounter
--- OUTSIDE RECORDS SUMMARY | 2024-12-17 06:27 | XMS_ITS | Encounter Summary ---
Author Organization [facility] Address [address] [place] [address] Care Team Providers Care Receiving Team Member Name Role Phone Nava Mckeon MD Primary Care Prov ider Unavailable Encounter Details Date Type Department Care Team (Late st Contact Info) Description 02/15/2000 Outpatient Historical [facility] Internal Medicine [place] [address] [place] [address] Ruben De La O MD [address] [place] [address] Social History Tobacco Use Types Packs/Day Years Used Date Smoking Tobacco: Never Assessed Comments Unknown Sex and Gender Information Value Date Recorded Sex Assigned at Not on file Legal Sex Female 4:46 AM AUCTION CLERK Gender Identity Not on file Sexual Orientation Not on file documented as of this encounter Plan of Treatment Not on file documented as of this encounter Visit Diagnoses Not on filedocumented in this encounter Care Teams Receiving Team Member Relationship Specialty Start Date End Date Nava Mckeon MD PCP - General 11/10/08 06/24/11 documented as of this encounter
--- OUTSIDE RECORDS SUMMARY | 2024-12-17 06:27 | XMS_ITS | Encounter Summary ---
Author Organization [employer] Address [address] [place] [address] Care Team Providers Care Auto Body Service Mechanic Name Role Phone Nava Mckeon MD Primary Care Prov ider Unavailable Encounter Details Date Type Department Care Team (Late st Contact Info) Description 04/02/2008 Outpatient Historical [facility] Ruben De La O MD [address] [place] [address] Other Malaise and Fatigue Social History Tobacco Use Types Packs/Day Years Used Date Smoking Tobacco: Never Alcohol Use Standard Drinks/Week Comments Not Asked 0 (1 standard drink = 0.6 oz pur e alcohol) Comments No Sex and Gender Information Value Date Recorded Sex Assigned at Not on file Legal Sex Female 4:46 AM ASSISTANT DIRECTOR OF PLANT OPERATIONS Gender Identity Not on file Sexual Orientation Not on file documented as of this encounter Plan of Treatment Not on file documented as of this encounter Visit Diagnoses Diagnosis Other malaise and fatigue documented in this encounter Care Teams Auto Body Service Mechanic Relationship Specialty Start Date End Date Nava Mckeon MD PCP - General 11/10/08 06/24/11 documented as of this encounter
--- OUTSIDE RECORDS SUMMARY | 2024-12-17 06:27 | XMS_ITS | Encounter Summary ---
Author Organization [facility] Address [address] [place] [address] Care Team Providers Care Night Shift Supervisor Name Role Phone Nava Mckeon MD Primary Care Prov ider Unavailable Encounter Details Date Type Department Care Team (Late st Contact Info) Description 04/16/2007 Outpatient Historical [facility] Internal Medicine [place] [address] [place] [address] Ruben De La O MD [address] [place] [address] Social History Tobacco Use Types Packs/Day Years Used Date Smoking Tobacco: Never Assessed Comments No Sex and Gender Information Value Date Recorded Sex Assigned at Not on file Legal Sex Female 4:46 AM SUPERVISOR SAMPLE Gender Identity Not on file Sexual Orientation Not on file documented as of this encounter Plan of Treatment Not on file documented as of this encounter Visit Diagnoses Not on filedocumented in this encounter Care Teams Night Shift Supervisor Relationship Specialty Start Date End Date Nava Mckeon MD PCP - General 11/10/08 06/24/11 documented as of this encounter
--- OUTSIDE RECORDS SUMMARY | 2024-12-17 06:27 | XMS_ITS | Encounter Summary ---
Author Organization [facility] Address [address] [place] [address] Care Team Providers Care Reinforcing Steel Worker Wire Mesh Name Role Phone Nava Mckeon MD Primary Care Prov ider Unavailable Encounter Details Date Type Department Care Team (Late st Contact Info) Description 04/20/2005 Outpatient Historical [facility] Internal Medicine [place] [address] [place] [address] Ruben De La O MD [address] [place] [address] Social History Tobacco Use Types Packs/Day Years Used Date Smoking Tobacco: Never Assessed Comments Unknown Sex and Gender Information Value Date Recorded Sex Assigned at Not on file Legal Sex Female 4:46 AM ORTHO ASSISTANT Gender Identity Not on file Sexual Orientation Not on file documented as of this encounter Plan of Treatment Not on file documented as of this encounter Visit Diagnoses Not on filedocumented in this encounter Care Teams Reinforcing Steel Worker Wire Mesh Relationship Specialty Start Date End Date Nava Mckeon MD PCP - General 11/10/08 06/24/11 documented as of this encounter
--- OUTSIDE RECORDS SUMMARY | 2024-12-17 06:27 | XMS_ITS | Encounter Summary ---
Author Organization [facility] Address [address] [place] [address] Care Team Providers Care Senior Planning Manager Name Role Phone Nava Mckeon MD Primary Care Prov ider Unavailable Encounter Details Date Type Department Care Team (Late st Contact Info) Description 12/30/2003 Outpatient Historical [facility] Internal Medicine [place] [address] [place] [address] Ruben De La O MD [address] [place] [address] Social History Tobacco Use Types Packs/Day Years Used Date Smoking Tobacco: Never Assessed Comments Unknown Sex and Gender Information Value Date Recorded Sex Assigned at Not on file Legal Sex Female 4:46 AM LUMBER CHECKER Gender Identity Not on file Sexual Orientation Not on file documented as of this encounter Plan of Treatment Not on file documented as of this encounter Visit Diagnoses Not on filedocumented in this encounter Care Teams Senior Planning Manager Relationship Specialty Start Date End Date Nava Mckeon MD PCP - General 11/10/08 06/24/11 documented as of this encounter
--- OUTSIDE RECORDS SUMMARY | 2024-12-17 06:27 | XMS_ITS | Encounter Summary ---
Author Organization [facility] Address [address] [place] [address] Care Team Providers Care Layout Worker Name Role Phone Nava Mckeon MD Primary Care Prov ider Unavailable Encounter Details Date Type Department Care Team (Late st Contact Info) Description 01/03/2004 Outpatient Historical [facility] Internal Medicine [place] [address] [place] [address] Ruben De La O MD [address] [place] [address] Social History Tobacco Use Types Packs/Day Years Used Date Smoking Tobacco: Never Assessed Comments Unknown Sex and Gender Information Value Date Recorded Sex Assigned at Not on file Legal Sex Female 4:46 AM ENGINEER BYPRODUCT Gender Identity Not on file Sexual Orientation Not on file documented as of this encounter Plan of Treatment Not on file documented as of this encounter Visit Diagnoses Not on filedocumented in this encounter Care Teams Layout Worker Relationship Specialty Start Date End Date Nava Mckeon MD PCP - General 11/10/08 06/24/11 documented as of this encounter
--- OUTSIDE RECORDS SUMMARY | 2024-12-17 06:27 | XMS_ITS | Encounter Summary ---
Author Organization [facility] Address [address] [place] [address] Care Team Providers Care Food And Beverage Manager Name Role Phone Nava Mckeon MD Primary Care Prov ider Unavailable Encounter Details Date Type Department Care Team (Late st Contact Info) Description 04/25/1999 Outpatient Historical [facility] Internal Medicine [place] [address] [place] [address] Ruben De La O MD [address] [place] [address] Social History Tobacco Use Types Packs/Day Years Used Date Smoking Tobacco: Never Assessed Comments Unknown Sex and Gender Information Value Date Recorded Sex Assigned at Not on file Legal Sex Female 4:46 AM AIR BRAKE TESTER Gender Identity Not on file Sexual Orientation Not on file documented as of this encounter Plan of Treatment Not on file documented as of this encounter Visit Diagnoses Not on filedocumented in this encounter Care Teams Food And Beverage Manager Relationship Specialty Start Date End Date Nava Mckeon MD PCP - General 11/10/08 06/24/11 documented as of this encounter
--- OUTSIDE RECORDS SUMMARY | 2024-12-17 06:27 | XMS_ITS | Encounter Summary ---
Author Organization [facility] Address [address] [place] [address] Care Team Providers Care Bit Sharpener Operator Name Role Phone Nava Mckeon MD Primary Care Prov ider Unavailable Encounter Details Date Type Department Care Team (Late st Contact Info) Description 03/06/2000 Outpatient Historical [facility] Internal Medicine [place] [address] [place] [address] Ruben De La O MD [address] [place] [address] Social History Tobacco Use Types Packs/Day Years Used Date Smoking Tobacco: Never Assessed Comments Unknown Sex and Gender Information Value Date Recorded Sex Assigned at Not on file Legal Sex Female 4:46 AM PROCESS WORKER Gender Identity Not on file Sexual Orientation Not on file documented as of this encounter Plan of Treatment Not on file documented as of this encounter Visit Diagnoses Not on filedocumented in this encounter Care Teams Bit Sharpener Operator Relationship Specialty Start Date End Date Nava Mckeon MD PCP - General 11/10/08 06/24/11 documented as of this encounter
--- OUTSIDE RECORDS SUMMARY | 2024-12-17 06:27 | XMS_ITS | Encounter Summary ---
Author Organization [facility] Address [address] [place] [address] Care Team Providers Care Portable Canteen Operator Name Role Phone Unavailable Primary Care Provider Unavailabl e Encounter Details Date Type Department Care Team (Late st Contact Info) Description 07/28/2018 Lab Requisition [facility] Care DermPath Lab [address] [facility] [place] [id number] Catalina Rueda MD [address] [facility] [address] [place] [address] Social History Tobacco Use Types Packs/Day Years Used Date Smoking Tobacco: Never Assessed Comments Unknown Sex and Gender Information Value Date Recorded Sex Assigned at Not on file Legal Sex Female 5:28 AM HOOP MACHINE OPERATOR Gender Identity Not on file Sexual Orientation Not on file documented as of this encounter Plan of Treatment Not on file documented as of this encounter Procedures Procedure Name Priority Date/Time Associated Diagnosis Comments DERMATOPATH TECHNICAL REPORT Routine 07/25/2018 12:00 AM HOOP MACHINE OPERATOR documented in this encounter Results * DERMATOPATH TECHNICAL REPORT (07/25/2018 12:00 AM HOOP MACHINE OPERATOR) Case Report Dermatopathology Report Case: [id number] Authorizing Provider: Catalina Rueda MD Collected: 07/25/2018 12:00 AM Pathologist: Urbano Mac MD Received: 07/28/2018 07:05 AM Specimen: Skin, right post ear 9 6:14 PM HOOP MACHINE OPERATOR DERMATOPATHOLOGY LABORATORY Addendum 1 At the request of the diagnosing physician, the technical component for CD3, CD20 and CD68 was performed by [facility] Dermatopathology Laboratory. 9 6:14 PM HOOP MACHINE OPERATOR DERMATOPATHOLOGY LABORATORY Addendum electronically signed by Urbano Mac MD on 07/31/2018 at 1814 HOOP MACHINE OPERATOR Clinical History BCC. Non-healing. Check margins. 9 6:14 PM [facility] DERMATOPATHOLOGY LABORATORY Gross Description Specimen A: Received is one formalin filled container labeled with the patient's name and designated right post ear. The specimen consists of a shave measuring [id number]. Jar 0. [facility] Dermatopathology [facility] performed the technical component only. 9 6:14 PM [facility] DERMATOPATHOLOGY LABORATORY Embedded Images 9 6:14 PM [facility] DERMATOPATHOLOGY LABORATORY DISCLAIMER An external and internal positive and negative controls are appropriate for the histochemical, immunohistochemical and immunofluorescence stain(s) in this case (if any), except where stated explicitly. The performance characteristics of the stain(s) cited in this report were developed and its performance characteristic determined by the Dermatopathology Laboratory at [facility], directed by Dr. Rima Mac. These tests need not be, and therefore are not, approved by the [place] Food and Drug Administration. The tests are used for clinical purposes. 9 6:14 PM [facility] DERMATOPATHOLOGY LABORATORY at [address] [facility] Pathology/Cytolog y TISSUE SPECIMEN FROM SKIN / Unknown 07/25/2018 07/28/2018 7:05 AM HOOP MACHINE OPERATOR Catalina Rueda MD LAB - PATHOLOGY/CYTOLOGY OR DERABLES Edited Result - Final DERMATOPATHOLOGY LABORATORY [facility] - Department of Dermatology [address] [place] [address] 5th Floor Lab [address] [phone] documented in this encounter Visit Diagnoses Not on filedocumented in this encounter
--- OUTSIDE RECORDS SUMMARY | 2024-12-17 06:27 | XMS_ITS | Encounter Summary ---
Author Organization [facility] Address [address] [place] [address] Care Team Providers Care Motorcycle Racer Name Role Phone Nava Mckeon MD Primary Care Prov ider Unavailable Encounter Details Date Type Department Care Team (Late st Contact Info) Description 08/24/2005 Outpatient Historical [facility] Internal Medicine [place] [address] [place] [address] Ruben De La O MD [address] [place] [address] Social History Tobacco Use Types Packs/Day Years Used Date Smoking Tobacco: Never Assessed Comments Unknown Sex and Gender Information Value Date Recorded Sex Assigned at Not on file Legal Sex Female 4:46 AM ASSEMBLY DEPARTMENT SUPERVISOR Gender Identity Not on file Sexual Orientation Not on file documented as of this encounter Plan of Treatment Not on file documented as of this encounter Visit Diagnoses Not on filedocumented in this encounter Care Teams Motorcycle Racer Relationship Specialty Start Date End Date Nava Mckeon MD PCP - General 11/10/08 06/24/11 documented as of this encounter
--- OUTSIDE RECORDS SUMMARY | 2024-12-17 06:27 | XMS_ITS | Encounter Summary ---
Author Organization [facility] Address [address] [place] [address] Care Team Providers Care Supply Chain Buyer Name Role Phone Nava Mckeon MD Primary Care Prov ider Unavailable Encounter Details Date Type Department Care Team (Late st Contact Info) Description 03/18/2000 Outpatient Historical [facility] Internal Medicine [place] [address] [place] [address] Ruben De La O MD [address] [place] [address] Social History Tobacco Use Types Packs/Day Years Used Date Smoking Tobacco: Never Assessed Comments Unknown Sex and Gender Information Value Date Recorded Sex Assigned at Not on file Legal Sex Female 4:46 AM MEDICAL ASSISTANT OB GYN Gender Identity Not on file Sexual Orientation Not on file documented as of this encounter Plan of Treatment Not on file documented as of this encounter Visit Diagnoses Not on filedocumented in this encounter Care Teams Supply Chain Buyer Relationship Specialty Start Date End Date Nava Mckeon MD PCP - General 11/10/08 06/24/11 documented as of this encounter
--- OUTSIDE RECORDS SUMMARY | 2024-12-17 06:27 | XMS_ITS | Encounter Summary ---
Author Organization [facility] Address [address] [place] [address] Care Team Providers Care Spudder Name Role Phone Nava Mckeon MD Primary Care Prov ider Unavailable Encounter Details Date Type Department Care Team (Late st Contact Info) Description 03/15/2006 Outpatient Historical [facility] Ruben De La O MD [address] [place] [address] Routine General Medical Examination at a Health Care Facility (Primary Dx) Social History Tobacco Use Types Packs/Day Years Used Date Smoking Tobacco: Never Assessed Comments Unknown Sex and Gender Information Value Date Recorded Sex Assigned at Not on file Legal Sex Female 4:46 AM PROJECT GEOLOGIST Gender Identity Not on file Sexual Orientation [...] ORDERABLES Final R esult Performing Organization Address [facility] de Phone Number INTERFACE SYSTEM Refer to clinic/hospital department * (ABNORMAL) CBC WITH DIFFERENTIAL (03/15/2006 12:40 PM CDT) [facility] WBC 5.0 4.0 - 9.8 K/uL INTERFACE [...] ORDERABLES Final R esult Performing Organization Address [facility] Co de Phone Number INTERFACE SYSTEM Refer to clinic/hospital department * TSH REFLEXIVE (03/15/2006 12:40 PM CDT) TSH 1.02 0.27 - 4.20 uU/mL INTERFACE SYSTEM 03/15/2006 12:4 0 PM CDT Ruben De La O MD CHEMISTRY ORDERABLES Final Re sult Performing Organization Address City/[facility] de Phone Number INTERFACE SYSTEM Refer to [...] ORDERABLES Final Re sult Performing Organization Address [facility] Phone Number INTERFACE SYSTEM Refer to clinic/hospital department documented in this encounter Visit Diagnoses Diagnosis Routine general medical examination at a health care facility- Primary documented in this encounter Care Teams Spudder Relationship Specialty Start Date End Date Nava Mckeon MD PCP - General 11/10/08 06/24/11 documented as of this encounter
--- OUTSIDE RECORDS SUMMARY | 2024-12-17 06:27 | XMS_ITS | Encounter Summary ---
Author Organization [facility] Address [address] [place] [address] Care Team Providers Care Operating Room Orderly Name Role Phone Nava Mckeon MD Primary Care Prov ider Unavailable Encounter Details Date Type Department Care Team (Late st Contact Info) Description 03/15/2006 Outpatient Historical [facility] Internal Medicine [place] [address] [place] [address] Ruben De La O MD [address] [place] [address] Social History Tobacco Use Types Packs/Day Years Used Date Smoking Tobacco: Never Assessed Comments Unknown Sex and Gender Information Value Date Recorded Sex Assigned at Not on file Legal Sex Female 4:46 AM ART PREPARATOR Gender Identity Not on file Sexual Orientation Not on file documented as of this encounter Plan of Treatment Not on file documented as of this encounter Visit Diagnoses Not on filedocumented in this encounter Care Teams Operating Room Orderly Relationship Specialty Start Date End Date Nava Mckeon MD PCP - General 11/10/08 06/24/11 documented as of this encounter
--- OUTSIDE RECORDS SUMMARY | 2024-12-17 06:27 | XMS_ITS | Encounter Summary ---
Author Organization [facility] Address [address] [place] [address] Care Team Providers Care Automation Technologist Name Role Phone Nava Mckeon MD Primary Care Prov ider Unavailable Encounter Details Date Type Department Care Team (Late st Contact Info) Description 12/27/1999 Outpatient Historical [facility] Internal Medicine [place] [address] [place] [address] Ruben De La O MD [address] [place] [address] Social History Tobacco Use Types Packs/Day Years Used Date Smoking Tobacco: Never Assessed Comments Unknown Sex and Gender Information Value Date Recorded Sex Assigned at Not on file Legal Sex Female 4:46 AM DESKTOP MANAGER Gender Identity Not on file Sexual Orientation Not on file documented as of this encounter Plan of Treatment Not on file documented as of this encounter Visit Diagnoses Not on filedocumented in this encounter Care Teams Automation Technologist Relationship Specialty Start Date End Date Nava cMkeon MD PCP - General 11/10/08 06/24/11 documented as of this encounter
--- OUTSIDE RECORDS SUMMARY | 2024-12-17 06:27 | XMS_ITS | Encounter Summary ---
Author Organization [facility] Address [address] [place] [address] Care Team Providers Care Saddle Tree Stitcher Name Role Phone Nava Mckeon MD Primary Care Prov ider Unavailable Encounter Details Date Type Department Care Team (Late st Contact Info) Description 12/11/2002 Outpatient Historical [facility] Internal Medicine [place] [address] [place] [address] Ruben De La O MD [address] [place] [address] Social History Tobacco Use Types Packs/Day Years Used Date Smoking Tobacco: Never Assessed Comments Unknown Sex and Gender Information Value Date Recorded Sex Assigned at Not on file Legal Sex Female 4:46 AM PLUNGER MACHINE OPERATOR Gender Identity Not on file Sexual Orientation Not on file documented as of this encounter Plan of Treatment Not on file documented as of this encounter Visit Diagnoses Not on filedocumented in this encounter Care Teams Saddle Tree Stitcher Relationship Specialty Start Date End Date Nava Mckeon MD PCP - General 11/10/08 06/24/11 documented as of this encounter
--- OUTSIDE RECORDS SUMMARY | 2024-12-17 06:27 | XMS_ITS | Encounter Summary ---
Author Organization [employer] Address [address] [place] [address] Care Team Providers Care Packing Attendant Name Role Phone Nava Mckeon MD Primary Care Prov ider Unavailable Encounter Details Date Type Department Care Team (Late st Contact Info) Description 10/14/2000 Outpatient Historical [facility] Ruben De La O MD [address] [place] [address] Abdominal pain, right upper quadrant (Primary Dx) Social History Tobacco Use Types Packs/Day Years Used Date Smoking Tobacco: Never Assessed Comments Unknown Sex and Gender Information Value Date Recorded Sex Assigned at Not on file Legal Sex Female 4:46 AM POWER SYSTEM OPERATOR Gender Identity Not on file Sexual Orientation Not on file documented as of this encounter Plan of Treatment Not on file documented as of this encounter Visit Diagnoses Diagnosis Abdominal pain, right upper quadrant- Primary documented in this encounter Care Teams Packing Attendant Relationship Specialty Start Date End Date Nava Mckeon MD PCP - General 11/10/08 06/24/11 documented as of this encounter
--- OUTSIDE RECORDS SUMMARY | 2024-12-17 06:27 | XMS_ITS | Encounter Summary ---
Author Organization [facility] Address [address] [place] [address] Care Team Providers Care Conference Reservationist Name Role Phone Nava Mckeon MD Primary Care Prov ider Unavailable Encounter Details Date Type Department Care Team (Late st Contact Info) Description 10/12/2003 Outpatient Historical [facility] Internal Medicine [place] [address] [place] [address] Ruben De La O MD [address] [place] [address] Social History Tobacco Use Types Packs/Day Years Used Date Smoking Tobacco: Never Assessed Comments Unknown Sex and Gender Information Value Date Recorded Sex Assigned at Not on file Legal Sex Female 4:46 AM ENERGY MANAGER Gender Identity Not on file Sexual Orientation Not on file documented as of this encounter Plan of Treatment Not on file documented as of this encounter Visit Diagnoses Not on filedocumented in this encounter Care Teams Conference Reservationist Relationship Specialty Start Date End Date Nava Mckeon MD PCP - General 11/10/08 06/24/11 documented as of this encounter
--- OUTSIDE RECORDS SUMMARY | 2024-12-17 06:27 | XMS_ITS | Referral Summary ---
Author Organization [facility] Address [address] [place] [address] Care Team Providers Care Turnstile Collector Name Role Phone Kobe Lyons NP Primary Care Provider [phone] Allergies Active Allergy Reactions Criticality Noted Date [...] Take by intrauterine route. Active vit D3-vit I-mmpxhejbv-ndc s [phone] viml-xeq-sl-mg tablet Take by mouth Active pregabalin (LYRICA) [...] (11/21/2018): Added automatically from request for surgery [id number] Acne 10/22/2014 Overview (09/20/2016): Acne Immunizations Immunization [...] Friends and Family Patient declined 01/14/2019 Attends [employer] Patient declined 12/17 Active Member of [...] Paying Living Expenses Patient dec lined 01/14/2019 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 Gender Identity Female 02/16/2020 7:54 PM CDT [...] on file Medical Devices Implanted Type Area Senior Mainframe Programmer Analyst Device Identifier Shelf Expiration Date Model / Serial / Lot Trimed 3 Hole Bearing - Left Implanted:Qty: 1 on 11/27/2018 by Ro Mcdowell MD at [facility] Plate Left: [employer] Description:Ref#[id number] [employer] Trx2.3-18 2.3mm 18mm Ankle Cortical Screw Bone - [id number] Implanted:Qty: 2 on 11/27/2018 by Ro Mcdowell MD at [facility] Left: [employer] TRX2.3-18 / / [employer] Tpeg-16 16mm Thread Lock Torx Wrist Volar Peg Fixation - [id number] Implanted:Qty: 3 on 11/27/2018 by Ro Mcdowell MD at [facility] Left: [employer] TPEG-16 / / [employer] Tpeg-18 18mm Thread Lock Torx Wrist Volar Peg Fixation - [id number] Implanted:Qty: 2 on 11/27/2018 by Ro Mcdowell MD at [facility] Left: [employer] TPEG-18 / / [employer] Hex3.2-10 3.2mm 10mm Hexagonal Cortical Screw Bone Ankle Fixation System - [id number] Implanted:Qty: 2 on 11/27/2018 by Ro Mcdowell MD at [facility] Left: [employer] HEX3.2-10 / / [employer] Hex 3212 3.2mm 12mm Hexagonal Cortical Screw Bone Ankle Fixation System - [id number] Implanted:Qty: 1 on 11/27/2018 by Ro Mcdowell MD at [facility] Left: [employer] HEX 3212 / / Explanted Type Area Senior Mainframe Programmer Analyst Device Identifier Shelf Expiration Date Model / Serial / Lot Tr[employer] Inc Trx2.3-18 2.3mm 18mm Ankle Cortical Screw Bone - [id number] Explanted:Qty: 1 on 11/27/2018 at [facility] [employer] TRX2.3-18 / / [employer] Hex 3214 3.2mm 14mm Hexagonal Cortical Screw Bone Ankle Fixation System - [id number] Implanted:Qty: 1 Explanted:Qty: 1 on 11/27/2018 at [facility] Left: [employer] HEX 3214 [...] CDT 02/25/2021 12:12 PM [address] PATHOLOGY [facility] - 03/02/2021 10:19 AM CDT EPIC results best viewed via link to PDF [address] [address] Tele: Tiarra Grigsby MD - Rotary Slicing Machine Operator CYTOLOGY REPORT Note to Patients: This [...] the details. Patient Name: RONEY SEWELL Address: [address] [place] [address] Gender: F : 1980 (Age: 40) Service: Location: [facility] #: [id number] Patient Type: [facility] SPECIMEN Taken: 02/17/2021 Reported: 03/02/2021 Physician(s): Kirsten [...] LAB CYTOLOGY ORDERABLES Fin al Result PATHOLOGY 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
--- OUTSIDE RECORDS SUMMARY | 2024-12-17 06:27 | XMS_ITS | Encounter Summary ---
Author Organization [facility] Address [address] [place] [address] Care Team Providers Care Mining And Quarrying Machinery Repairer Name Role Phone Nava Mckeon MD Primary Care Prov ider Unavailable Encounter Details Date Type Department Care Team (Late st Contact Info) Description 03/29/1998 Outpatient Historical [facility] Internal Medicine [place] [address] [place] [address] Ruben De La O MD [address] [place] [address] Social History Tobacco Use Types Packs/Day Years Used Date Smoking Tobacco: Never Assessed Comments Unknown Sex and Gender Information Value Date Recorded Sex Assigned at Not on file 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
--- OUTSIDE RECORDS SUMMARY | 2024-12-17 06:28 | XMS_ITS | Encounter Summary ---
Author Organization [facility] Address 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
[2024-12-17 06:44] VITALS: BMI 22.7
[2024-12-17 06:46] VITALS: BP 105/61; PULSE 57; RESP 16; TEMP 36.8; O2SAT 100
--- NOTE | 2024-12-17 06:49 | P.OP_ITS ---
Procedure Note - Detailed Date of Procedure 12/17/24 Pre-op Diagnosis Left Cubital and Carpal Tunnel Syndrome Post-op Diagnosis Same Procedure Performed left ectr and CuTR Surgeon Chad Youssef MD Choir Accompanist brigid benoit pa-c Anesthesia MAC Description of Procedure INFORMED CONSENT: The patient was seen and examined and marked in the pre-op area.? The patient signed the consent form. PROCEDURE IN DETAIL:The patient taken back to OR on the stretcher in supine position. Time out performed with anesthesia, surgeon and staff agreeing on patient's name site and surgery to be performed SCDs were placed on the lower extremities and inflated. A tourniquet was placed on {left} upper extremity and antibiotics given IV After anesthesia administered sedation I injected {10}cc 1%lido with epi and 0.5% marcaine plain at the operative sites The?{left upper extremity}?was prepped and draped in sterile fashion the??{left upper extremity} was? exsanguinated with Esmarch bandage and tourniquet inflated to 250mmHg I made a transverse incision in the {left} volar distal wrist crease through skin and dermis with 15 blade scalpel.? Littler scissors spread down to antebrachial fascia. A small incision was made in antebrachial fascia allowing access to Carpal tunnel. I proceeded with sequential dilation staying in line with the ring finger and hugging the hook of the hamate.? I then used the synovial elevator to free any adhesions from the underside of the transverse carpal ligament. Next I was able to insert the Microaire endoscopic carpal tunnel device with direct visualization of the transverse fibers on the monitor and proceeded with complete segmental retrograde release of the ligament in its entirety.? I irrigated with normal saline and closed with 4-0 monocryl for dermis and subcuticular closure. I next proceeded with making a longitudinal incision between two heads for flexor carpi ulnaris at end of {left} cubital tunnel with 15 blade scalpel.? Littler scissors were used to spread down to FCU fascia.? An incision was made in FCU fascia and ulnar nerve identified exiting cubital tunnel.? I proceeded with complete retrograde release of the cubital tunnel including 7cm proximal for the intermuscular septum.? The nerve appeared healthy with visible vaso nervorum.? There was no subluxation on full elbow range of motion. ? I irrigated with normal saline and closure with 3-0 vicryl for dermis and 4-0 monocryl for subcuticular. The incisions were covered with Dermabond then 4x4s, cassandra, and a posterior elbow and volar wrist splint for patient safety, security and comfort and secured with theo bandages after the tourniquet was let down noting the hand was warm and well perfused.? Patient awaken from anesthesia and transferred to recovery in stable condition Complications - none EBL- 1cc Disposition - home in stable condition Brigid Benoit PA-C was essential for positionign, retraction, closure and dressing placement [facility] Billing Surgery - Charge Forward: Surgery Billing ([id number])
--- NOTE | 2024-12-17 06:49 | PM.HPGS ---
History of Present Illness History of Present Illness Chief complaint: Left Cubital and Carpal Tunnel Syndrome Narrative: Patient seen and examined in pre-operative holding area. No interval change in medical history or symptoms. Patient recalls previous discussion of benefits and alternatives to procedure. Continues to desire to proceed with left endoscopic possible open carpal tunnel release and left cubital tunnel release . Reviewed procedure, post-op expectations and risks including but not limited to bleeding, infection, injury to tendon/nerve/vessel, decreased hand function, stiffness, RSD, no change or worsening of symptoms. I discussed the possible use of assistants and their participation in the case. Patient stated understanding and signed the consent form wishing to proceed. Review of Systems Review of Systems: All systems reviewed & are unremarkable except as noted in HPI and below PMFSH Social History Social History (Updated 07/08/24 @ 08:13 by Nona Cox MA) Smoking status: Never smoker Substance use type: does not use Living arrangements: with family Meds Home Medications and Allergies Home Medications ?Medication ?Instructions ?Recorded ?Confirmed ?Type magnesium 1 tablet PO DIRECTED 11/27/24 12/17/24 History pregabalin 75 mg capsule 75 mg PO Q12H 11/27/24 12/17/24 History Allergies Allergy/AdvReac Type Severity Reaction Status Date / Time oxycodone Allergy Unknown Nausea and Verified 12/17/24 06:35 Vomiting adhesive tape Allergy Rash Verified 12/17/24 06:35 azithromycin AdvReac Intermediate Abdominal Verified 12/17/24 06:35 Pain Vital Signs Vital Signs - 24 hr 12/17/24 06:46 Temperature 36.8 C Pulse Rate 57 L Respiratory Rate 16 Blood Pressure 105/61 Pulse Oximetry 100 Oxygen Delivery Room Air Exam Narrative: unchanged Assessment and Plan Assessment and plan (1) Ulnar nerve entrapment at elbow: Qualifiers: Laterality: unspecified laterality Qualified Code(s): G56.20 - Lesion of ulnar nerve, unspecified upper limb Code(s): G56.20 - Lesion of ulnar nerve, unspecified upper limb Status: Acute Assessment and Plan: cont as above (2) Carpal tunnel syndrome of right wrist: Code(s): G56.01 - Carpal tunnel syndrome, right upper limb Status: Acute (3) Left carpal tunnel syndrome: Code(s): G56.02 - Carpal tunnel syndrome, left upper limb Status: Acute
[2024-12-17] MEDS: ACETAMINOPHEN 500 MG TABLET 1000 MG PO (06:55)
--- NOTE | 2024-12-17 07:38 | WPDANESEPPF ---
Anes - Initial Pre Proc Eval Procedure: Operation Date: 12/17/24 08:00 Proposed Procedures p Left Endoscopic Carpal Tunnel Release, Possible Open Carpal Tunnel Release - Chad Youssef MD s Left Cubital Tunnel Release - Chad Youssef MD Date/Time: 12/17/24 07:38 Surgeon: Chad Youssef MD Pre Op Diagnosis: Left Cubital and Carpal Tunnel Syndrome Patient Data Age: 44 Gender: F Height: 1.6 m Weight: 58.3 kg Last Vital Signs Temp 98.2 F 12/17/24 06:46 Pulse 57 L 12/17/24 06:46 Resp 16 12/17/24 06:46 BP 105/61 12/17/24 06:46 Pulse Ox 100 12/17/24 06:46 O2 Del Method Room Air 12/17/24 06:46 Allergies Allergy/AdvReac Type Severity Reaction Status Date / Time oxycodone Allergy Unknown Nausea and Verified 12/17/24 06:35 Vomiting adhesive tape Allergy Rash Verified 12/17/24 06:35 azithromycin AdvReac Intermediate Abdominal Verified 12/17/24 06:35 Pain Home Medications ?Medication ?Instructions ?Recorded ?Confirmed ?Type magnesium 1 tablet PO DIRECTED 11/27/24 12/17/24 History pregabalin 75 mg capsule 75 mg PO Q12H 11/27/24 12/17/24 History tramadol 50 mg tablet 50 mg PO Q6H PRN pain #12 tabs 12/17/24 Rx Patient hx anesthesia problems: none Family hx anesthesia problems: none Results Review: All pre-operative results and documents have been reviewed as part of the pre-operative evaluation. [facility] Social History Social History (Updated 07/08/24 @ 08:13 by Nona Cox MA) Smoking status: Never smoker Substance use type: does not use Living arrangements: with family Anes - Eval Final PreProcedure Day of Procedure 12/17/24 07:38 Heart: regular rate and rhythm Lungs: clear to auscultation Airway: Mallampati scale class 1 Neurological: alert and oriented Last oral intake: >/= 8 hours ASA classification: II Anesthetic plan: proceed Anesthesia type and monitoring: monitored anesthesia care Results Review: All pre-operative results and documents have been reviewed as part of the pre-operative evaluation. Informed Consent: The patient's anesthetic plan and its attendant risks and benefits were discussed with the patient/family/POA. Questions were solicited and answers provided to the satisfaction of the patient/family/POA.
--- NOTE | 2024-12-17 07:39 | WPDANESPN ---
Anes - Prog Note Post-Op Date/Time: 12/17/24 07:39 Vital Signs: Last Vital Signs Temp 98.2 F 12/17/24 06:46 Pulse 57 L 12/17/24 06:46 Resp 16 12/17/24 06:46 BP 105/61 12/17/24 06:46 Pulse Ox 100 12/17/24 06:46 O2 Del Method Room Air 12/17/24 06:46 Pain Score (VAS): no Patient Feedback: Patient satisfied with anesthetic care.
[2024-12-17] MEDS: LACTATED RINGERS 1,000 ML 30 ML IV CONT (08:00)
[2024-12-17] MEDS: ceFAZolin SODIUM 2 GM/20 ML SW SYRINGE IV PUSH (08:04)
[2024-12-17] MEDS: LIDO 1%/EPINEPHRINE 1:100,000 10 ML VIAL 6 ML INFILTRATE (08:08)
[2024-12-17 08:33] VITALS: BP 94/55; PULSE 60; RESP 15; O2SAT 98
[2024-12-17 08:43] VITALS: BP 97/56; PULSE 58; RESP 16; O2SAT 97
[2024-12-17 08:53] VITALS: BP 102/56; PULSE 45; RESP 16; O2SAT 98
== END 2024-12-17 09:08 | disposition home or self-care (01) ==
PROVIDERS: PCP Internal Medicine; Visit Provider Plastic Surgery
PROC: 01N54ZZ Release Median Nerve, Percutaneous Endoscopic Approach (ICD-10-PCS; CPT 29848; principal; 2024-12-17 08:00)
PROC: (CPT 64718; 2024-12-17 08:00)
DX: G56.02 Carpal tunnel syndrome, left upper limb (principal); G56.22 Lesion of ulnar nerve, left upper limb
CPT/HCPCS: 29848; 64718